=== PATIENT | male | born 1965 | race Caucasian/White ===

== ENCOUNTER 2018-04-11 15:06 | Emergency (ER) | payer OTHER ==
[2018-04-11] MEDS ORDERED: DEXAMETHASONE 10 MG/ML VIAL ONE (15:58)
[2018-04-11] MEDS ORDERED: KETOROLAC 30 MG/ML INJ ONE (15:59)
--- NOTE | 2018-04-11 17:05 | ER ---
Nurse's Notes [facility] Name: Jose Francisco Machado Age: 52 yrs Sex: Male : 1965 Arrival Date: 04/11/2018 Time: 15:09 Bed 27 Private MD: KENDRA GARDNER Diagnosis: Sciatica, left side Presentation: 04/11 15:13 Presenting complaint: Patient states: Left hip pain that radiated to left leg. Hx hb sciatica. Reports pain is similar. Denies injury. Transition of care: patient was not received from another setting of care. Onset of symptoms was April 10, 2018. Risk Assessment: Do you want to hurt yourself or someone else? Patient reports no desire to harm self or others. Initial Sepsis Screen: Does the patient meet any 2 criteria? No. Patient's initial sepsis screen is negative. Does the patient have a suspected source of infection? No. Patient's initial sepsis screen is negative. Care prior to arrival: None. 15:13 Method Of Arrival: Ambulatory hb 15:13 Acuity: SUSI 4 hb Historical: - Allergies: 15:18 Vicodin (Rash); hb 15:18 Cipro; hb - Home Meds: 15:18 losartan-hydrochlorothiazide Oral [Active]; metformin 500 mg Oral tr24 1 tab once daily hb [Active]; gabapentin 300 mg oral cap [Active]; meloxicam oral oral [Active]; - PMHx: 15:18 Diabetes - NIDDM; Hypertension; hb - PSHx: 15:18 Hernia repair; back; neck; right shoulder; hb - Immunization history:: Adult Immunizations up to date. - Social history:: Smoking status: Patient/guardian denies using tobacco. - Ebola Screening: : No symptoms or risks identified at this time. Screenin:41 Abuse screen: Denies threats or abuse. Nutritional screening: No deficits noted. tl3 Tuberculosis screening: No symptoms or risk factors identified. Fall Risk None identified. Assessment: 15:41 General: Appears distressed, uncomfortable, well groomed, well developed, well tl3 nourished, Behavior is cooperative, appropriate for age, crying. Pain: Complains of pain in pain that starts in the left buttock, radiates through hip and down left leg to the foot. Neuro: Level of Consciousness is awake, alert, Oriented to person, place, time, situation, Appropriate for age. Cardiovascular: Heart tones S1 S2 present Patient's skin is warm and dry. Respiratory: Airway is patent Respiratory effort is even, unlabored, Respiratory pattern is regular, symmetrical, Breath sounds are clear bilaterally. GI: No deficits noted. No signs and/or symptoms were reported involving the gastrointestinal system. : No deficits noted. No signs and/or symptoms were reported regarding the genitourinary system. EENT: No deficits noted. No signs and/or symptoms were reported regarding the EENT system. Derm: No deficits noted. No signs and/or symptoms reported regarding the dermatologic system. Musculoskeletal: No deficits noted. No signs and/or symptoms reported regarding the musculoskeletal system. 16:30 Reassessment: Patient appears in no apparent distress at this time. No changes from rk2 previously documented assessment. Patient and/or family updated on plan of care and expected duration. Pain level reassessed. No needs voiced \T\ this time. Vital Signs: 15:16 BP 117 / 101; Pulse 88; Resp 16; Temp 98.1; Pulse Ox 100% on R/A; Weight 127.01 kg; hb Height 6 ft. 2 in. (187.96 cm); Pain 10/10; 15:41 BP 141 / 94; Pulse 89; Resp 18; Pulse Ox 100% on R/A; tl3 16:52 BP 144 / 69; Pulse 110; Resp 18; Pulse Ox 97% on R/A; tl3 15:16 Body Mass Index 35.95 (127.01 kg, 187.96 cm) hb ED Course: 15:09 Patient arrived in ED. mr 15:09 LA, LA is Private Physician. mr 15:16 Triage completed. hb 15:18 Arm band placed on left wrist. hb 15:19 Arina Smallwood, MERCEDES is Primary Nurse. rk2 15:24 David Taylor NP is PHCP. pm1 15:24 Mckinley Rasmussen MD is Attending Physician. pm1 15:41 Patient has correct armband on for positive identification. Bed in low position. Side tl3 rails up X 1. Adult w/ patient. Pulse ox on. NIBP on. 15:41 No provider procedures requiring assistance completed. tl3 17:54 Patient did not have IV access during this emergency room visit. rk2 Administered Medications: 16:02 Drug: Decadron 10 mg Route: IM; Site: left deltoid; rk2 17:53 Follow up: Response: No adverse reaction rk2 16:03 Drug: TORadol 60 mg Route: IM; Site: right deltoid; rk2 17:53 Follow up: Response: No adverse reaction rk2 17:17 Drug: morphine 4 mg Route: IM; Site: right deltoid; rk2 17:52 Follow up: Response: No adverse reaction; given before DC rk2 Intake: Outcome: 17:03 Discharge ordered by MD. pm1 17:53 Discharged to home ambulatory, with family. rk2 17:53 Condition: improved 17:53 Discharge instructions given to patient, Prescriptions given X 2. 17:54 Patient left the ED. rk2 Signatures: Franci Massey ClaudiaDavid, CRACK OFF PERSON CRACK OFF PERSON pm1 Velma Quijano, RN RN Arina Smallwood RN RN rk2 Alma Martinez RN RN tl3 Corrections: (The following items were deleted from the chart) 15:59 15:41 Pain: Complains of pain in pain that starts in the left lower back, radiates tl3 through hip and down left leg to the foot tl3
--- NOTE | 2018-04-11 17:05 | EDPHYS ---
Physician Documentation [facility] Name: Jose Francisco Machado Age: 52 yrs Sex: Male : 1965 Arrival Date: 04/11/2018 Time: 15:09 Bed 27 Private MD: KENDRA, [place] ED Physician Mckinley Rasmussen HPI: 04/11 17:30 This 52 yrs old Male presents to ER via Ambulatory with complaints of Left pm1 hip pain. 17:30 The patient presents with pain. The symptoms are located in the Left hip. Onset: The pm1 symptoms/episode began/occurred yesterday. The pain radiates to the left leg. Associated signs and symptoms: Pertinent negatives: abdominal pain, chest pain, dysuria, fever, incontinence, numbness, vomiting, weakness. The problem was sustained Standing up from seated position. Patient with history of sciatica treated at [facility] with steroid injections and surgery in the past. Modifying factors: The patient symptoms are alleviated by lying flat, the patient symptoms are aggravated by movement. Severity of symptoms: in the emergency department the symptoms are actually worse. The patient has experienced similar episodes in the past, multiple times, chronically. 17:30 No trauma. pm1 Historical: - Allergies: 15:18 Vicodin (Rash); hb 15:18 Cipro; hb - Home Meds: 15:18 losartan-hydrochlorothiazide Oral [Active]; metformin 500 mg Oral tr24 1 tab once daily hb [Active]; gabapentin 300 mg oral cap [Active]; meloxicam oral oral [Active]; - PMHx: 15:18 Diabetes - NIDDM; Hypertension; hb - PSHx: 15:18 Hernia repair; back; neck; right shoulder; hb - Immunization history:: Adult Immunizations up to date. - Social history:: Smoking status: Patient/guardian denies using tobacco. - Ebola Screening: : No symptoms or risks identified at this time. ROS: 17:30 Constitutional: Negative for fever, chills, and weight loss, Eyes: Negative for injury, pm1 pain, redness, and discharge, ENT: Negative for injury, pain, and discharge, Neck: Negative for injury, pain, and swelling, Cardiovascular: Negative for chest pain, palpitations, and edema, Respiratory: Negative for shortness of breath, cough, wheezing, and pleuritic chest pain, Abdomen/GI: Negative for abdominal pain, nausea, vomiting, diarrhea, and constipation, Back: Negative for injury and pain. 17:30 Skin: Negative for injury, rash, and discoloration, Neuro: Negative for headache, weakness, numbness, tingling, and seizure. 17:30 MS/extremity: Positive for left hip pain, Negative for decreased range of motion, deformity, paresthesias, tingling. Exam: 17:30 Constitutional: This is a well developed, well nourished patient who is awake, alert, pm1 and in no acute distress. Head/Face: Normocephalic, atraumatic. Eyes: Pupils equal round and reactive to light, extra-ocular motions intact. Lids and lashes normal. Conjunctiva and sclera are non-icteric and not injected. Cornea within normal limits. Periorbital areas with no swelling, redness, or edema. ENT: Nares patent. No nasal discharge, no septal abnormalities noted. Tympanic membranes are normal and external auditory canals are clear. Oropharynx with no redness, swelling, or masses, exudates, or evidence of obstruction, uvula midline. Mucous membranes moist. Neck: Trachea midline, no thyromegaly or masses palpated, and no cervical lymphadenopathy. Supple, full range of motion without nuchal rigidity, or vertebral point tenderness. No Meningismus. Chest/axilla: Normal chest wall appearance and motion. Nontender with no deformity. No lesions are appreciated. Cardiovascular: Regular rate and rhythm with a normal S1 and S2. No gallops, murmurs, or rubs. No pulse deficits. Respiratory: Lungs have equal breath sounds bilaterally, clear to auscultation and percussion. No rales, rhonchi or wheezes noted. No increased work of breathing, no retractions or nasal flaring. Abdomen/GI: Soft, non-tender, with normal bowel sounds. No distension or tympany. No guarding or rebound. No evidence of tenderness throughout. Back: No spinal tenderness. No costovertebral tenderness. Full range of motion. Skin: Warm, dry with normal turgor. Normal color with no rashes, no lesions, and no evidence of cellulitis. MS/ Extremity: Pulses equal, no cyanosis. Neurovascular intact. Full, normal range of motion. 17:30 Neuro: Orientation: is normal, Motor: is normal, moves all fours, strength is 5/5 in all extremities, Sensation: is normal, no obvious gross deficits, Babinski testing is normal. Vital Signs: 15:16 BP 117 / 101; Pulse 88; Resp 16; Temp 98.1; Pulse Ox 100% on R/A; Weight 127.01 kg; hb Height 6 ft. 2 in. (187.96 cm); Pain 10/10; 15:41 BP 141 / 94; Pulse 89; Resp 18; Pulse Ox 100% on R/A; tl3 16:52 BP 144 / 69; Pulse 110; Resp 18; Pulse Ox 97% on R/A; tl3 15:16 Body Mass Index 35.95 (127.01 kg, 187.96 cm) hb MDM: 15:24 Patient medically screened. pm1 17:03 Data reviewed: vital signs. Data interpreted: Pulse oximetry: on room air is 97 %. pm1 Interpretation: normal. Counseling: I had a detailed discussion with the patient and/or guardian regarding: the historical points, exam findings, and any diagnostic results supporting the discharge/admit diagnosis, the need for outpatient follow up, to return to the emergency department if symptoms worsen or persist or if there are any questions or concerns that arise at home. Administered Medications: 16:02 Drug: Decadron 10 mg Route: IM; Site: left deltoid; rk2 17:53 Follow up: Response: No adverse reaction rk2 16:03 Drug: TORadol 60 mg Route: IM; Site: right deltoid; rk2 17:53 Follow up: Response: No adverse reaction rk2 17:17 Drug: morphine 4 mg Route: IM; Site: right deltoid; rk2 17:52 Follow up: Response: No adverse reaction; given before DC rk2 Disposition: 04/12 14:10 Co-signature as Attending Physician, Mckinley Rasmussen MD I agree with the assessment and shira plan of care. Disposition: 04/11/18 17:03 Discharged to Home. Impression: Sciatica, left side. - Condition is Stable. - Discharge Instructions: Sciatica. - Prescriptions for Tylenol- Codeine #3 300-30 mg Oral Tablet - take 2 tablets by ORAL route every 6 hours As needed; 20 tablet. Medrol (Edmond) 4 mg Oral Tablets, Dose Pack - take 1 tablet by ORAL route as directed - follow package instructions; 1 packet. - Medication Reconciliation Form, Thank You Letter, Prescription Opioid Use, Work release form form. - Follow up: Emergency Department; When: As needed; Reason: Worsening of condition. Follow up: Private Physician; When: 2 - 3 days; Reason: Recheck today's complaints, Continuance of care, Re-evaluation by your physician. - Problem is new. - Symptoms have improved. Signatures: Mckinley Rasmussen MD MD cha Marinas, Patrick, NP COUNTY ASSESSOR pm1 Velma Quijano RN RN Arina Smallwood RN RN rk2 Corrections: (The following items were deleted from the chart) 04/11 17:54 17:03 04/11/2018 17:03 Discharged to Home. Impression: Sciatica, left side. Condition rk2 is Stable. Forms are Medication Reconciliation Form, Thank You Letter, Antibiotic Education, Prescription Opioid Use. Follow up: Emergency Department; When: As needed; Reason: Worsening of condition. Follow up: Private Physician; When: 2 - 3 days; Reason: Recheck today's complaints, Continuance of care, Re-evaluation by your physician. Problem is new. Symptoms have improved. pm1
[2018-04-11] MEDS ORDERED: MORPHINE 4 MG/ML SYR ONE (17:16)
== END 2018-04-11 17:54 | disposition home or self-care (01) ==
LOC: ER 15:06
DX: M54.32 Sciatica, left side (principal); E11.9 Type 2 diabetes mellitus without complications; I10 Essential (primary) hypertension; Z88.6 Allergy status to analgesic agent; Z88.3 Allergy status to other anti-infective agents
CPT/HCPCS: 96372; 99283; J1100

== ENCOUNTER 2019-05-28 11:48 | Emergency (ER) | payer OTHER ==
--- OUTSIDE RECORDS SUMMARY | 2019-05-28 11:49 | XMS REPORT ---
:1965 [facility] Address [address] [place] [address] Dr. Latham [address] [place] [id number] Care Team Providers Name Role Phone Unavailable Unavailable Unavailable Problems This patient has no known problems. Allergies, Adverse Reactions, Alerts This patient has no known allergies or adverse reactions. Medications This patient has no known medications.
[2019-05-28 13:28] LABS: Absolute Lymphocytes (CBC) 1.2 K/uL (0.7-4.9); Basophils % 0.1 % (0-1.3); Hematocrit 43.8 % (39.6-49.0); Lymphocytes % 7.7 % (15.3-44.8); MPV 9.5 fL (7.6-11.3)
[2019-05-28 13:30] LABS: Protime INR 1.22
[2019-05-28 13:38] LABS: ALT/SGPT 29 U/L (12-78); AST/SGOT 9 U/L (15-37); Alkaline Phosphatase 90 U/L (45-117); BUN Blood Urea Nitrogen 16 mg/dL (7-18); Bicarbonate 27 mmol/L (21-32); Bilirubin Direct 0.2 mg/dL (0-0.2); Bilirubin Total 0.9 mg/dL (0.2-1.0); Glucose Level 115 mg/dL (74-106); Lipase 40 U/L (73-393); Magnesium 2.3 mg/dL (1.8-2.4); NT PRO-BNP 29 pg/mL (<125); Potassium 3.8 mmol/L (3.5-5.1); Protein, Total 7.3 g/dL (6.4-8.2); Sodium Level 139 mmol/L (136-145); Troponin (Emerg Dept Use Only) < 0.02 ng/mL (0.0-0.045)
--- NOTE | 2019-05-28 14:34 | RAD REPORT ---
EXAM DESCRIPTION: CT - Abdomen Pelvis W Contrast - 05/28/2019 2:20 pm CLINICAL HISTORY: Abdominal pain with diarrhea COMPARISON: none. TECHNIQUE: Computed axial tomography of the abdomen pelvis was obtained. 100 cc Isovue-300 was admin istered intravenously. Oral contrast was not requested which limits evaluation of bowel. All CT scans are performed using dose optimization technique as appropriate and may include automated exposure control or mA/KV adjustment according to patient size. FINDINGS: The liver, spleen, pancreas, adrenal and kidneys appear unremarkable. There is no evidence of diverticulitis. A normal appendix Small right inguinal hernia contains fat Spondylolysis L5. Sclerosis involving the vertebral endplates of L2 and L3 IMPRESSION: Sclerosis involving the vertebral endplates of L2 and L3 . Most likely this is secondary to degenerative changes. An inflammatory/infectious process can also result this appearance and shou ld be correlated clinically with appropriate lab values.
--- NOTE | 2019-05-28 14:36 | RAD REPORT ---
EXAM DESCRIPTION: Donna Single View05/28/2019 1:48 pm CLINICAL HISTORY: Chest pain COMPARISON: 2017 FINDINGS: The lungs appear clear of acute infiltrate. The heart is normal size IMPRESSION: No acute abnormalities displayed
[2019-05-28 15:38] LABS: Blood Morphology Comment NOT SEEN (NOT SEEN); Platelet Estimate ADEQ; Urine White Blood Cell Casts OK
--- NOTE | 2019-05-28 16:04 | EDPHYS ---
Physician Documentation [facility] Name: Jose Francisco Machado Age: 53 yrs Sex: Male : 1965 Arrival Date: 05/28/2019 Time: 11:50 Bed 15 Private MD: ED Physician Mckinley Rasmussen HPI: 05/28 13:00 This 53 yrs old Male presents to ER via Ambulatory with complaints of cp Abdominal Pain, Weakness, Dizziness. 13:00 The patient presents with abdominal pain mid abdomen. cp 13:00 Onset: The symptoms/episode began/occurred this morning, upon awakening. cp 13:00 The symptoms do not radiate. Associated signs and symptoms: Pertinent positives: cp diarrhea, headache, vomiting, dizziness, general weakness, Pertinent negatives: blood in stools, chest pain, constipation, dysuria, fever, palpitations, shortness of breath, testicular pain. 13:00 The symptoms are described as achy. cp Historical: - Allergies: 12:09 Cipro; aj1 12:09 Vicodin (rash); aj1 12:09 Clindamycin; aj1 12:09 Percocet; aj1 - PMHx: 12:09 Diabetes - NIDDM; Hypertension; aj1 - Immunization history:: Flu vaccine is up to date. - Social history:: Smoking status: Patient uses tobacco products, smokes one pack cigarettes per day. - Ebola Screening: : Patient denies travel to an Ebola-affected area in the 21 days before illness onset. ROS: 13:05 Constitutional: Negative for body aches, chills, fever, poor PO intake. cp 13:05 Eyes: Negative for injury, pain, redness, and discharge. cp 13:05 Neck: Negative for pain with movement, pain at rest, stiffness. cp 13:05 Cardiovascular: Negative for chest pain, edema, palpitations. 13:05 Respiratory: Negative for cough, shortness of breath, wheezing. 13:05 Abdomen/GI: Positive for abdominal pain, diarrhea, Negative for vomiting, constipation, black/tarry stool, rectal bleeding. 13:05 Back: Negative for pain at rest, pain with movement, radiated pain. 13:05 : Negative for urinary symptoms, flank pain, testicular pain cp 13:05 Skin: Negative for cellulitis, rash. 13:05 Neuro: Positive for dizziness, headache, Negative for altered mental status, weakness. 13:05 All other systems are negative. Exam: 13:12 Constitutional: The patient appears in no acute distress, alert, awake, cp non-diaphoretic, well developed, well nourished. 13:12 Head/Face: Normocephalic, atraumatic. cp 13:12 Eyes: Periorbital structures: appear normal, Conjunctiva: normal, no exudate, no injection, Sclera: no appreciated abnormality, Lids and lashes: appear normal, bilaterally. 13:12 ENT: External ear(s): are unremarkable, Nose: is normal, Mouth: Lips: moist, Oral mucosa: pink and intact, moist, Posterior pharynx: is normal, airway is patent, no erythema, no exudate. 13:12 Neck: ROM/movement: is normal, is supple, without pain, no range of motions limitations, no meningismus, no nuchal rigidity. 13:12 Chest/axilla: Inspection: normal, Palpation: is normal, no crepitus, no tenderness. 13:12 Cardiovascular: Rate: normal, Rhythm: regular, Edema: is not appreciated, JVD: is not appreciated. 13:12 Respiratory: the patient does not display signs of respiratory distress, Respirations: normal, no use of accessory muscles, no retractions, no splinting, no tachypnea, labored breathing, is not present, Breath sounds: are clear throughout, no decreased breath sounds, no stridor, no wheezing. 13:12 Abdomen/GI: Inspection: abdomen appears normal, Bowel sounds: active, all quadrants, Palpation: soft, in all quadrants, mild abdominal tenderness, in the , mid upper abdomen, rebound tenderness, is not appreciated, voluntary guarding, is not appreciated, involuntary guarding, is not appreciated. 13:12 Back: pain, is absent, ROM is normal, vertebral tenderness, is not appreciated. 13:12 Skin: no rash present. 13:12 Neuro: Orientation: to person, place \T\ time. Mentation: is normal, Motor: moves all fours, strength is normal. 13:15 ECG was reviewed by the Attending Physician. cp Vital Signs: 12:09 BP 141 / 82; Pulse 81; Resp 18; Temp 98.9; Pulse Ox 97% on R/A; Weight 120.2 kg (R); aj1 Height 6 ft. (182.88 cm) (R); Pain 3/10; 13:36 BP 123 / 70 Supine; Pulse 68; Resp 17; Temp 99.2(O); Pulse Ox 98% ; lt1 13:37 BP 109 / 71 Sitting; Pulse 75; lt1 13:37 BP 122 / 77 Standing; lt1 14:30 BP 124 / 77; Pulse 72; Resp 17; Temp 98.9(O); Pulse Ox 97% on R/A; Pain 3/10; rb1 15:30 BP 122 / 73; Pulse 73; Resp 17; Temp 98.4(O); Pulse Ox 98% on R/A; Pain 2/10; rb1 16:10 BP 123 / 76; Pulse 71; Resp 17; Temp 98.5; Pulse Ox 98% on R/A; rv 12:09 Body Mass Index 35.94 (120.20 kg, 182.88 cm) aj1 MDM: 12:24 Patient medically screened. cp 13:00 Differential diagnosis: cholecystitis, Cholelithiasis, diverticulitis, gastritis, cp non-specific abd pain, pancreatitis, Peptic Ulcer Disease, Perf. Duodenal Ulcer, Perf. Gastric Ulcer, Pyelonephritis, Ureterolithiasis, urinary tract infection. 16:00 Data reviewed: vital signs, nurses notes, lab test result(s), radiologic studies, CT cp scan. 16:00 Special discussion: Based on the patient's Hx, exam, and Dx evaluation, there is no cp indication for emergent surgery or inpatient Tx. It is understood by the patient/guardian that if the Sx's persist or worsen they need to return immediately for re-evaluation. 16:00 Counseling: I had a detailed discussion with the patient and/or guardian regarding: the cp historical points, exam findings, and any diagnostic results supporting the discharge/admit diagnosis, lab results, radiology results, the need for outpatient follow up, a last cleaner, to return to the emergency department if symptoms worsen or persist or if there are any questions or concerns that arise at home. 16:00 Response to treatment: the patient's symptoms have mildly improved after treatment, and cp as a result, I will discharge patient. 05/28 12:35 Order name: Basic Metabolic Panel; Complete Time: 13:48 cp 05/28 13:46 Interpretation: Normal except: GLUC 115; GFR 79. cp 05/28 12:35 Order name: CBC with Diff 05/28 13:47 Interpretation: Normal except: WBC 15.1; DEEPAK% 85.8; LYM% 7.7; NEUT A 13.0. 05/28 12:35 Order name: LFT's; Complete Time: 13:48 cp 05/28 12:35 Order name: Magnesium; Complete Time: 13:48 05/28 12:35 Order name: NT PRO-BNP; Complete Time: 13:48 cp 05/28 12:35 Order name: PT-INR; Complete Time: 13:48 05/28 12:35 Order name: Troponin (emerg Dept Use Only); Complete Time: 13:48 05/28 12:35 Order name: EKG; Complete Time: 12:38 05/28 12:35 Order name: Lipase; Complete Time: 13:48 05/28 14:37 Interpretation: LIP 40; Reviewed. 05/28 12:56 Order name: XRAY Chest (1 view); Complete Time: 14:36 05/28 13:47 Order name: CT Abd/Pelvis - IV Contrast Only; Complete Time: 14:36 05/28 15:38 Order name: CBC Smear Scan EDMS 05/28 16:01 Order name: Urine Dipstick--Ancillary (enter results) 05/28 12:35 Order name: Orthostatics; Complete Time: 13:37 cp 05/28 12:35 Order name: Cardiac monitoring; Complete Time: 13:04 05/28 12:35 Order name: EKG - Nurse/Tech; Complete Time: 13:04 05/28 12:35 Order name: IV Saline Lock; Complete Time: 13:10 05/28 12:35 Order name: Labs collected and sent; Complete Time: 13:10 05/28 12:35 Order name: O2 Per Protocol; Complete Time: 13:04 05/28 12:35 Order name: O2 Sat Monitoring; Complete Time: 13:04 05/28 12:35 Order name: Accucheck Blood Glucose; Complete Time: 13:37 05/28 14:48 Order name: Urine Dipstick-Ancillary (obtain specimen); Complete Time: 16:00 cp EC:15 Rate is 72 beats/min. Rhythm is regular. GA interval is normal. QRS interval is cp prolonged at 108 msec. QT interval is normal. Interpreted by me. Reviewed by me. Administered Medications: No medications were administered Point of Care Testing: Blood Glucose: 13:26 Blood Glucose: 114 mg/dL; lt1 Ranges: Critical Glucose Levels:Adult <50 mg/dl or >400 mg/dl <40 mg/dl or >180 mg/dl Disposition: 05/29 11:23 Co-signature as Attending Physician, Mckinley Rasmussen MD I agree with the assessment and shira plan of care. Disposition: 05/28/19 16:00 Discharged to Home. Impression: Unspecified abdominal pain. - Condition is Stable. - Discharge Instructions: Abdominal Pain, Adult. - Prescriptions for Bentyl 20 mg Oral Tablet - take 2 tablet by ORAL route every 6 hours As needed; 40 tablet. Zofran 4 mg Oral Tablet - take 1 tablet by ORAL route every 12 hours As needed; 20 tablet. - Medication Reconciliation Form, Thank You Letter, Antibiotic Education, Prescription Opioid Use form. - Follow up: Private Physician; When: private GI physician as scheduled for colonoscopy; Reason: Recheck today's complaints. - Problem is new. - Symptoms have improved. Signatures: Dispatcher [employer] EDCinthya Hernandez RN RN aj1 Mckinley Rasmussen MD MD cha Page, Corey, PA PA cp Jeremy Davey, RN RN rv Corrections: (The following items were deleted from the chart) 05/28 16:12 16:00 05/28/2019 16:00 Discharged to Home. Impression: Unspecified abdominal pain. rv Condition is Stable. Forms are Medication Reconciliation Form, Thank You Letter, Antibiotic Education, Prescription Opioid Use. Follow up: Private Physician; When: private GI physician as scheduled for colonoscopy; Reason: Recheck today's complaints. Problem is new. Symptoms have improved. cp
--- NOTE | 2019-05-28 16:04 | ER ---
Nurse's Notes [facility] Name: Jose Francisco Machado Age: 53 yrs Sex: Male : 1965 Arrival Date: 05/28/2019 Time: 11:50 Bed 15 Private MD: Diagnosis: Unspecified abdominal pain Presentation: 05/28 12:07 Presenting complaint: Patient states: "I woke up with a stomach ache, while I was at [facility] I couldn't stand for long because I felt weak and dizzy, I've had a headache on and off" Denies N/V. Reports intermittent diarrhea. Denies fever. Reports epigastric pain. Transition of care: patient was not received from another setting of care. Onset of symptoms was May 28, 2019. Risk Assessment: Do you want to hurt yourself or someone else? Patient reports no desire to harm self or others. Initial Sepsis Screen: Does the patient meet any 2 criteria? No. Patient's initial sepsis screen is negative. Does the patient have a suspected source of infection? No. Patient's initial sepsis screen is negative. Care prior to arrival: None. 12:07 Method Of Arrival: Ambulatory aj1 12:07 Acuity: SUSI 3 aj1 Triage Assessment: 12:09 General: Appears in no apparent distress. uncomfortable, Behavior is calm, cooperative, aj1 appropriate for age. Pain: Complains of pain in epigastric area Pain currently is 3 out of 10 on a pain scale. Quality of pain is described as aching. Neuro: Level of Consciousness is awake, alert, obeys commands. Cardiovascular: Patient's skin is warm and dry. Respiratory: Airway is patent Respiratory effort is even, unlabored, Respiratory pattern is regular, symmetrical. GI: Reports upper abdominal pain. Historical: - Allergies: 12:09 Cipro; aj1 12:09 Vicodin (rash); aj1 12:09 Clindamycin; aj1 12:09 Percocet; aj1 - PMHx: 12:09 Diabetes - NIDDM; Hypertension; aj1 - Immunization history:: Flu vaccine is up to date. - Social history:: Smoking status: Patient uses tobacco products, smokes one pack cigarettes per day. - Ebola Screening: : Patient denies travel to an Ebola-affected area in the 21 days before illness onset. Screenin:11 Abuse screen: Denies threats or abuse. Denies injuries from another. Nutritional rv screening: No deficits noted. Tuberculosis screening: No symptoms or risk factors identified. Fall Risk None identified. Assessment: 12:15 General: Appears in no apparent distress. comfortable, Behavior is calm, cooperative. rb1 Pain: Complains of pain in epigastric area Pain currently is 3 out of 10 on a pain scale. Neuro: Level of Consciousness is awake, alert, obeys commands, Oriented to person, place, time, situation. Cardiovascular: Capillary refill < 3 seconds is brisk in bilateral fingers. Respiratory: Airway is patent Respiratory effort is even, unlabored, Respiratory pattern is regular, symmetrical. GI: Bowel sounds present X 4 quads. Abd is soft Abdomen is tender to palpation in epigastric area. : No signs and/or symptoms were reported regarding the genitourinary system. Derm: Skin is pink, warm \\T\\ dry. Musculoskeletal: Range of motion: intact in all extremities. Vital Signs: 12:09 BP 141 / 82; Pulse 81; Resp 18; Temp 98.9; Pulse Ox 97% on R/A; Weight 120.2 kg (R); aj1 Height 6 ft. (182.88 cm) (R); Pain 3/10; 13:36 BP 123 / 70 Supine; Pulse 68; Resp 17; Temp 99.2(O); Pulse Ox 98% ; lt1 13:37 BP 109 / 71 Sitting; Pulse 75; lt1 13:37 BP 122 / 77 Standing; lt1 14:30 BP 124 / 77; Pulse 72; Resp 17; Temp 98.9(O); Pulse Ox 97% on R/A; Pain 3/10; rb1 15:30 BP 122 / 73; Pulse 73; Resp 17; Temp 98.4(O); Pulse Ox 98% on R/A; Pain 2/10; rb1 16:10 BP 123 / 76; Pulse 71; Resp 17; Temp 98.5; Pulse Ox 98% on R/A; rv 12:09 Body Mass Index 35.94 (120.20 kg, 182.88 cm) aj1 ED Course: 11:50 Patient arrived in ED. as 12:08 Triage completed. aj1 12:09 Arm band placed on Patient placed in an exam room. aj1 12:17 Mckinley Oakley PA is PHCP. cp 12:17 Mckinley Rasmussen MD is Attending Physician. cp 12:39 Rin Veliz, RN is Primary Nurse. rb1 13:08 Initial lab(s) drawn, by me, sent to lab. Inserted saline lock: 20 gauge in right lt1 antecubital area, using aseptic technique. 13:49 XRAY Chest (1 view) In Process Unspecified. EDMS 14:20 CT completed. Patient tolerated procedure well. Patient moved back from CT. mw3 14:21 CT Abd/Pelvis - IV Contrast Only In Process Unspecified. EDMS 16:00 Patient has correct armband on for positive identification. Call light in reach. Side rv rails up X 1. Pulse ox on. NIBP on. 16:11 No provider procedures requiring assistance completed. IV discontinued, intact, rv bleeding controlled, No redness/swelling at site. Pressure dressing applied. Administered Medications: No medications were administered Point of Care Testing: Blood Glucose: 13:26 Blood Glucose: 114 mg/dL; lt1 Ranges: Outcome: 16:00 Discharge ordered by MD. cp 16:12 Discharged to home ambulatory. rv 16:12 Condition: good 16:12 Discharge instructions given to patient, Instructed on discharge instructions, follow up and referral plans. medication usage, Demonstrated understanding of instructions, follow-up care, medications, Prescriptions given X 2. 16:12 Patient left the ED. rv Signatures: Dispatcher [employer] EDCinthya Hernandez, RN RN aj1 Dimple Serrano as Mckinley Oakley PA PA cp Rin Veliz, RN RN rb1 Soniya Villeda mw3 Jeremy Davey RN RN rv Ade Tovar lt1
[2019-05-28 18:12] LABS: Urine Blood NEGATIVE (NEG); Urine Glucose NEGATIVE (NEG); Urine Protein NEGATIVE (NEG); Urine Specific Gravity 1.005 (1.005-1.030); Urine pH 5.5 (5.0-7.0)
--- NOTE | 2019-05-29 06:30 | EKG ---
Test Date: 2019-05-28 Test Time: 12:59:43 Crew Mess Attendant: CHECO MEASUREMENT RESULTS: Intervals: Rate: 72 OK: 172 QRSD: 108 QT: 384 QTc: 420 [place]: P: 66 OK: 172 QRS: 48 T: 52 INTERPRETIVE STATEMENTS: Normal sinus rhythm Normal ECG No previous ECG available for comparison Electronically Signed On 05-29-19 06:28:53 CDT by Waqas Flanagan
== END 2019-05-28 16:12 | disposition home or self-care (01) ==
LOC: ER 11:48
DX: R10.9 Unspecified abdominal pain (principal); I10 Essential (primary) hypertension; F17.210 Nicotine dependence, cigarettes, uncomplicated; Z88.1 Allergy status to other antibiotic agents; Z88.3 Allergy status to other anti-infective agents; Z88.5 Allergy status to narcotic agent
CPT/HCPCS: 36415; 71045; 74177; 80048; 80076; 81003; 82962; 83690; 83735; 83880; 84484; 85025; 85610; 93005; 99284; Q9967

== ENCOUNTER 2019-12-04 15:30 | Emergency (ER) | payer OTHER ==
--- OUTSIDE RECORDS SUMMARY | 2019-12-04 15:32 | XMS REPORT | Summary of Care ---
:1965 Author Organization [facility] Address [address] [place] [address] Care Team Providers Name Role Phone Frankie Rodriguez Primary Care Provider Reason for Visit Reason Comments Follow-up Hormone thearpy Encounter Details Date Type Department Care Team Description 06/10/2019 Office Visit [facility] Toy Renae Hypogonadism in male Endocrinology- [address] [place] [address] (Primary Dx) [facility] [address] [phone] [place] [address] [address] [place] [address] Allergies Active Allergy Reactions Severity Noted Date Comments Clindamycin Hives 12/17/2018 Oxycodone-Acetaminophen Other - See comments 12/17/2018 Generalized skin redness and papules on inner hands documented as of this encounter (statuses as of 07/10/2019) Medications Medication Sig Dispensed Refills Start End Date Status Date hydroCHLOROthiazide 12.5 Take 12.5 mg 0 Active mg capsule by mouth daily. losartan 25 mg tablet Take 25 mg 0 Active by mouth daily. meloxicam 15 mg tablet Take 15 mg 0 Active by mouth daily. aspirin 81 mg chewable Take 81 mg 0 Active tablet by mouth daily. cyclobenzaprine HCl Take by 0 Active (FLEXERIL ORAL) mouth 3 (three) times daily as needed. rivaroxaban (XARELTO Take by 0 Active ORAL) mouth. testosterone (ANDROGEL) Apply 2 Pump 75 g 3 Active 20.25 mg/1.25 gram (1.62 to area(s) 9 %) gel pumpIndications: daily. Hypogonadism in male Blood-Glucose Meter Use as 1 Kit 0 Active (ONETOUCH ULTRA2 METER) directed 9 KitIndications: Hypogonadism in male lancets (ONE TOUCH Use as 90 Each 1 Active DELICA) 33 gauge directed 9 MiscIndications: Hypogonadism in male blood sugar diagnostic Use as 90 Strip 3 Active (ONETOUCH ULTRA BLUE directed 9 TEST STRIP) stripIndications: Hypogonadism in male metFORMIN 500 mg Take 1 180 tablet 3 Active tabletIndications: tablet by 9 Hypogonadism in male mouth 2 (two) times daily with meals. metFORMIN 500 mg tablet Take 500 mg 0 06/10/20 Discontinued by mouth 2 19 (two) times daily with meals. documented as of this encounter (statuses as of 07/10/2019) Active Problems Not on filedocumented as of this encounter (statuses as of 07/10/2019) Social History Tobacco Use Types Packs/Day Years Used Date Current Every Day Smoker Cigarettes 1 30 Started: 12/17/1988 Smokeless Tobacco: Never Used Alcohol Use Drinks/Week oz/Week Comments Yes 6 Cans of beer 3.6 Sex Assigned at Date Recorded Not on file Job Start Date Occupation Industry Not on file Not on file Not on file Travel History Travel Start Travel End No recent travel history available. documented as of this encounter Last Filed Vital Signs Vital Sign Reading Time Taken Comments Blood Pressure 125/80 06/10/2019 10:00 AM CDT Pulse 58 06/10/2019 10:00 AM CDT Temperature - - Respiratory Rate 16 06/10/2019 10:00 AM CDT Oxygen Saturation - - Inhaled Oxygen Concentration - - Weight 123.5 kg (272 lb 3.2 oz) 06/10/2019 10:00 AM CDT Height 188 cm (6' 2") 06/10/2019 10:00 AM CDT Body Mass Index 34.95 06/10/2019 10:00 AM CDT documented in this encounter Patient Instructions Patient InstructionsToy Renae - 06/10/2019 10:00 AM CDTTake Androgel 1.62% 2 pump depressions daily. We will check levels in 3 months, and talk more fully about the diabetes then. documented in this encounter Progress Notes [employer] Toy H - 06/10/2019 10:00 AM CDT Chief Complaint Patient presents with Follow-up Hormone thearpy HPI Patient is a 53 year old man who is here today for f/u on hypogonadism. He reports worsening erectile dysfunction, diminished sexual drive, no AM erections Patient denies hx of past yissel trauma or injury and past testicular injury. Prediabetes: has been fairly controlled with metformin 500mg BID HISTORY Past Medical History: Diagnosis Date Diabetes mellitus Hypertension Hypogonadism in male Low back pain Family History Problem Relation Age of Onset Diabetes Mother Heart Father Past Surgical History: Procedure Laterality Date HERNIA REPAIR SHOULDER ARTHROPLASTY SPINE SURGERY Social History Socioeconomic History Marital status: Spouse name: Not on file Number of children: Not on file Years of education: Not on file Highest education level: Not on file Occupational History Not on file Social Needs Financial resource strain: Not on file Food insecurity: Worry: Not on file Inability: Not on file Transportation needs: Medical: Not on file Non-medical: Not on file Tobacco Use Smoking status: Current Every Day Smoker Packs/day: 1.00 Years: 30.00 Pack years: 30.00 Types: Cigarettes Start date: 12/17/1988 Smokeless tobacco: Never Used Substance and Sexual Activity Alcohol use: Yes Alcohol/week: 3.6 oz Types: 6 Cans of beer per week Drug use: Not on file Sexual activity: Not on file Lifestyle Physical activity: Days per week: Not on file Minutes per session: Not on file Stress: Not on file Relationships Social connections: Talks on phone: Not on file Gets together: Not on file Attends yazdanism service: Not on file Active member of club or organization: Not on file Attends meetings of clubs or organizations: Not on file Relationship status: Not on file Intimate partner violence: Fear of current or ex partner: Not on file Emotionally abused: Not on file Physically abused: Not on file Forced sexual activity: Not on file Other Topics Concern Not on file Social History Narrative Not on file REVIEW OF SYSTEMS Constitutional: +weight change, + fatigue Eyes: denies blurry vision, denies diplopia and denies pain. Neck: denies pain, denies swollen glands Cardiovascular: denies chest pain , denies irregular pulse and denies palpitations. Respiratory: denies dyspnea on exertion and denies shortness of breath. Gastrointestinal: denies abdominal pain, denies constipation and denies diarrhea. Genitourinary: +erectile dysfunction, diminished sexual drive Musculoskeletal: denies back pain, denies muscle pain and denies weakness. Neuro: denies numbness , denies tingling and denies tremor. Endocrine: denies goiter, denies hair loss, denies intolerance to cold, denies intolerance to heat, denies polydipsia, denies polyphagia and denies polyuria. PHYSICAL EXAM BP 125/80 (BP Location: Left arm, Patient Position: Sitting, BP CUFF SIZE: Adult Large) | Pulse 58| Resp 16 | Ht 6' 2" (1.88 m) | Wt 272 lb 3.2 oz ( 123.5 kg) | BMI 34.95 kg/m General: alert, oriented times three, no apparent distress, appearing age appropriate. Eyes: anicteric sclera, pupils are equally round and reactive to light and extraocular movements normal. Neck: neck supple, no adenopathy, no goiter Thyroid: normal size and soft in consistency to palpation, no palpable thyroid nodule, no bruits. Lungs: good diaphragmatic excursion, lungs clear to auscultation bilaterally. Heart: regular rate and rhythm, no murmurs, gallops or rubs. Abdomen: abdomen soft, non-tender, normal active bowel sounds Extremities/Musculoskeletal: no cyanosis, no edema Outside labs 12/2018 [id number] A1C=5.9 Component Latest Ref Rng & Units 02/04/2019 01/14/2019 WBC x10~3 4.20 - 10.70 10*3/L 5.12 RBC x10~6 4.26 - 5.52 10*6/L 4.81 HGB 12.2 - 16.4 g/dL 14.6 HCT 38.4 - 49.3 % 43.0 MCV 81.7 - 95.6 fL 89.4 MCH 26.1 - 32.7 pg 30.4 MCHC 31.2 - 35.0 g/dL 34.0 RDW-SD 38.5 - 51.6 fL 39.6 RDW-CV 12.1 - 15.4 % 12.1 PLT x10~3 150 - 328 10*3/L 207 MPV 9.8 - 13.0 fL 10.4 NRBC /100 WBC 0.0 - 10.0 /100 WBCs 0.0 NRBC x10~3 10*3/L <0.01 GRAN MAT (NEUT) % % 48.9 IMM GRAN % % 0.20 LYMPH% % 34.6 MONO % % 14.5 EOS % % 1.4 BASO % % 0.4 GRAN MAT x10~3(ANC) 1.99 - 6.95 10*3/uL 2.51 IMM GRAN x10~3 0.00 - 0.06 10*3/uL <0.03 LYMPH x10~3 1.09 - 3.23 10*3/uL 1.77 MONO x10~3 0.36 - 1.02 10*3/uL 0.74 EOS x10~3 0.06 - 0.53 10*3/uL 0.07 BASO x10~3 0.01 - 0.09 10*3/uL <0.03 TESTOS 300 - 890 ng/dL 180 (L) Sex Hormone Binding Globulin 11 - 80 nmol/L 23 TESTOS,BIO 130.0 - 680.0 ng/dL 106.5 (L) TESTOS, FREE 47.0 - 244.0 pg/mL 35.9 (L) FSH mIU/mL 10.91 PSA <=4.00 ng/mL 0.65 LH mIU/mL 5.60 TESTOST 72.0 - 623.0 ng/dL 94.6 ASSESSMENT/PLAN ICD-10-CM ICD-9-CM 1. Hypogonadism in male E29.1 257.2 Take Androgel 1.62% 2 pump depressions daily F/u 3 months for lab check/prediabetes evaluation. documented in this encounter Plan of Treatment Date Type Specialty Care Team Description 10/14/2019 Office Visit Endocrinology Diabetes & [facility] Met[facility] [address] [place] [address] [place] [address] [phone] Health Maintenance Due Date Last Done Comments HEPATITIS C (HCV) SCREEN 1965 PNEUMOCOCCAL 0-64 YEARS COMBINED SERIES (1 - 1970 PPSV23) DTaP,Tdap,and Td Vaccines (1 - Tdap) 1983 COLONOSCOPY 2014 Zoster Recombinant Vaccine (SHINGRIX) (1 of 2) 2014 INFLUENZA VACCINE (#1) 2019 documented as of this encounter Results Not on filedocumented in this encounter Visit Diagnoses Diagnosis Hypogonadism in male - Primary documented in this encounter documented as of this encounter
--- OUTSIDE RECORDS SUMMARY | 2019-12-04 15:32 | XMS REPORT | Summary of Care ---
:1965 Author Organization [facility] - Health Address [address] [place] [address] Care Team Providers Name Role Phone Frankie Rodriguez Primary Care Provider Encounter Details Date Type Department Care Team Description 06/10/2019 Orders Only [facility] Doctor Unassigned, No [address] [facility] [place] [address] [address] [place] [address] Allergies Active Allergy Reactions Severity Noted Date Comments Clindamycin Hives 12/17/2018 Oxycodone-Acetaminophen Other - See comments 12/17/2018 Generalized skin redness and papules on inner hands documented as of this encounter (statuses as of 06/10/2019) Medications Medication Sig Dispensed Refills Start Date End Date Status hydroCHLOROthiazide 12.5 mg Take 12.5 mg 0 Active capsule by mouth daily. losartan 25 mg tablet Take 25 mg by 0 Active mouth daily. meloxicam 15 mg tablet Take 15 mg by 0 Active mouth daily. aspirin 81 mg chewable Take 81 mg by 0 Active tablet mouth daily. metFORMIN 500 mg tablet Take 500 mg 0 Active by mouth 2 (two) times daily with meals. cyclobenzaprine HCl Take by 0 Active (FLEXERIL ORAL) mouth 3 (three) times daily as needed. documented as of this encounter (statuses as of 06/10/2019) Active Problems Not on filedocumented as of this encounter (statuses as of 06/10/2019) Social History Tobacco Use Types Packs/Day Years [...] of this encounter Last Filed Vital Signs Not on filedocumented in this encounter Plan of Treatment Date Type Specialty Care Team Description 06/10/2019 Office Visit Endocrinology Diabetes [facility] Met[facility] [address] [place] [address] [phone] Health Maintenance Due Date Last Done Comments HEPATITIS C (HCV) SCREEN 1965 PNEUMOCOCCAL 0-64 YEARS COMBINED 1970 SERIES (1 of 1 - PPSV23) DTaP,Tdap,and Td Vaccines (1 - 1983 Tdap) COLONOSCOPY 2014 Zoster Recombinant Vaccine 2014 (SHINGRIX) (1 of 2) INFLUENZA VACCINE 07/03/2019 07/23/2016, 07/27/2015, 09/01/2014, Additional history exists documented as of this encounter Procedures Procedure Name Priority Date/Time Associated Diagnosis Comments NO SHOW OR MISSED Routine 06/10/2019 9:24 AM APPOINTMENT POLICY CDT ACKNOWLEDGEMENT documented in this encounter Results Not on filedocumented in this encounter Insurance Payer Benefit Plan / Group Subscriber ID Effective Dates Phone Address Type JOSEFINA BROOKS [employer] [id number] 2018-Present PPO documented as of this encounter
--- OUTSIDE RECORDS SUMMARY | 2019-12-04 15:32 | XMS REPORT | Summary of Care ---
:1965 Author Organization [facility] Address [address] [place] [address] Care Team Providers Name Role Phone Frankie Rodriguez Primary Care Provider Reason for Visit Reason Comments Follow-up Hormone thearpy Encounter Details Date Type Department Care Team Description 06/10/2019 Office Visit [facility] Toy Renae Hypogonadism in male Endocrinology- [address] [place] [address] (Primary Dx) [facility] [address] [phone] [place] [address] [address] [place] [address] Allergies Active Allergy Reactions Severity [...] file Gets together: Not on file Attends restoration service: Not on file Active member of [...] no cyanosis, no edema Outside labs 12/2018 [id number]=174 A1C=5.9 Component Latest Ref Rng & Units [...] Visit Endocrinology Diabetes & [facility] Metabolism [address] [place] [address] [place] [address] [phone] Health Maintenance Due Date Last Done Comments [...]
--- OUTSIDE RECORDS SUMMARY | 2019-12-04 15:32 | XMS REPORT | Summary of Care ---
:1965 Author Organization [facility] Address [address] [place] [address] Care Team Providers Name Role Phone Frankie Rodriguez Primary Care Provider Reason for Visit Reason Comments Notification Encounter Details Date Type Department Care Team Description 06/20/2019 Telephone [facility] Endocrinology- Toy Renae Notification [address] [place] [address] [place] [address] Dr. Perez [phone] [address] [place] [address] Allergies Active Allergy Reactions Severity Noted Date Comments Clindamycin Hives 12/17/2018 Oxycodone-Acetaminophen Other - See comments 12/17/2018 Generalized skin redness and papules on inner hands documented as of this encounter (statuses as of 06/21/2019) Medications Medication Sig Dispensed Refills Start Date End Date Status hydroCHLOROthiazide 12.5 Take 12.5 mg 0 Active mg capsule by mouth daily. losartan 25 mg tablet Take 25 mg by 0 Active mouth daily. meloxicam 15 mg tablet Take 15 mg by 0 Active mouth daily. aspirin 81 mg chewable Take 81 mg by 0 Active tablet mouth daily. cyclobenzaprine HCl Take by mouth 0 Active (FLEXERIL ORAL) 3 (three) times daily as needed. rivaroxaban (XARELTO Take by 0 Active ORAL) mouth. testosterone (ANDROGEL) Apply 2 Pump 75 g 3 06/10/2019 Active 20.25 mg/1.25 gram (1.62 to area(s) %) gel pumpIndications: daily. Hypogonadism in male Blood-Glucose Meter Use as 1 Kit 0 06/10/2019 Active (ONETOUCH ULTRA2 METER) directed KitIndications: Hypogonadism in male lancets (ONE TOUCH Use as 90 Each 1 06/10/2019 Active DELICA) 33 gauge directed MiscIndications: Hypogonadism in male blood sugar diagnostic Use as 90 Strip 3 06/10/2019 Active (ONETOUCH ULTRA BLUE TEST directed STRIP) stripIndications: Hypogonadism in male metFORMIN 500 mg Take 1 tablet 180 tablet 3 06/10/2019 Active tabletIndications: by mouth 2 Hypogonadism in male (two) times daily with meals. documented as of this encounter (statuses as of 06/21/2019) Active Problems Not on filedocumented as of this encounter (statuses as of 06/21/2019) Social History Tobacco Use Types Packs/Day Years Used Date Current Every Day Smoker Cigarettes 12 01 Started: 12/17/1988 Smokeless Tobacco: Never Used Alcohol [...] Visit Endocrinology Diabetes [facility] Met[facility] [address] [place] [address] Dr Gabriel [address] [place] [address] [phone] Health Maintenance Due Date Last Done Comments HEPATITIS C (HCV) SCREEN 1965 PNEUMOCOCCAL 0-64 YEARS COMBINED SERIES (1 of 1 - 1970 PPSV23) DTaP,Tdap,and Td Vaccines (1 - Tdap) 1983 COLONOSCOPY 2014 Zoster Recombinant Vaccine (SHINGRIX) (1 of 2) 2014 INFLUENZA VACCINE (#1) 2019 documented as of this encounter Results Not on filedocumented in this encounter Insurance Payer Benefit Plan / Group Subscriber ID Effective Dates Phone Address Type [employer] [id number] 2018-Present PPO documented as of this encounter
--- OUTSIDE RECORDS SUMMARY | 2019-12-04 15:32 | XMS REPORT ---
:1965 Author Organization [facility] Address [address] [place] [address] Dr. Latham [address] [place] [address] Care Team Providers Name Role Phone Unavailable Unavailable Unavailable Problems This patient has no known problems. Allergies, Adverse Reactions, Alerts This patient has no known allergies or adverse reactions. Medications This patient has no known medications.
--- OUTSIDE RECORDS SUMMARY | 2019-12-04 15:32 | XMS REPORT | Summary of Care ---
:1965 Author Organization [facility] Address [address] [place] [address] Care Team Providers Name Role Phone Frankie Rodriguez Primary Care Provider Reason for Visit Reason Comments Rx Concern/Question Encounter Details Date Type Department Care Team Description 07/14/2019 Telephone [facility] [employer] Toy Renae Rx Concern/Question Endocrinology- [address] [place] [address] [place] [address] [address] [place] [address] Allergies Active Allergy Reactions Severity Noted Date Comments Clindamycin Hives 12/17/2018 Oxycodone-Acetaminophen Other - See comments 12/17/2018 Generalized skin redness and papules on inner hands documented as of this encounter (statuses as of 07/18/2019) Medications Medication Sig Dispensed Refills Start Date [...] as of this encounter (statuses as of 07/18/2019) Active Problems Not on filedocumented as of this encounter (statuses as of 07/18/2019) Social History Tobacco Use Types Packs/Day Years [...] Visit Endocrinology Diabetes & [facility] Metabolism [address] [place] [address] Dr Gabriel [address] [place] [address] [phone] Health Maintenance Due Date Last Done Comments [...] Dates Phone Address Type [employer] [id number] 2018-Present PPO documented as of this encounter
--- OUTSIDE RECORDS SUMMARY | 2019-12-04 15:32 | XMS REPORT | Summary of Care ---
:1965 Author Organization [facility] Address [address] [place] [address] Care Team Providers Name Role Phone Frankie Rodriguez Primary Care Provider Reason for Visit Reason Comments Rx Concern/Question Encounter Details Date Type Department Care Team Description 07/08/2019 Telephone [facility] [employer] Toy Renae Rx Concern/Question Endocrinology- [address] Professional [address] [place] [address] [place] [address] [address] [place] [address] Allergies Active Allergy Reactions Severity Noted Date Comments Clindamycin Hives 12/17/2018 Oxycodone-Acetaminophen Other - See comments 12/17/2018 Generalized skin redness and papules on inner hands documented as of this encounter (statuses as of 07/08/2019) Medications Medication Sig Dispensed Refills Start Date [...] as of this encounter (statuses as of 07/08/2019) Active Problems Not on filedocumented as of this encounter (statuses as of 07/08/2019) Social History Tobacco Use Types Packs/Day Years [...] Visit Endocrinology Diabetes & Toy Renae Metabolism [address] [place] [address] Dr Gabriel [address] [place] [address] [phone] Health Maintenance Due Date Last Done Comments [...] Dates Phone Address Type [employer] [phone] 2018-Present PPO documented as of this encounter
--- OUTSIDE RECORDS SUMMARY | 2019-12-04 15:33 | XMS REPORT | Summary of Care ---
:1965 Author Organization [facility] Address [address] [place] [address] Care Team Providers Name Role Phone Frankie Rodriguez Primary Care Provider Reason for Visit Reason Comments Rx Concern/Question Encounter Details Date Type Department Care Team Description 07/22/2019 Telephone [facility] [employer] Toy Renae Rx Concern/Question Endocrinology- [address] Professional [address] [place] [address] [place] [address] [address] [place] [address] Allergies Active Allergy Reactions Severity Noted Date Comments Clindamycin Hives 12/17/2018 Oxycodone-Acetaminophen Other - See comments 12/17/2018 Generalized skin redness and papules on inner hands documented as of this encounter (statuses as of 07/22/2019) Medications Medication Sig Dispensed Refills Start Date [...] as of this encounter (statuses as of 07/22/2019) Active Problems Not on filedocumented as of this encounter (statuses as of 07/22/2019) Social History Tobacco Use Types Packs/Day Years [...] Visit Endocrinology Diabetes & [facility] Renae Metabolism [address] [place] [address] Dr Gabriel [address] [place] [address] [phone] Health Maintenance Due Date Last Done Comments [...] Dates Phone Address Type [employer] [phone] 2018-Present PPO documented as of this encounter
--- NOTE | 2019-12-04 16:19 | ER ---
Nurse's Notes [facility] Name: Jose Francisco Machado Age: 54 yrs Sex: Male : 1965 Arrival Date: 12/04/2019 Time: 15:33 Bed 26 Private MD: Diagnosis: Finger Laceration Presentation: 12/04 15:34 Presenting complaint: Patient states: He was cutting onions and he accidentally cut his aj1 left middle finger. Transition of care: patient was not received from another setting of care. Onset of symptoms was December 04, 2019. Risk Assessment: Do you want to hurt yourself or someone else? Patient reports no desire to harm self or others. Initial Sepsis Screen: Does the patient meet any 2 criteria? No. Patient's initial sepsis screen is negative. Does the patient have a suspected source of infection? No. Patient's initial sepsis screen is negative. Care prior to arrival: None. 15:34 Method Of Arrival: Ambulatory aj1 15:34 Acuity: SUSI 4 aj1 Triage Assessment: 15:38 General: Appears in no apparent distress. comfortable, Behavior is calm, cooperative, aj1 appropriate for age. Pain: Complains of pain in palmar aspect of distal phalanx of left middle finger. Neuro: Level of Consciousness is awake, alert, obeys commands. Cardiovascular: Patient's skin is warm and dry. Respiratory: Airway is patent Respiratory effort is even, unlabored, Respiratory pattern is regular, symmetrical. Historical: - Allergies: 15:38 Cipro; aj1 15:38 Clindamycin; aj1 15:38 Percocet; aj1 15:38 Vicodin (rash); aj1 - Home Meds: 15:38 Xarelto 20 mg oral tab 1 tab once daily [Active]; propafenone 225 mg Oral tab 1 tab aj1 every 8 hours [Active]; Hydrochlorothiazide Oral [Active]; valsartan oral oral [Active]; metformin 500 mg Oral tr24 1 tab once daily [Active]; - PMHx: 15:38 Diabetes - NIDDM; Hypertension; Atrial Fib; aj1 - Immunization history:: Flu vaccine is up to date. - Coronavirus screen:: The patient has NOT traveled to [place], [place], or [place] in the past 14 days. - Social history:: Smoking status: Patient/guardian denies using tobacco. - Ebola Screening: : Patient denies travel to an Ebola-affected area in the 21 days before illness onset. Screenin:55 Abuse screen: Denies threats or abuse. Denies injuries from another. Nutritional mg2 screening: No deficits noted. Tuberculosis screening: No symptoms or risk factors identified. Fall Risk None identified. Assessment: 15:56 General: Appears in no apparent distress. comfortable, Behavior is calm, cooperative. mg2 Pain: Complains of pain in left middle finger. Neuro: Level of Consciousness is awake, alert, obeys commands, Oriented to person, place, time, situation. Cardiovascular: Capillary refill < 3 seconds Patient's skin is warm and dry. Respiratory: Airway is patent Respiratory effort is even, unlabored, Respiratory pattern is regular, symmetrical. GI: No signs and/or symptoms were reported involving the gastrointestinal system. : No signs and/or symptoms were reported regarding the genitourinary system. EENT: No signs and/or symptoms were reported regarding the EENT system. Derm: Wound noted left middle finger. Musculoskeletal: Circulation, motion, and sensation intact. Capillary refill < 3 seconds. Injury Description: Laceration sustained to left middle finger. Vital Signs: 15:38 BP 142 / 91; Pulse 79; Resp 18; Temp 98.6; Pulse Ox 100% on R/A; Weight 127.01 kg (R); aj1 Height 6 ft. 2 in. (187.96 cm) (R); Pain 3/10; 16:32 BP 135 / 78; Pulse 80; Resp 18; Temp 98; Pulse Ox 100% on R/A; mg2 15:38 Body Mass Index 35.95 (127.01 kg, 187.96 cm) aj1 ED Course: 15:33 Patient arrived in ED. mr 15:36 Triage completed. aj1 15:38 Arm band placed on Patient placed in an exam room. aj1 15:41 Mike Cuellar PA is PHCP. [facility] 15:41 Mckinley Rasmussen MD is Attending Physician. [facility] 15:47 Venancio Bennett, MERCEDES is Primary Nurse. mg2 15:55 Patient did not have IV access during this emergency room visit. mg2 15:56 Patient has correct armband on for positive identification. mg2 16:31 Assist provider with laceration repair on left middle finger that was 2.5 cm. or less mg2 using sutures. Set up tray. Performed by Mike Cuellar PA Dressed with 4X4s, Patient tolerated well. Administered Medications: No medications were administered Outcome: 16:18 Discharge ordered by . trevor 16:32 Discharged to home ambulatory, with family. mg2 16:32 Condition: stable 16:32 Discharge instructions given to patient, family, Instructed on discharge instructions, follow up and referral plans. wound care, Demonstrated understanding of instructions, follow-up care, wound care. 16:33 Patient left the ED. mg2 Signatures: Cinthya Bolivar, RN RN aj1 Mike Cuellar PA PA jmm Rivera, Mary mr Venancio Bennett RN RN mg2
--- NOTE | 2019-12-04 16:19 | EDPHYS ---
Physician Documentation [facility] Name: Jose Francisco Machado Age: 54 yrs Sex: Male : 1965 Arrival Date: 12/04/2019 Time: 15:33 Bed 26 Private MD: ED Physician Mckinley Rasmussen HPI: 12/04 15:59 This 54 yrs old Male presents to ER via Ambulatory with complaints of Finger jmm laceration. 15:59 The patient or guardian reports injury, a laceration. Onset: The symptoms/episode jmm began/occurred acutely, just prior to arrival. Modifying factors: The symptoms are alleviated by nothing, the symptoms are aggravated by nothing. Associated signs and symptoms: Pertinent negatives: fever. This is a 54 year old male with a history of DM, HTN, a fib that presents to the ED with a laceration which occurred just prior to arrival while cutting an onion. Patient is UTD on tetanus immunizations. . Historical: - Allergies: 15:38 Cipro; aj1 15:38 Clindamycin; aj1 15:38 Percocet; aj1 15:38 Vicodin (rash); aj1 - Home Meds: 15:38 Xarelto 20 mg oral tab 1 tab once daily [Active]; propafenone 225 mg Oral tab 1 tab aj1 every 8 hours [Active]; Hydrochlorothiazide Oral [Active]; valsartan oral oral [Active]; metformin 500 mg Oral tr24 1 tab once daily [Active]; - PMHx: 15:38 Diabetes - NIDDM; Hypertension; Atrial Fib; aj1 - Immunization history:: Flu vaccine is up to date. - Coronavirus screen:: The patient has NOT traveled to [place], [place], or [place] in the past 14 days. - Social history:: Smoking status: Patient/guardian denies using tobacco. - Ebola Screening: : Patient denies travel to an Ebola-affected area in the 21 days before illness onset. ROS: 15:59 Constitutional: Negative for fever, chills, and weight loss, Cardiovascular: Negative jmm for chest pain, palpitations, and edema, Respiratory: Negative for shortness of breath, cough, wheezing, and pleuritic chest pain. 15:59 Skin: Positive for laceration(s). 15:59 All other systems are negative. Exam: 15:59 Head/Face: atraumatic. Eyes: EOMI, no conjunctival erythema appreciated ENT: Moist jmm Mucus Membranes Neck: Trachea midline, Supple Chest/axilla: Normal chest wall appearance and motion. Cardiovascular: Regular rate and rhythm. No edema appreciated Respiratory: Normal respirations, no respiratory distress appreciated Abdomen/GI: Non distended, soft Back: Normal ROM 15:59 Constitutional: The patient appears in no acute distress, alert, awake. 15:59 Musculoskeletal/extremity: FROM appreciated to the left 3rd finger. 15:59 Skin: small laceration noted to the left distal finger. < 2 sec dist cap refill. . 15:59 Neuro: Orientation: is normal, Mentation: is normal, Memory: is normal. 15:59 Psych: Behavior/mood is pleasant, cooperative. Vital Signs: 15:38 BP 142 / 91; Pulse 79; Resp 18; Temp 98.6; Pulse Ox 100% on R/A; Weight 127.01 kg (R); aj1 Height 6 ft. 2 in. (187.96 cm) (R); Pain 3/10; 16:32 BP 135 / 78; Pulse 80; Resp 18; Temp 98; Pulse Ox 100% on R/A; mg2 15:38 Body Mass Index 35.95 (127.01 kg, 187.96 cm) aj1 Laceration: 16:17 Wound Repair of .5cm ( 0.2in ) subcutaneous laceration to palmar aspect of distal jmm phalanx of left middle finger. Distal neuro/vascular/tendon intact. Anesthesia: Digital block administered with 3 mls of 0.5% marcaine. Wound prep: Simple cleansing with betadine by hi. Skin closed with 2 5-0 Prolene using simple sutures and sterile technique. Patient tolerated well. MDM: 15:42 Patient medically screened. shira 16:17 Data reviewed: vital signs, nurses notes. Counseling: I had a detailed discussion with lukasz the patient and/or guardian regarding: the historical points, exam findings, and any diagnostic results supporting the discharge/admit diagnosis, the need for outpatient follow up, to return to the emergency department if symptoms worsen or persist or if there are any questions or concerns that arise at home. ED course: Patient advised to follow up with pcp for reevaluation. Patient is otherwise given wound infection return precautions. Patient understood and agrees with the plan of care. . Administered Medications: No medications were administered Disposition: 12/05 07:44 Co-signature as Attending Physician, Mckinley Rasmussen MD I agree with the assessment and shira plan of care. Disposition: 12/04/19 16:18 Discharged to Home. Impression: Finger Laceration. - Condition is Stable. - Discharge Instructions: Laceration Care, Adult. - Medication Reconciliation Form, Thank You Letter, Antibiotic Education, Prescription Opioid Use, Work release form form. - Follow up: Private Physician; When: 1 week; Reason: Recheck today's complaints, Staple/Suture removal, Re-evaluation by your physician. Signatures: Cinthya Bolivar RN RN ajMckinley Conner MD MD cha Mickail, Joel, PA PA Venancio Whitley RN RN mg2 Corrections: (The following items were deleted from the chart) 12/04 16:33 16:18 12/04/2019 16:18 Discharged to Home. Impression: Finger Laceration. Condition is mg2 Stable. Forms are Medication Reconciliation Form, Thank You Letter, Antibiotic Education, Prescription Opioid Use. Follow up: Private Physician; When: 1 week; Reason: Recheck today's complaints, Staple/Suture removal, Re-evaluation by your physician. trevor
[2019-12-04 17:01] VITALS: O2SAT 100
[2019-12-04 17:02] VITALS: BP 135/78; TEMP 98
== END 2019-12-04 16:33 | disposition home or self-care (01) ==
LOC: ER 15:30
PROC: 0JQK0ZZ Repair Left Hand Subcutaneous Tissue and Fascia, Open Approach (ICD-10-PCS; principal; 2019-12-04)
DX: S61.213A Laceration without foreign body of left middle finger without damage to nail, initial encounter (principal); W26.0XXA Contact with knife, initial encounter; Y93.G1 Activity, food preparation and clean up; Y92.9 Unspecified place or not applicable; I10 Essential (primary) hypertension; I48.91 Unspecified atrial fibrillation; E11.9 Type 2 diabetes mellitus without complications; Z79.01 Long term (current) use of anticoagulants; Z88.1 Allergy status to other antibiotic agents; Z88.3 Allergy status to other anti-infective agents; Z88.5 Allergy status to narcotic agent
CPT/HCPCS: 99283

== ENCOUNTER 2020-03-10 19:09 | Observation (INO) | payer OTHER ==
--- OUTSIDE RECORDS SUMMARY | 2020-03-10 19:10 | XMS REPORT ---
:1965 Author Organization [facility] Address [address] [place] [address] Dr. Latham [address] [place] [address] Care Team Providers Name Role Phone Unavailable Unavailable Unavailable Problems This patient has no known problems. Allergies, Adverse Reactions, Alerts This patient has no known allergies or adverse reactions. Medications This patient has no known medications.
--- OUTSIDE RECORDS SUMMARY | 2020-03-10 19:12 | XMS REPORT | Summary of Care ---
:1965 Author Organization [facility] Address [address] [place] [address] Care Team Providers Name Role Phone Frankie Rodriguez Primary Care Provider Reason for Visit Reason Comments Follow-up Encounter Details Date Type Department Care Team Description 02/03/2020 Telemedicine Visit [facility] [employer] Hypogo nadism in male (Primary Dx); Endocrinology- [facility] Prediabetes [address] [place] [address] [place], [place] [address] [address] [place], [place] [phone] [address] Allergies Active Allergy Reactions Severity Noted Date Comments Ciprofloxacin Rash High 07/30/2018 Clindamycin Hives 12/17/2018 Oxycodone-Acetaminophen Other - See comments 9 Generalized skin redness and pap ules on inner hands documented as of this encounter (statuses as of 03/04/2020) Medications Medication Sig Dispensed Refills Start End Status Date Date hydroCHLOROthiazide Take 12.5 mg 0 Active 12.5 mg capsule by mouth daily. meloxicam 15 mg tablet Take 15 mg 0 Active by mouth daily. aspirin 81 mg chewable Take 81 mg 0 Active tablet by mouth daily. cyclobenzaprine HCl Take by 0 Active (FLEXERIL ORAL) mouth 3 (three) times daily as needed. rivaroxaban (XARELTO Take by 0 Active ORAL) mouth. testosterone (ANDROGEL) Apply 2 Pump 75 g 3 Active 20.25 mg/1.25 gram to area(s) 9 (1.62 %) gel daily. pumpIndications: Hypogonadism in male ACCU-CHEK GUIDE strip Use to check 100 Strip 1 Active blood sugar 9 daily. ACCU-CHEK FASTCLIX Use to check 100 Each 1 Active LANCET DRUM Misc blood sugar 9 daily. valsartan 160 mg tablet Take 160 mg 0 Active by mouth 0 daily. propafenone 325 mg 12 TAKE 1 0 Active hr capsule CAPSULE BY 0 MOUTH EVERY 12 HOURS doxycycline hyclate 100 TAKE 1 TAB 0 Active mg tablet BY MOUTH 0 DAILY WITH FOOD. TAKE 2HOURS BEFORE OR AFTER VITAMIN SUPPLEMENTS. metFORMIN 500 mg Take 1 180 tablet 3 Ac tive tabletIndications: tablet by 0 Hypogonadism in male mouth 2 (two) times daily with meals. losartan 25 mg tablet Take 25 mg 0 Discontinued by mouth 020 (Alternate daily. therapy) Blood-Glucose Meter Use as 1 Kit 0 Discontinued ([employer]TOUCH ULTRA2 METER) directed 9 020 (Error) KitIndications: Hypogonadism in male lancets (ONE TOUCH Use as 90 Each 1 D iscontinued DELICA) 33 gauge directed 9 020 (Er ror) MiscIndications: Hypogonadism in male blood sugar diagnostic Use as 90 Strip 3 Discontinued (ONETOUCH ULTRA BLUE directed 9 020 (Error) TEST STRIP) stripIndications: Hypogonadism in male metFORMIN 500 mg Take 1 180 tablet 3 Di scontinued tabletIndications: tablet by 9 020 ( Reorder) Hypogonadism in male mouth 2 (two) times daily with meals. documented as of this encounter (statuses as of 03/04/2020) Active Problems Not on filedocumented as of this encounter (statuses as of 03/04/2020) Immunizations Name Administration Dates Next Due Zoster Vaccine Recombinant 01/28/2019 documented as of this encounter Social History Tobacco Use Types Packs/Day Years Used Date Current Every Day Smoker Cigarettes 1 30 Sta rted: 12/17/1988 Smokeless Tobacco: Never Used Alcohol Use Drinks/Week oz/Week Comments Yes 6 Cans of beer 6.0 Sex Assigned at Date Recorded Not on file Job Start Date Occupation Industry Not on file Not on file Not on file Travel History Travel Start Travel End No recent travel history available. documented as of this encounter Last Filed Vital Signs Not on filedocumented in this encounter Patient Instructions Patient InstructionsToy Renae MD - 02/03/2020 9:30 AM CDT Continue metformin for your diabetes. No change in dosage Continue to watch what you eat and try to get some walking in on days off. Let me know if you decide to restart the testosterone after your heart procedure. documented in this encounter Progress Notes Toy Renae MD - 02/03/2020 9:30 AM CDT Chief Complaint Patient presents with Follow-up HPI Patient is a 54 year old man who is here today for f/u on hypogonadism and diabetes. He is off of Androgel due to Afib that's uncontrolled. He is referred to a cardiophysicist for ablation. BG averages 90 day is 155, 30 day is 157. Checks once daily in the AM, no hypoglycaemia. Prediabetes: has been fairly controlled with metformin [...] and Sexual Activity Alcohol use: Yes Alcohol/week: 6.0 standard drinks Types: 6 Cans of beer per week Drug use: Not on file Sexual activity: Not on file Lifestyle Physical activity: Days per week: Not on file Minutes per session: Not on file Stress: Not on file Relationships Social connections: Talks on phone: Not on file Gets together: Not on file Attends confucianist service: Not on file Active member of [...] abdominal pain, denies constipation and denies diarrhea. Musculoskeletal: denies back pain, denies muscle pain and denies weakness. Neuro: denies numbness , denies tingling and denies tremor. Endocrine: denies goiter, denies hair loss, denies intolerance to cold, denies intolerance to heat, denies polydipsia, denies polyphagia and denies polyuria. PHYSICAL EXAM There were no vitals taken for this visit. No exam--telemedicine Outside labs 12/2018 Testosterone =249 A1C =5.9 Component Latest Ref Rng & Units 02/04/2019 [...] ICD-9-CM 1. Hypogonadism in male E29.1 257.2 2. Prediabetes R73.03 790.29 Continue metformin for diabetes Emphasized lifestyle modifications. Consider restarting Androgel after ablation. documented in this encounter Plan of Treatment Date Type Specialty Care Team Description 08/10/2020 Office Visit Endocrinology Diabetes & Toy Fenton MD Metabolism [address] [place] [address] [phone] Health Maintenance Due Date Last Done Comments HEPATITIS C (HCV) SCREEN 1965 DTaP,Tdap,and Td Vaccines (1 - 1975 Tdap) COLONOSCOPY 2014 Zoster Recombinant Vaccine 03/25/2019 01/28/2019 (SHINGRIX) (2 of 2) LUNG CANCER SCREEN: Recommended 2019 for age 55-80 with 30 + pack year history INFLUENZA VACCINE (Season Ended) 2020 PNEUMOCOCCAL 0-64 YEARS COMBINED Aged Out No longer eligible based on SERIES patient's age to complete this topic documented as of this encounter Results Not on filedocumented in this encounter Visit Diagnoses Diagnosis Hypogonadism in male - Primary Prediabetes Other abnormal glucose documented in this encounter documented as of this encounter
[2020-03-10] MEDS ORDERED: NA CHLORIDE 0.9% 1,000 ML ONE ×2 (19:55→21:23)
[2020-03-10] MEDS ORDERED: ACETAMINOPHEN 500 MG TAB ONE (19:55)
[2020-03-10 20:37] LABS: Absolute Lymphocytes (CBC) 1.6 K/uL (0.7-4.9); Basophils % 0.4 % (0-1.3); Hematocrit 43.2 % (39.6-49.0); Lymphocytes % 8.8 % (15.3-44.8); MPV 9.7 fL (7.6-11.3); RBC Red Blood Cell Count 4.83 M/uL (4.33-5.43)
[2020-03-10 20:43] LABS: Protime INR 0.98
--- NOTE | 2020-03-10 21:05 | RAD REPORT ---
EXAM DESCRIPTION: RAD - Chest Single View - 03/10/2020 8:23 pm CLINICAL HISTORY: FEVER COMPARISON: May 2019 TECHNIQUE: AP portable chest image was obtained 03/10/2020 8:23 pm . FINDINGS: Lungs are clear. Heart and vasculature are normal. No measurable pleural effusion and no p neumothorax. No acute bony abnormality seen. No acute aortic findings suspected. IMPRESSION: No acute cardiopulmonary process. No suspicious interval change.
[2020-03-10 21:06] LABS: ALT/SGPT 36 U/L (12-78); Albumin 3.7 g/dL (3.4-5.0); Alkaline Phosphatase 82 U/L (45-117); Amylase 48 U/L (25-115); BUN Blood Urea Nitrogen 21 mg/dL (7-18); Bicarbonate 26 mmol/L (21-32); Bilirubin Direct 0.1 mg/dL (0-0.2); Bilirubin Total 0.4 mg/dL (0.2-1.0); CKMB Creatine Kinase MB < 1.0 ng/mL (0.3-3.6); Creatine Phosphokinase 115 U/L (39-308); Glucose Level 186 mg/dL (74-106); Lipase 63 U/L (73-393); Sodium Level 134 mmol/L (136-145); Troponin (Emerg Dept Use Only) < 0.02 ng/mL (0.0-0.045)
[2020-03-10 21:07] LABS: AST/SGOT 11 U/L (15-37); Potassium 3.7 mmol/L (3.5-5.1)
[2020-03-10 21:15] LABS: Urine Appearance CLOUDY; Urine Bilirubin NEGATIVE (NEG); Urine Blood NEGATIVE (NEG); Urine Color YELLOW; Urine Glucose NEGATIVE (NEG); Urine Protein 1+ (NEG); Urine Specific Gravity >=1.030 (1.005-1.030); Urine Urobilinogen 0.2 mg/dL (0.2-1.0)
[2020-03-10] MEDS ORDERED: PIPER/TAZO/NS 3.375gm 3.375 GM/100 ML BAG ONE (21:23)
[2020-03-10 21:40] LABS: Urine Microscopic Reflex ORDER UMIC
[2020-03-10 21:44] LABS: Urine Bacteria LOADED /HPF (NONE SEEN); Urine Culture Reflex Order NOT NEEDED; Urine RBC NONE SEEN /HPF (NONE SEEN)
--- NOTE | 2020-03-11 00:45 | ER ---
Nurse's Notes [facility] Name: Jose Francisco Machado Age: 54 yrs Sex: Male : 1965 Arrival Date: 03/10/2020 Time: 19:12 Bed 18 Private MD: Diagnosis: Fever, unspecified;Urinary tract infection, site not specified Presentation: 03/10 19:17 Chief complaint: Patient states: Fever 102 today at home. On oral steroids and had ll1 steroid shot for back pain since Thursday. No N/V/D. No cough. Coronavirus screen: Proceed with normal triage. Patient denies a cough. Patient denies shortness of breath or difficulty breathing. Patient reports a measured and/or subjective temperature greater than 100.4F. Patient denies travel on a cruise ship or to a country the [facility] currently lists as an affected area. Patient denies contact with known and/or suspected case of COVID-19. Ebola Screen: Patient denies travel to an Ebola-affected area in the 21 days before illness onset. Initial Sepsis Screen: Does the patient meet any 2 criteria? Temp <36.0*C (96.8*F)) or > 38.3*C (100.9*F). HR > 90 bpm. Yes Does the patient have a suspected source of infection? No. Patient's initial sepsis screen is negative. Risk Assessment: Do you want to hurt yourself or someone else? Patient reports no desire to harm self or others. Onset of symptoms was March 10, 2020. 19:17 Method Of Arrival: Ambulatory ll1 19:17 Acuity: SUSI 3 ll1 Historical: - Allergies: 19:17 Cipro; ll1 19:17 Percocet; ll1 19:17 Vicodin (rash); ll1 19:17 Clindamycin; ll1 - PMHx: 19:17 Atrial Fib; Diabetes - NIDDM; Hypertension; ll1 - Social history:: Patient/guardian denies using alcohol, street drugs, tobacco products. Screenin:13 Abuse screen: Denies threats or abuse. Nutritional screening: No deficits noted. Tuberculosis screening: No symptoms or risk factors identified. Fall Risk None identified. Assessment: 20:30 General: Appears in no apparent distress. Behavior is calm, cooperative, Reports fever ah for 0-12 hours. Pain: Denies pain. Neuro: Level of Consciousness is awake, alert, Oriented to person, place, time, situation. Cardiovascular: Rhythm is sinus tachycardia. Respiratory: Airway is patent Respiratory effort is even, unlabored, Respiratory pattern is regular, symmetrical, Denies cough, shortness of breath. GI: Abdomen is round Reports abdominal pain for aprox 5 hours earlier today, but subsided prior to coming to ER Patient currently denies vomiting. : No signs and/or symptoms were reported regarding the genitourinary system. EENT: No signs and/or symptoms were reported regarding the EENT system. Derm: No signs and/or symptoms reported regarding the dermatologic system. Musculoskeletal: No signs and/or symptoms reported regarding the musculoskeletal system. 21:30 Reassessment: IV ABX running. Pt lying in bed awaiting results. No needs voiced at this ah time. 22:00 Reassessment: Patient appears in no apparent distress at this time. Patient and/or vc family updated on plan of care and expected duration. Pain level reassessed. Patient is alert, oriented x 3, equal unlabored respirations, skin warm/dry/pink. 23:00 Reassessment: Patient appears in no apparent distress at this time. Patient and/or vc family updated on plan of care and expected duration. Pain level reassessed. Patient states symptoms have improved. 03/11 00:00 Reassessment: Patient appears in no apparent distress at this time. Patient and/or vc family updated on plan of care and expected duration. Pain level reassessed. Patient is alert, oriented x 3, equal unlabored respirations, skin warm/dry/pink. Patient denies pain at this time. Patient states feeling better. Patient states symptoms have improved. 01:18 Reassessment: Patient appears in no apparent distress at this time. Patient and/or vc family updated on plan of care and expected duration. Pain level reassessed. Patient is alert, oriented x 3, equal unlabored respirations, skin warm/dry/pink. Provider at bedside. No needs or requests at this time. Patient states feeling better. Patient states symptoms have improved. 02:00 Reassessment: Patient appears in no apparent distress at this time. Patient and/or vc family updated on plan of care and expected duration. Pain level reassessed. Patient is alert, oriented x 3, equal unlabored respirations, skin warm/dry/pink. Patient states feeling better. Patient states symptoms have improved. Vital Signs: 03/10 19:17 BP 147 / 89; Pulse 102; Resp 19; Temp 102.5; Pulse Ox 95% ; Pain 5/10; ll1 21:05 BP 135 / 84; Pulse 120; Resp 15; Temp 100.0; Pulse Ox 96% ; ah 21:45 BP 114 / 74; Pulse 119; Resp 19; Pulse Ox 97% on R/A; vc 22:30 BP 123 / 72; Pulse 110; Resp 20; Pulse Ox 96% on R/A; vc 23:15 BP 144 / 82; Pulse 111; Resp 16; Pulse Ox 95% on R/A; vc 03/11 00:00 BP 112 / 67; Pulse 105; Resp 19; Pulse Ox 95% on R/A; vc 00:45 BP 104 / 61; Pulse 96; Resp 18; Pulse Ox 96% on R/A; vc ED Course: 03/10 19:12 Patient arrived in ED. cl3 19:19 Triage completed. ll1 19:19 Arm band placed on Patient placed in an exam room, on a stretcher. ll1 19:27 [facility]C [facility] snw 19:27 Hong Castelan MD is Attending Physician. snw 19:46 Kadie Flanagan, RN is Primary Nurse. ah 20:24 CXR XRAY In Process Unspecified. EDMS 21:13 Patient has correct armband on for positive identification. Placed in gown. Bed in low ah position. Call light in reach. Side rails up X 1. youth nutritional monitor on. Pulse ox on. NIBP on. 21:35 Urine Culture Sent. ah 22:00 Report received from Kadie Flanagan RN. vc 22:49 Primary Nurse role handed off by Kadie Flanagan, RN vc 22:49 Jennie Ochoa, MERCEDES is Primary Nurse. vc 23:04 CT Abd/Pelvis - IV Contrast Only In Process Unspecified. EDMS 03/11 00:42 Keaton Dowd MD is Hospitalizing Provider. snw 01:15 No provider procedures requiring assistance completed. Patient admitted, IV remains in vc place. Administered Medications: 03/10 20:00 Drug: NS 0.9% 1000 ml Route: IV; Rate: 1 bolus; Site: right antecubital; ah 22:00 Follow up: IV Status: Completed infusion; IV Intake: 1000ml vc 21:34 Drug: NS 0.9% 1000 ml Route: IV; Rate: 1 bolus; Site: right wrist; 22:34 Follow up: IV Status: Completed infusion; IV Intake: 1000ml vc 21:34 Drug: Zosyn 3.375 grams Route: IVPB; Infused Over: 60 mins; Site: right wrist; 22:34 Follow up: IV Status: Completed infusion; IV Intake: 50ml vc Intake: 22:00 IV: 1000ml; Total: 1000ml. vc 22:34 IV: 50ml; Total: 1050ml. vc 22:34 IV: 1000ml; Total: 2050ml. vc Outcome: 03/11 00:44 Decision to Hospitalize by Provider. snw 01:15 Condition: good vc 02:00 Admitted to Med/surg accompanied by tech, via wheelchair, room 224, Report called to vc Nina RN 02:00 Instructed on the need for admit. vc 02:10 Patient left the ED. Signatures: Dispatcher [employer] EDBeverly Epperson, REGISTRAR MUSEUM-C REGISTRAR MUSEUM-Jake Dumont cl3 Jennie Ochoa RN RN Kadie Nicholson RN Neftali Arzola RN RN ll1
--- NOTE | 2020-03-11 00:45 | EDPHYS ---
Physician Documentation [facility] Name: Jose Francisco Machado Age: 54 yrs Sex: Male : 1965 Arrival Date: 03/10/2020 Time: 19:12 Bed 18 Private MD: ED Physician Hong Castelan HPI: 03/10 20:28 This 54 yrs old Male presents to ER via Ambulatory with complaints of Fever. snw 20:28 The patient reports fever, that was measured at 103 degrees Fahrenheit. Onset: The snw symptoms/episode began/occurred suddenly, and became persistent. Associated signs and symptoms: Pertinent positives: abdominal pain, backache, chills. Severity of symptoms: At their worst the symptoms were moderate severe. The patient has not experienced similar symptoms in the past. recent steroid injection for back pain. Historical: - Allergies: 19:17 Cipro; ll1 19:17 Percocet; ll1 19:17 Vicodin (rash); ll1 19:17 Clindamycin; ll1 - PMHx: 19:17 Atrial Fib; Diabetes - NIDDM; Hypertension; ll1 - Social history:: Patient/guardian denies using alcohol, street drugs, tobacco products. ROS: 20:26 Eyes: Negative for injury, pain, redness, and discharge, ENT: Negative for injury, snw pain, and discharge, Neck: Negative for injury, pain, and swelling, Cardiovascular: Negative for chest pain, palpitations, and edema, Respiratory: Negative for shortness of breath, cough, wheezing, and pleuritic chest pain. 20:26 Back: Negative for injury and pain, : Negative for injury, bleeding, discharge, and swelling, MS/Extremity: Negative for injury and deformity, Skin: Negative for injury, rash, and discoloration, Neuro: Negative for headache, weakness, numbness, tingling, and seizure. 20:26 Constitutional: Positive for body aches, fever, malaise. 20:26 Abdomen/GI: Positive for abdominal cramps, abdominal distension. Exam: 20:26 Head/Face: Normocephalic, atraumatic. Eyes: Pupils equal round and reactive to light, snw extra-ocular motions intact. Lids and lashes normal. Conjunctiva and sclera are non-icteric and not injected. Cornea within normal limits. Periorbital areas with no swelling, redness, or edema. ENT: Nares patent. No nasal discharge, no septal abnormalities noted. Tympanic membranes are normal and external auditory canals are clear. Oropharynx with no redness, swelling, or masses, exudates, or evidence of obstruction, uvula midline. Mucous membranes moist. Neck: Trachea midline, no thyromegaly or masses palpated, and no cervical lymphadenopathy. Supple, full range of motion without nuchal rigidity, or vertebral point tenderness. No Meningismus. Chest/axilla: Normal chest wall appearance and motion. Nontender with no deformity. No lesions are appreciated. 20:26 Respiratory: Lungs have equal breath sounds bilaterally, clear to auscultation and percussion. No rales, rhonchi or wheezes noted. No increased work of breathing, no retractions or nasal flaring. Abdomen/GI: Soft, non-tender, with normal bowel sounds. No distension or tympany. No guarding or rebound. No evidence of tenderness throughout. Back: No spinal tenderness. No costovertebral tenderness. Full range of motion. Skin: Warm, dry with normal turgor. Normal color with no rashes, no lesions, and no evidence of cellulitis. MS/ Extremity: Pulses equal, no cyanosis. Neurovascular intact. Full, normal range of motion. Neuro: Awake and alert, GCS 15, oriented to person, place, time, and situation. Cranial nerves II-XII grossly intact. Motor strength 5/5 in all extremities. Sensory grossly intact. Cerebellar exam normal. Normal gait. Psych: Awake, alert, with orientation to person, place and time. Behavior, mood, and affect are within normal limits. 20:26 Constitutional: The patient appears alert, awake, febrile, obese. 20:26 Cardiovascular: Rate: tachycardic, Rhythm: irregularly irregular. Vital Signs: 19:17 BP 147 / 89; Pulse 102; Resp 19; Temp 102.5; Pulse Ox 95% ; Pain 5/10; ll1 21:05 BP 135 / 84; Pulse 120; Resp 15; Temp 100.0; Pulse Ox 96% ; ah 21:45 BP 114 / 74; Pulse 119; Resp 19; Pulse Ox 97% on R/A; vc 22:30 BP 123 / 72; Pulse 110; Resp 20; Pulse Ox 96% on R/A; vc 23:15 BP 144 / 82; Pulse 111; Resp 16; Pulse Ox 95% on R/A; vc 03/11 00:00 BP 112 / 67; Pulse 105; Resp 19; Pulse Ox 95% on R/A; vc 00:45 BP 104 / 61; Pulse 96; Resp 18; Pulse Ox 96% on R/A; vc MDM: 03/10 19:37 Patient medically screened. snw 22:17 Data reviewed: vital signs, nurses notes. Data interpreted: Pulse oximetry: on room air snw is 96 %. Interpretation: acceptable. Counseling: I had a detailed discussion with the patient and/or guardian regarding: the historical points, exam findings, and any diagnostic results supporting the discharge/admit diagnosis, the presence of at least one elevated blood pressure reading (>120/80) during this emergency department visit, lab results, radiology results, the need for further work-up and treatment in the hospital. 03/11 00:44 Physician consultation: Keaton Dowd MD was called at 00:45, was contacted at 00:45, snw regarding admission, to the telemetry unit. 00:57 ED course: Covid19 negative. snw 03/10 19:32 Order name: COVID-19 snw 03/10 19:32 Order name: Flu; Complete Time: 20:55 snw 03/10 19:32 Order name: Strep; Complete Time: 20:48 snw 03/10 19:32 Order name: D-Dimer; Complete Time: 20:48 snw 03/10 19:32 Order name: T\T\S; Complete Time: 21:03 snw 03/10 19:32 Order name: Amylase, Serum; Complete Time: 21:09 snw 03/10 19:32 Order name: Basic Metabolic Panel; Complete Time: 21:09 snw 03/10 19:32 Order name: Blood Culture Adult (2) snw 03/10 19:32 Order name: CBC with Diff; Complete Time: 20:48 snw 03/10 19:32 Order name: Ckmb; Complete Time: 21:09 snw 03/10 19:32 Order name: CPK; Complete Time: 21:09 snw 03/10 19:32 Order name: Lactate; Complete Time: 21:07 snw 03/10 19:32 Order name: LFT's; Complete Time: 21:09 snw 03/10 19:32 Order name: Lipase; Complete Time: 21:09 snw 03/10 19:32 Order name: Procalcitonin; Complete Time: 21:47 snw 03/10 19:32 Order name: Protime (+inr); Complete Time: 20:48 snw 03/10 19:32 Order name: Ptt, Activated; Complete Time: 20:48 snw 03/10 19:32 Order name: Troponin (emerg Dept Use Only); Complete Time: 21:09 snw 03/10 19:32 Order name: Ferritin; Complete Time: 21:09 snw 03/10 19:32 Order name: CORONAVIRUS; Complete Time: 01:30 EDMS 03/10 20:30 Order name: Urine Culture [facility] 03/10 20:30 Order name: Urine Culture [facility] 03/10 20:44 Order name: Throat Culture [facility] 03/10 20:46 Order name: Urinalysis; Complete Time: 21:47 lp1 03/10 21:04 Order name: ABO/RH no charge; Complete Time: 21:05 EDME 03/10 21:43 Order name: Urine Microscopic Only; Complete Time: 21:47 EDME 03/11 01:16 Order name: Lactate [facility] 03/11 01:16 Order name: Procalcitonin [facility] 03/11 01:16 Order name: Basic Metabolic Panel [facility] 03/10 19:32 Order name: CXR XRAY; Complete Time: 21:06 snw 03/10 19:32 Order name: Droplet/Contact Precautions; Complete Time: 20:54 snw 03/10 19:32 Order name: Labs collected and sent; Complete Time: 20:54 snw 03/10 19:32 Order name: O2 Per Protocol; Complete Time: 20:54 snw 03/10 19:32 Order name: Accucheck; Complete Time: 01:26 snw 03/10 19:32 Order name: Cardiac monitoring; Complete Time: 21:15 snw 03/10 19:32 Order name: EKG - Nurse/Tech; Complete Time: 21:15 snw 03/10 19:32 Order name: IV Saline Lock - Large Bore; Complete Time: 21:15 snw 03/10 19:32 Order name: O2 Sat Monitoring; Complete Time: 21:15 snw 03/10 19:32 Order name: Urine Dipstick-Ancillary (obtain specimen); Complete Time: 22:03 snw 03/10 21:07 Order name: CT Abd/Pelvis - IV Contrast Only snw 03/11 01:15 Order name: CONS Pharmacy Consult EDMS 03/11 01:15 Order name: Regular EDMS 03/11 01:17 Order name: Basic Metabolic Panel EDMS 03/11 01:17 Order name: CBC with Automated Diff EDMS 03/11 01:17 Order name: CBC with Automated Diff EDMS 03/11 01:17 Order name: Lipase EDMS 03/11 01:17 Order name: Lipase EDMS 03/11 01:17 Order name: Magnesium EDMS 03/11 01:17 Order name: Magnesium EDMS 03/11 01:17 Order name: NT PRO-BNP EDMS Administered Medications: 03/10 20:00 Drug: NS 0.9% 1000 ml Route: IV; Rate: 1 bolus; Site: right antecubital; 22:00 Follow up: IV Status: Completed infusion; IV Intake: 1000ml vc 21:34 Drug: NS 0.9% 1000 ml Route: IV; Rate: 1 bolus; Site: right wrist; 22:34 Follow up: IV Status: Completed infusion; IV Intake: 1000ml vc 21:34 Drug: Zosyn 3.375 grams Route: IVPB; Infused Over: 60 mins; Site: right wrist; 22:34 Follow up: IV Status: Completed infusion; IV Intake: 50ml vc Disposition: 03/11/20 00:44 Hospitalization ordered by Keaton Dowd for Inpatient Admission. Preliminary diagnosis are Fever, unspecified, Urinary tract infection, site not specified. - Bed requested for Telemetry/MedSurg (Inpatient). - Status is Inpatient Admission. vc - Condition is Stable. - Problem is new. - Symptoms are unchanged. Addendum: 03/12/2020 07:12 Co-signature as Attending Physician, Hong Castelan MD I agree with the assessment and m plan of care. Signatures: Dispatcher [facility] Vijaya Traylor RN RN mw Therrien, Shelly, MARGOT-Fatmata MUSIC SOUND LIGHT TECHNICIAN-[place] Jennie Ochoa RN RN vc Harris, Amy, RN RN ah Lewis, Lynsay, RN RN 1 Hong Castelan MD MD [id number] Corrections: (The following items were deleted from the chart) 03/10 20:54 19:32 Document PUI# ordered. snw lp1 20:54 19:32 Notify Health Dept [phone]/ ordered. [facility] lp1 21:46 19:33 UA MICROSCOPIC+U.LAB.BRZ ordered. EDMS EDMS 03/11 01:32 00:44 Hospitalization Ordered by Keaton Dowd MD for Inpatient Admission. Preliminary mw diagnosis is Fever, unspecified; Urinary tract infection, site not specified. Bed requested for Telemetry/MedSurg (Inpatient). Status is Inpatient Admission. Condition is Stable. Problem is new. Symptoms are unchanged. snw : 01:32 03/11/2020 00:44 Hospitalization Ordered by Keaton Dowd MD for Inpatient vc Admission. Preliminary diagnosis is Fever, unspecified; Urinary tract infection, site not specified. Bed requested for Telemetry/MedSurg (Inpatient). Status is Inpatient Admission. Condition is Stable. Problem is new. Symptoms are unchanged. mw
[2020-03-11] MEDS ORDERED: ACETAMINOPHEN 500 MG TAB PO PRN (01:13)
[2020-03-11] MEDS ORDERED: ONDANSETRON 4 MG/2 ML VIAL IV PRN (01:13)
[2020-03-11 02:32] VITALS: BMI 36.6
[2020-03-11] MEDS: NA CHLORIDE 0.9% 1,000 ML IV SCH ×3 (03:02→22:17)
[2020-03-11] MEDS: MORPHINE 2 MG/ML SYR IV PRN ×4 (03:03→22:16)
[2020-03-11] MEDS: CEFTRIAXONE/SWI 1gm 1 GM/10 ML SYR IV SCH ×2 (05:49→18:05)
[2020-03-11] MEDS ORDERED: CEFTRIAXONE 1 GM/NS 50 ML 1 GM/50 ML BAG IV SCH (06:00)
[2020-03-11 06:05] LABS: Absolute Lymphocytes (CBC) 2.1 K/uL (0.7-4.9); Basophils % 0.3 % (0-1.3); Hematocrit 41.9 % (39.6-49.0); Lymphocytes % 16.5 % (15.3-44.8); RBC Red Blood Cell Count 4.65 M/uL (4.33-5.43)
[2020-03-11 06:11] LABS: Magnesium 2.2 mg/dL (1.8-2.4)
--- NOTE | 2020-03-11 08:01 | P.HP ---
Certification for Inpatient Patient admitted to: Observation With expected LOS: <2 Midnights Patient will require the following post-hospital care: None Practitioner: I am a practitioner with admitting privileges, knowledge of patient current condition, hospital course, and medical plan of care. Services: Services provided to patient in accordance with Admission requirements found in Title 42 Section 412.3 of the Code of Federal Regulations Patient History Date of Service: 03/11/20 Reason for admission: Bilateral pyelonephritis History of Present Illness: Patient is a 54-year-old gentleman came into the hospital with back tenderness. Patient's pain was mainly in the right flank. Patient has been having some back difficulty and is scheduled to get an epidural in a week. However, patient has been having fever for the last couple of days. Patient decided to come into the ER for further evaluation. He has been having some dysuria as well. In the emergency room his workup revealed that he had bilateral pyelonephritis. Patient has some nausea but no vomiting. Patient will be admitted to the hospital for further evaluation. Allergies acetaminophen [From Percocet] Allergy (Verified 03/11/20 02:25) Itching/Hives/Rash ciprofloxacin [From Cipro] Allergy (Verified 03/11/20 02:25) Unknown oxycodone [From Percocet] Allergy (Verified 03/11/20 02:25) Itching/Hives/Rash Home Medications: Metformin HCl 500 mg PO BID 03/11/20 Propafenone HCl [Propafenone HCl ER] 325 mg PO BID 03/11/20 Rivaroxaban [Xarelto] 20 mg PO DAILY 03/11/20 Tapentadol HCl [Nucynta] 75 mg PO BEDTIME 03/11/20 Valacyclovir HCl [Valacyclovir] 500 mg PO DAILY 03/11/20 Valsartan 160 mg PO DAILY 03/11/20 hydroCHLOROthiazide [Hydrochlorothiazide*] 12.5 mg PO DAILY 03/11/20 - Past Medical/Surgical History Has patient received pneumonia vaccine in the past: No Diabetic: Yes -: Atrial Fibrillation (2018) -: Diabetes- NIDDm -: Hypertension -: Lower Back Surgery (2006) -: Cervical Fusion (2012) -: Right Shoulder Surgery (2012) - Family History Father Medical History: Heart disease Mother Medical History: Diabetes Notes: Dementia - Social History Smoking Status: Former smoker Alcohol use: Yes Caffeine use: Yes Place of Residence: Home Review of Systems 10-point ROS is otherwise unremarkable Physical Examination - Vital Signs Temperature: 98 F Blood Pressure: 138/77 Pulse: 100 Respirations: 18 Pulse Ox (%): 98 - Physical Exam General: Alert, In no apparent distress, Oriented x3 Respiratory: Clear to auscultation bilaterally, Normal air movement Cardiovascular: Regular rate/rhythm, Normal S1 S2, No murmurs Gastrointestinal: Normal bowel sounds, Soft and benign, Non-distended, Tenderness Musculoskeletal: No clubbing, No swelling, No tenderness Integumentary: No rashes Neurological: Normal gait, Normal speech, Normal strength at 5/5 x4 extr, Normal tone, Sensation intact, Cranial nerves 3-12 intact, Normal affect Lymphatics: No axilla or inguinal lymphadenopathy - Studies Laboratory Data (last 24 hrs) 03/10/20 20:00: WBC 18.5 H, Hgb 14.5, Hct 43.2, Plt Count 199 03/10/20 20:00: Sodium 134 L, Potassium 3.7, BUN 21 H, Creatinine 0.98, Glucose 186 H, Total Bilirubin 0.4, AST 11 L, ALT 36, Alkaline Phosphatase 82, Amylase 48, Lipase 63 L 03/10/20 20:00: PT 11.6, INR 0.98, APTT 18.8 L Microbiology Data (last 24 hrs): 03/10/20 20:00 Nasopharnyx Coronavirus COVID-19 PCR - Final 03/10/20 20:00 Nasopharnyx Influenza Type A Antigen Screen - Final 03/10/20 20:00 Nasopharnyx Influenza Type B Antigen Screen - Final 03/10/20 20:00 Throat Group A Streptococcus Rapid Screen - Final Assessment & Plan - Problems (Diagnosis) (1) Pyelonephritis Current Visit: Yes Status: Acute (2) Fever Current Visit: Yes Status: Acute (3) Nausea Current Visit: Yes Status: Acute - Plan Plan: 1. IV hydration 2. Continue anti coagulation and anti rhythmic 3. Pain control 4. Monitor labs closely 5. EKG for atrial fibrillation 6. May need cardiology consultation pending arrhythmia evaluation 7. GI and DVT prophylaxis Discharge Plan: Home Plan to discharge in: 48 Hours - Advance Directives Does patient have a Living Will: No Does patient have a Durable POA for Healthcare: No - Code Status/Comfort Care Code Status Assessed: Yes Code Status: Full Code Critical Care: No Time Spent Managing PTS Care (In Minutes): 45
[2020-03-11] MEDS ORDERED: GLUCAGON 1 MG/VIAL IM PRN (08:24)
[2020-03-11] MEDS ORDERED: D50W 25 GM/50 ML SYRINGE/VIAL IV PRN (08:24)
[2020-03-11] MEDS ORDERED: TRAMADOL HCL 50 MG TAB PO PRN (08:31)
[2020-03-11] MEDS ORDERED: PROPAFENONE HCL 325 MG PO SCH (09:00)
[2020-03-11] MEDS: RIVAROXABAN 20 MG TABLET PO SCH (09:52)
[2020-03-11] MEDS: VALACYCLOVIR 500 MG TAB PO SCH (09:52)
[2020-03-11] MEDS: hydroCHLOROthiazide 12.5 MG CAP PO SCH (09:52)
[2020-03-11] MEDS: VALSARTAN 160 MG TAB PO SCH (10:16)
[2020-03-11] MEDS: INSULIN -REGULAR HUMAN 50 UNIT/0.5 ML ML SQ SCH ×3 (11:30→20:55)
--- NOTE | 2020-03-11 11:51 | P.PN ---
Subjective Date of Service: 03/11/20 Chief Complaint: Bilateral pyelonephritis Subjective: Improving, Doing well Physical Examination - Vital Signs Temperature: 98 F Blood Pressure: 137/73 Pulse: 89 Respirations: 18 Pulse Ox (%): 94 - Physical Exam General: Alert HEENT: Atraumatic Neck: Supple Respiratory: Clear to auscultation bilaterally, Normal air movement Cardiovascular: Normal pulses, Regular rate/rhythm Gastrointestinal: Other (Mild pain to the flank) Neurological: Normal speech, Normal strength at 5/5 x4 extr, Normal tone, Normal affect - Studies Laboratory Data (last 24 hrs) 03/10/20 20:00: WBC 18.5 H, Hgb 14.5, Hct 43.2, Plt Count 199 03/10/20 20:00: Sodium 134 L, Potassium 3.7, BUN 21 H, Creatinine 0.98, Glucose 186 H, Total Bilirubin 0.4, AST 11 L, ALT 36, Alkaline Phosphatase 82, Amylase 48, Lipase 63 L 03/10/20 20:00: PT 11.6, INR 0.98, APTT 18.8 L Microbiology Data (last 24 hrs): 03/10/20 20:00 Nasopharnyx Coronavirus COVID-19 PCR - Final 03/10/20 20:00 Nasopharnyx Influenza Type A Antigen Screen - Final 03/10/20 20:00 Nasopharnyx Influenza Type B Antigen Screen - Final 03/10/20 20:00 Throat Group A Streptococcus Rapid Screen - Final Medications List Reviewed: Yes Assessment & Plan Discharge Plan: Home Plan to discharge in: 24 Hours Physician Review Additional Text: Impression: Bilateral pyelonephritis Chronic atrial fibrillation on chronic anti coagulation therapy Hypertension Plan: Bilateral pyelonephritis: Continue IV antibiotic therapy. Await blood and urine culture results. COVID negative. Anticipate discharge as early as tomorrow if results are finalize. Chronic atrial fibrillation on chronic anti coagulation therapy: Consult cardiology to further evaluate. He has not followed up with Cardiology recently. He reports that Dr. Flanagan had wanted him to see electrophysiology in the near future. Case discussed with cardiology. Will console to establish care. Continue with his current medications of Xarelto and Rythmol. Hypertension: Continue medication Time Spent Managing Pts Care (In Minutes): 55
--- NOTE | 2020-03-11 18:11 | CON ---
Date of Consultation: 03/11/[address] Garrison on 03/11/2020. I saw the patient on 03/11/2020. Reason For Consultation: Atrial fibrillation. History Of Present Illness: Mr. Machado is a 54-year-old white male, has had a history of atrial fibr illation, chronic diabetes, and hypertension as well. He has been taking Rythmol and Xarelto for his atrial fibrillation. He was admitted for pyelonephritis. He has not seen Dr. Flanagan for quite some time and the office of Dr. Garrison consulted me because of his history and because of the need for fol lowup. He denied any palpitations or syncope. Denied any chest pain, shortness of breath, nausea, v omiting, or diaphoresis. Denied PND, orthopnea, pedal edema, palpitations, or syncope. He came in w ith pyelonephritis. He is presently on IV antibiotics. Past Medical History: As stated above. Allergies: HE IS ALLERGIC TO CODEINE, TYLENOL, CIPROFLOXACIN, AND CLINDAMYCIN. Medications: At home include Rythmol 325 b.i.d., Xarelto, acyclovir, valsartan, and hydrochlorothiaz jacinto. Review of Systems: Negative. Social History: Negative. Family History: Negative. Physical Examination: General: He was in no acute distress. Vital Signs: Stable. He was in atrial fibrillation, rate of 90. HEENT: Negative. Neck: Supple. No bruits. Chest: Clear. Cardiac: Revealed atrial fibrillation. Abdomen: Benign. Extremities: Revealed no clubbing, cyanosis, or edema. Diagnostic Data: His chest x-ray was negative. Urinalysis showed UTI. BNP was 380. White count wa s 12,800. Impression And Plan: Chronic atrial fibrillation, remains in atrial fibrillation despite Rythmol. H dasha is on Xarelto. I agree with the present regimen. He is asymptomatic at this point. We can certai nly continue his regimen for rate control and as long as he is taking Xarelto, he should be safe. If symptoms start or his heart rate continues to increase, we certainly can suggest an ablation as an o utpatient. I will be happy to see him in the office in the near future. He will make an appointment when he leaves. His other problems including hypertension and diabetes are fairly well controlled. His pyelonephritis is being treated adequately by Dr. Garrison. No change in medical therapy at this point. MYRANDA/MODLesli Voice ID: [id number] Report ID: [id number]
[2020-03-11] MEDS: PROPAFENONE HCL 325 MG PO SCH (20:54)
[2020-03-11] MEDS ORDERED: TAPENTADOL HCL 75 MG PO SCH (21:00)
--- NOTE | 2020-03-11 21:23 | RAD REPORT ---
EXAM DESCRIPTION: CT Abdomen and Pelvis With Intravenous Contrast CLINICAL HISTORY: The patient is 54 years old and is Male; Abd pain;Fever TECHNIQUE: Axial computed tomography images of the abdomen and pelvis with intravenous contrast. S agittal and coronal reformatted images were created and reviewed. This CT exam was performed using one or more of the following dose reduction techniques: automated exposure control, adjustment of t he mA and/or kV according to patient size, and/or use of iterative reconstruction technique. COMPARISON: No relevant prior studies available. FINDINGS: LUNG BASES: Unremarkable. No mass. No consolidation. ABDOMEN: LIVER: The liver is enlarged and diffusely fatty. GALLBLADDER AND BILE DUCTS: The gallbladder is. No calcified gallstones or ductal dilatation is seen. PANCREAS: Fatty infiltration of the pancreas is noted. SPLEEN: Unremarkable. ADRENALS: Unremarkable. No mass. KIDNEYS AND URETERS: Nonspecific bilateral perinephric stranding is present. The kidneys enhance symmetrically. There is no hydronephrosis or hydroureter of either kidney. No obstructing renal or ur eteral calculus is seen. STOMACH AND BOWEL: The stomach is distended with food contents and air. The small bowel is micha l in caliber. Stool is present throughout the colon. There is no mucosal thickening or evidence of kim wel obstruction. PELVIS: APPENDIX: The appendix is normal in caliber without surrounding inflammation. BLADDER: The bladder is well distended. REPRODUCTIVE: Unremarkable as visualized. ABDOMEN and PELVIS: INTRAPERITONEAL SPACE: Unremarkable. No free air. No significant fluid collection. BONES/JOINTS: Multilevel degenerative change of the spine is present. Bilateral pars defects are noted at L5 without evidence of anterolisthesis. SOFT TISSUES: The soft tissues are normal. VASCULATURE: Minimal atherosclerosis of the vasculature is present. No abdominal aortic aneury sm. LYMPH NODES: Unremarkable. No enlarged lymph nodes. IMPRESSION: 1. Bilateral nonspecific perinephric stranding. Findings could be secondary to mild infectious proce ss. There is no obstructing renal or ureteral calculus. 2. Moderate stool burden without obstruction. Normal appendix. Electronically signed by: Jovana Vázquez MD 03/10/2020 11:25 PM CDT Due to temporary technical issues with the PACS/Fluency reporting system, reports are being signed by the in house radiologist as a courtesy to ensure prompt reporting. The interpreting radiologist is f ully responsible for the content of the report.
[2020-03-12 00:58] VITALS: O2SAT 96
[2020-03-12 04:36] LABS: Absolute Lymphocytes (CBC) 3.1 K/uL (0.7-4.9); Basophils % 0.4 % (0-1.3); Hematocrit 40.9 % (39.6-49.0); MPV 9.2 fL (7.6-11.3); RBC Red Blood Cell Count 4.53 M/uL (4.33-5.43)
[2020-03-12 04:37] VITALS: TEMP 97.8
[2020-03-12] MEDS: CEFTRIAXONE/SWI 1gm 1 GM/10 ML SYR IV SCH (05:06)
[2020-03-12] MEDS: INSULIN -REGULAR HUMAN 50 UNIT/0.5 ML ML SQ SCH (07:30)
[2020-03-12] MEDS: VALACYCLOVIR 500 MG TAB PO SCH (08:07)
[2020-03-12] MEDS: RIVAROXABAN 20 MG TABLET PO SCH (08:07)
[2020-03-12] MEDS: PROPAFENONE HCL 325 MG PO SCH (08:08)
--- NOTE | 2020-03-12 09:34 | P.DS ---
Admission Date: 03/11/20 Discharge Date: 03/12/20 Primary Care Provider: Ramona, Cardiology-Dr. Flanagan/Hardy Disposition: ROUTINE DISCHARGE Discharge Condition: GOOD Reason for Admission: Bilateral pyelonephritis Consultations: Cardiology-Dr. Dash Procedures: CXR: FINDINGS: Lungs are clear. Heart and vasculature are normal. No measurable pleural effusion and no pneumothorax. No acute bony abnormality seen. No acute aortic findings suspected. IMPRESSION: No acute cardiopulmonary process. No suspicious interval change. CT scan: FINDINGS: LUNG BASES: Unremarkable. No mass. No consolidation. ABDOMEN: LIVER: The liver is enlarged and diffusely fatty. GALLBLADDER AND BILE DUCTS: The gallbladder is. No calcified gallstones or ductal dilatation is seen. PANCREAS: Fatty infiltration of the pancreas is noted. SPLEEN: Unremarkable. ADRENALS: Unremarkable. No mass. KIDNEYS AND URETERS: Nonspecific bilateral perinephric stranding is present. The kidneys enhance symmetrically. There is no hydronephrosis or hydroureter of either kidney. No obstructing renal or ureteral calculus is seen. STOMACH AND BOWEL: The stomach is distended with food contents and air. The small bowel is normal in caliber. Stool is present throughout the colon. There is no mucosal thickening or evidence of bowel obstruction. PELVIS: APPENDIX: The appendix is normal in caliber without surrounding inflammation. BLADDER: The bladder is well distended. REPRODUCTIVE: Unremarkable as visualized. ABDOMEN and PELVIS: INTRAPERITONEAL SPACE: Unremarkable. No free air. No significant fluid collection. BONES/JOINTS: Multilevel degenerative change of the spine is present. Bilateral pars defects are noted at L5 without evidence of anterolisthesis. SOFT TISSUES: The soft tissues are normal. VASCULATURE: Minimal atherosclerosis of the vasculature is present. No abdominal aortic aneurysm. LYMPH NODES: Unremarkable. No enlarged lymph nodes. IMPRESSION: 1. Bilateral nonspecific perinephric stranding. Findings could be secondary to mild infectious process. There is no obstructing renal or ureteral calculus. 2. Moderate stool burden without obstruction. Normal appendix. Medical Problem List: Bilateral pyelonephritis Chronic atrial fibrillation on chronic anti coagulation therapy Hypertension DM-Type 2 Chronic pain Brief History of Present Illness: 54-year-old male with history of atrial fibrillation on chronic anti coagulation therapy, DM-Type 2, hypertension and chronic pain. Patient found to have pyelonephritis. Patient was admitted for treatment. Hospital Course: Patient presented with flank pain. CT scan revealed perinephric stranding suspicious for pyelonephritis. Patient also had some dysuria. Patient was admitted for evaluation and antibiotic treatment. White count elevated upon admission. Patient was also evaluated for COVID. This was negative. At discharge, patient has significantly improved. White count within normal range. Pro calcitonin negative. Patient with no fever for the last 24 hr. Flank pain has improved. So far blood cultures, and urine cultures negative. At discharge patient will continue with Bactrim DS 1 pill twice daily for 10 days. Patient will follow up with his PCP within 1 week to follow up this hospitalization. Patient may benefit with urology evaluation as an outpatient to further address. UTI prevention will be provided. Education on pyelonephritis will also be provided. PCP to follow up on final results of urine and blood culture. Will recommend for the patient to have lab-BMP rechecked within 1 week since the patient will be on Bactrim and as patient takes medication for hypertension and diabetes. The combination can stress his kidneys. Renal function within normal range at discharge. Recommended no nonsteroidal anti-inflammatories at this time. Patient may continue with his medication for pain. Patient may return to work on Thursday. Patient with underlying chronic atrial fibrillation on chronic anti coagulation therapy. Patient seen by Cardiology during the course of his stay. Patient will follow up with cardiology as an outpatient to further address. Patient may require electrophysiology referral as an outpatient. At this time patient will continue with Xarelto 20 mg daily and Rythmol 325 mg 1 pill twice daily. Recommend no use of nonsteroidal anti-inflammatories. Patient with hypertension. This has remained stable. Patient will continue with his current medication-valsartan 160 mg daily and hydrochlorothiazide 12.5 mg daily. Recommend to maintain blood pressure less 150/80. Further adjustment can be done by his PCP. As mentioned above will recommend recheck lab-BMP within 1 week. Patient with chronic back pain. Patient is to have an epidural this Thursday. Patient will continue with pain management. Patient will continue with his pain medication Nucynta 75 mg at bedtime. Patient with diabetes mellitus type 2. This has remained stable. At discharge he may continue with metformin 500 mg 1 pill twice daily. Recommend to maintain blood sugars less 140 fasting less than 200 after meals. Further adjustment can be done by his PCP. As mentioned above will recommend to recheck lab-BMP within 1 week. Vital Signs/Physical Exam: Temp Pulse Resp BP Pulse Ox 97.8 F 60 18 139/62 98 03/12/20 04:00 03/12/20 04:00 03/12/20 04:00 03/12/20 04:00 03/12/20 04:00 General: Alert, Cooperative HEENT: Atraumatic Neck: Supple Respiratory: Clear to auscultation bilaterally, Normal air movement Cardiovascular: Normal pulses, Regular rate/rhythm Gastrointestinal: Normal bowel sounds, Soft and benign, No tenderness, No masses, No rebound, No guarding Musculoskeletal: No tenderness, No warmth Integumentary: No tenderness/swelling, No erythema, No warmth, No cyanosis Neurological: Normal speech, Normal strength at 5/5 x4 extr, Normal tone, Normal affect Laboratory Data at Discharge: WBC 7.6 K/uL (4.3-10.9) D 03/12/20 03:54 Hgb 14.0 g/dL (13.6-17.9) 03/12/20 03:54 Hct 40.9 % (39.6-49.0) 03/12/20 03:54 Plt Count 199 K/uL (152-406) 03/12/20 03:54 PT 11.6 SECONDS (9.5-12.5) 03/10/20 20:00 INR 0.98 03/10/20 20:00 APTT 18.8 SECONDS (24.3-36.9) L 03/10/20 20:00 Sodium 139 mmol/L (136-145) 03/11/20 05:43 Potassium 4.0 mmol/L (3.5-5.1) 03/11/20 05:43 BUN 13 mg/dL (7-18) 03/11/20 05:43 Creatinine 0.92 mg/dL (0.55-1.3) 03/11/20 05:43 Glucose 151 mg/dL (74-106) H 03/11/20 05:43 Magnesium 2.2 mg/dL (1.8-2.4) 03/11/20 05:43 Total Bilirubin 0.4 mg/dL (0.2-1.0) 03/10/20 20:00 AST 11 U/L (15-37) L 03/10/20 20:00 ALT 36 U/L (12-78) 05/09/20 20:00 Alkaline Phosphatase 82 U/L (45-117) 03/10/20 20:00 Amylase 48 U/L (25-115) 03/10/20 20:00 Lipase 58 U/L (73-393) L 03/11/20 05:43 Home Medications: Metformin HCl 500 mg PO BID 03/11/20 Propafenone HCl [Propafenone HCl ER] 325 mg PO BID 03/11/20 Rivaroxaban [Xarelto] 20 mg PO DAILY 03/11/20 Tapentadol HCl [Nucynta] 75 mg PO BEDTIME 03/11/20 Valacyclovir HCl [Valacyclovir] 500 mg PO DAILY 03/11/20 Valsartan 160 mg PO DAILY 03/11/20 hydroCHLOROthiazide [Hydrochlorothiazide*] 12.5 mg PO DAILY 03/11/20 Sulfamethoxazole/Trimethoprim [Bactrim Ds Tablet] 1 each PO BID #20 tablet 03/12/20 New Medications: Sulfamethoxazole/Trimethoprim [Bactrim Ds Tablet] 1 each PO BID #20 tablet Patient Discharge Instructions: 1. Recommend follow up with PCP in 1 week to follow up this hospitalization. 2. Patient presented with flank pain. CT scan revealed perinephric stranding suspicious for pyelonephritis. Patient also had some dysuria. Patient was admitted for evaluation and antibiotic treatment. White count elevated upon admission. Patient was also evaluated for COVID. This was negative. At discharge, patient has significantly improved. White count within normal range. Pro calcitonin negative. Patient with no fever for the last 24 hr. Flank pain has improved. So far blood cultures, and urine cultures negative. At discharge patient will continue with Bactrim DS 1 pill twice daily for 10 days. Patient will follow up with his PCP within 1 week to follow up this hospitalization. Patient may benefit with urology evaluation as an outpatient to further address. UTI prevention will be provided. Education on pyelonephritis will also be provided. PCP to follow up on final results of urine and blood culture. Will recommend for the patient to have lab-BMP rechecked within 1 week since the patient will be on Bactrim and as patient takes medication for hypertension and diabetes. The combination can stress his kidneys. Renal function within normal range at discharge. Recommended no nonsteroidal anti-inflammatories at this time. Patient may continue with his medication for pain. Patient may return to work on Thursday. Patient with underlying chronic atrial fibrillation on chronic anti coagulation therapy. Patient seen by Cardiology during the course of his stay. Patient will follow up with cardiology as an outpatient to further address. Patient may require electrophysiology referral as an outpatient. At this time patient will continue with Xarelto 20 mg daily and Rythmol 325 mg 1 pill twice daily. Patient with hypertension. This has remained stable. Patient will continue with his current medication-valsartan 160 mg daily and hydrochlorothiazide 12.5 mg daily. Recommend to maintain blood pressure less 150/80. Further adjustment can be done by his PCP. As mentioned above will recommend recheck lab-BMP within 1 week. Patient with chronic back pain. Patient is to have an epidural this Thursday. Patient will continue with pain management. Patient will continue with his pain medication Nucynta 75 mg at bedtime. Patient with diabetes mellitus type 2. This has remained stable. At discharge he may continue with metformin 500 mg 1 pill twice daily. Recommend to maintain blood sugars less 140 fasting less than 200 after meals. Further adjustment can be done by his PCP. As mentioned above will recommend to recheck lab-BMP within 1 week. Diet: ADA Activity: Ad marcio Time spent managing pt's care (in minutes): 55
[2020-03-12] MEDS: VALSARTAN 160 MG TAB PO SCH (09:58)
[2020-03-12] MEDS: hydroCHLOROthiazide 12.5 MG CAP PO SCH (09:58)
[2020-03-12 09:59] VITALS: BP 120/69
--- NOTE | 2020-03-12 18:48 | EKG ---
Test Date: 2020-03-11 Test Time: 06:43:41 Instrument Inspector: RT-O MEASUREMENT RESULTS: Intervals: Rate: 109 MA: QRSD: 110 QT: 332 QTc: 447 [place]: P: MA: QRS: 56 T: 31 INTERPRETIVE STATEMENTS: Undetermined rhythm Otherwise normal ECG Compared to ECG 05/28/2019 12:59:43 Sinus rhythm no longer present Electronically Signed On 03-12-20 18:44:41 CDT by Ryan Dash
--- NOTE | 2020-03-14 07:26 | EKG ---
Test Date: 2020-03-11 Test Time: 06:44:53 Electrical Manufacturing Engineer: RT-O MEASUREMENT RESULTS: Intervals: Rate: 109 [place]: QRSD: 110 QT: 330 QTc: 444 [place]: P: AK: QRS: 55 T: 25 INTERPRETIVE STATEMENTS: Undetermined rhythm Otherwise normal ECG Compared to ECG 03/11/2020 06:43:41 No significant changes Electronically Signed On 03-14-20 07:23:16 CDT by Ryan Dash
== END 2020-03-12 11:15 | disposition home or self-care (01) ==
LOC: ER 19:09 → ERHOLD 03-11 01:21 → 2ND 03-11 01:55
PROVIDERS: ADMIT Hospitalist; ATTEND Family Medicine
DX: N10 Acute pyelonephritis (principal); E11.9 Type 2 diabetes mellitus without complications; I10 Essential (primary) hypertension; I48.20 Chronic atrial fibrillation, unspecified; G89.29 Other chronic pain; Z79.01 Long term (current) use of anticoagulants; Z20.828 Contact with and (suspected) exposure to other viral communicable diseases
CPT/HCPCS: 96365; 96361; 93005 ×2; 87040 ×2; 87070; 87088; 85025 ×3; 87086; 80048 ×2; 36415 ×2; 82150; 86900; 83735; 86850; 82550; 85610; 86901; 82947 ×4; 85379; 80076; 87081; 83605 ×3; 85730; 84484; 82553; 82728; 83690 ×2; 84145 ×2; 83880; 87804 ×2; 74177; 71045; 94660 ×2; 99285; U0002; Q9967; J2543; J2270 ×4; J0696 ×3; J7030 ×5; G0378 ×3; 81003; 81015

== ENCOUNTER 2020-10-09 05:45 | Emergency (ER) | payer OTHER ==
--- OUTSIDE RECORDS SUMMARY | 2020-10-09 05:47 | XMS REPORT | Clinical Summary ---
:1965 Author Organization [facility] Address [address] [place] [address] Care Team Providers Name Role Phone Asked, Pcp Primary Care Provider Unavailable Allergies Active Allergy Reactions Severity Noted Date Comments Ciprofloxacin Rash Low 09/13/2020 Medications Medication Sig Dispensed Refills Start Date End Date Status propafenone SR (RYTHMOL Take 325 mg by 0 Active SR) 325 MG 12 hr capsule mouth 2 (two) times a day. rivaroxaban (XARELTO) 20 Take 20 mg by 0 Active mg tablet mouth daily. valsartan (DIOVAN) 160 MG Take 160 mg by 0 Active tablet mouth daily. hydroCHLOROthiazide Take 12.5 mg 0 Active (HYDRODIURIL) 12.5 MG by mouth tablet daily. buPROPion SR (WELLBUTRIN Take 150 mg by 0 Active SR) 150 MG 12 hr tablet mouth daily. metoprolol succinate XL Take 25 mg by 0 Active (TOPROL-XL) 25 mg 24 hr mouth every tablet morning. tapentadoL (NUCYNTA) 75 Take 75 mg by 0 Active mg tabletIndications: mouth as acute pain needed .acute pain. 1 to 2 tabs prn daily albuterol (PROAIR HFA) 90 Inhale 1 puff 0 Active mcg/actuation inhaler daily. cholecalciferol, vitamin Take 2,000 0 Active D3, 50 mcg (2,000 unit) Units by mouth capsule capsule daily. metFORMIN (GLUCOPHAGE) Take 500 mg by 0 Active 500 mg tablet mouth 2 (two) times a day with meals. alum-mag hydroxide-simeth Take 30 mL by 0 09/15/2020 10/15/2020 Active (MAALOX PLUS) 200-200-20 mouth 4 (four) mg/5 mL suspension times a day before meals and nightly for 30 days. benzocaine-menthoL Apply 1 0 09/15/2020 10/15/2020 Active (CEPACOL MAX) 15-3.6 mg lozenge to lozenge cheek every 2 (two) hours as needed (sore throat) for up to 30 days. colchicine 0.6 mg tablet Take 0.5 14 tablet 0 09/15/202010/02 Active tablets (0.3 mg total) by mouth 2 (two) times a day as needed (post ablation chest pain) for up to 30 days. pantoprazole (PROTONIX) Take 1 tablet 60 tablet 0 09/15/2020 1 12/16/2019 Active 40 MG EC tablet (40 mg total) by mouth 2 (two) times a day for 30 days. Active Problems Problem Noted Date Atrial fibrillation 09/14/2020 Encounters Date Type Specialty Care Team Description 09/14/2020 Surgery Procedural Umang Licona MD EP COMPLETE E P STUDY Cardiology W ABLATION PULM ONARY VEIN [65174 (CP T)] 09/14/2020 Anesthesia Event Procedural Jamin Wen Cardiology MD Jai Benedict Angela [place] 09/14/2020 - Hospital Encounter General Internal Umang Licona MD Atr ial fibrillation, 09/15/2020 Medicine unspecified typ e (HCC) 09/14/2020 Travel 09/12/2020 Travel 09/12/2020 Community Orders ADMIN Umang Licona MD Pre-opera tive cardiovascular examination (Pr imary Dx) after 10/09/2019 Surgical History Surgery Date Site/Laterality Comments CARDIAC ELECTROPHYSIOLOGY 09/14/2020 N/A Proced ure: EP COMPLETE EP PROCEDURE STUDY W ABLATION PULMONARY VEIN; Surgeon: Umang Licona MD; Location: [facility] Corporate Security Officer Invasive Locatio n; Service: Cardiol ogy; Laterality: N/A; Medical History Medical History Date Comments Arrhythmia Hypertension A-fib (HCC) Sleep apnea Obesity Diabetes mellitus (HCC) Social History Tobacco Use Types Packs/Day Years Used Date Current Every Day Smoker 1 Tobacco Cessation: Ready to Quit: Yes Comments: "on and off since 17 year old" Sex Assigned at Date Recorded Not on file COVID-19 Exposure Response Date Recorded In the last month, have you been in contact with No / Unsure 09/14/2020 5:33 AM TECHNICAL DIRECTOR someone who was confirmed or suspected to have Coronavirus / COVID-19? Last Filed Vital Signs Vital Sign Reading Time Taken Comments Blood Pressure 130/79 09/15/2020 8:18 AM TECHNICAL DIRECTOR Pulse 66 09/15/2020 8:18 AM TECHNICAL DIRECTOR Temperature 37.1 C (98.8 F) 09/15/2020 7:47 AM TECHNICAL DIRECTOR Respiratory Rate 20 09/15/2020 4:36 AM TECHNICAL DIRECTOR Oxygen Saturation 95% 09/15/2020 7:47 AM TECHNICAL DIRECTOR Inhaled Oxygen Concentration - - Weight 130 kg (287 lb 1.6 oz) 09/15/2020 4:36 AM TECHNICAL DIRECTOR Height 188 cm (6' 2") 09/14/2020 5:50 AM TECHNICAL DIRECTOR Body Mass Index 36.86 09/14/2020 5:50 AM TECHNICAL DIRECTOR Plan of Treatment Health Maintenance Due Date Last Done Comments COLONOSCOPY SCREENING 2014 SHINGLES VACCINES (#1) 2014 INFLUENZA VACCINE Completed 06/07/2020 Procedures Procedure Name Priority Date/Time Associated Diagnosis Comme nts HC COMPLETE BLD COUNT Routine 09/15/2020 4:45 Re sults for this W/AUTO DIFF AM TECHNICAL DIRECTOR procedure are i n the results section. ESTIMATED GFR Routine 09/15/2020 4:00 Results fo r this AM TECHNICAL DIRECTOR procedure are i n the results section. BASIC METABOLIC PANEL Routine 09/15/2020 4:00 Re sults for this AM TECHNICAL DIRECTOR procedure are i n the results section. POC GLUCOSE Routine 09/14/2020 11:08 Results for this AM TECHNICAL DIRECTOR procedure are i n the results section. ACTIVATED CLOTTING Routine 09/14/2020 10:50 Resul ts for this TIME AM TECHNICAL DIRECTOR procedure are i n the results section. ACTIVATED CLOTTING Routine 09/14/2020 10:45 Resul ts for this TIME AM TECHNICAL DIRECTOR procedure are i n the results section. EP COMPLETE EP STUDY Routine 09/14/2020 10:42 Atrial fibrillat ion, Results for this W ABLATION PULMONARY AM TECHNICAL DIRECTOR unspecified type pro cedure are in VEIN (HCC) the results section. ACTIVATED CLOTTING Routine 09/14/2020 10:26 Resul ts for this TIME AM TECHNICAL DIRECTOR procedure are i n the results section. ACTIVATED CLOTTING Routine 09/14/2020 9:49 Resul ts for this TIME AM TECHNICAL DIRECTOR procedure are i n the results section. ACTIVATED CLOTTING Routine 09/14/2020 9:34 Resul ts for this TIME AM TECHNICAL DIRECTOR procedure are i n the results section. ACTIVATED CLOTTING Routine 09/14/2020 9:26 Resul ts for this TIME AM TECHNICAL DIRECTOR procedure are i n the results section. ACTIVATED CLOTTING Routine 09/14/2020 8:37 Resul ts for this TIME AM TECHNICAL DIRECTOR procedure are i n the results section. ARTERIAL LINE Routine 09/14/2020 8:34 Results fo r this AM TECHNICAL DIRECTOR procedure are i n the results section. [place] AN ELECTIVE Routine 09/14/2020 8:31 Results f or this ENDOTRACHEAL AIRWAY AM TECHNICAL DIRECTOR procedur e are in the results section. POC GLUCOSE Routine 09/14/2020 6:45 Results for this AM TECHNICAL DIRECTOR procedure are i n the results section. TYPE AND SCREEN Routine 09/14/2020 6:20 Results for this AM TECHNICAL DIRECTOR procedure are i n the results section. after 10/09/2019 Results CBC with platelet and differential (09/15/2020 4:45 AM TECHNICAL DIRECTOR) WBC 13.58 (H) 4.50 - 11.00 [facility]/uL [facility] RBC 4.48 4.40 - 6.00 [facility] HGB 13.3 (L) 14.0 - 18.0 [facility] gdL [facility] HCT 38.9 (L) 41.0 - 51.0 % [facility] MCV 86.8 82.0 - 100.0 [facility] MCH 29.7 27.0 - 34.0 pg [facility] MCHC 34.2 31.0 - 37.0 [facility] RDW - SD 40.1 37.0 - 55.0 fL [facility] MPV 10.5 8.8 - 13.2 fL [facility] Platelet count 225 150 - 400 k/uL [facility] Nucleated RBC 0.00 /100 WBC [facility] Neutrophils 72.3 (H) 39.0 - 69.0 % [facility] Lymphocytes 17.3 (L) 25.0 - 45.0 % [facility] Monocytes 9.3 0.0 - 10.0 % [facility] Eosinophils 0.3 0.0 - 5.0 % [facility] Basophils 0.2 0.0 - 1.0 % [facility] Immature granulocytes 0.6Comment: 0.0 - 1.0 % [facility] "Immature HOSPITAL granulocytes" (promyelocytes , myelocytes, metamyelocytes ) Specimen Plasma Performing Organization Address City/State/ZIP Code Phon e Number [facility] DEPARTMENT OF PATHOLOGY AND [address] [place] [address] [address] [address] Estimated GFR (09/15/2020 4:00 AM TECHNICAL DIRECTOR) Estimated GFR >=90 mL/min/1.73 [facility] Comment: HOSPITAL Catergory Units Interpretation G1 >=90 Normal or high G2 60-89 Mildly decreased G3a 45-59 Mildly to moderately decreas ed G3b 30-44 Moderately to severely decre ased G4 15-29 Severely decreased G5 <15 Kidney failure The eGFR was calculated using the Chronic Kidney Disea se Epidemiology Collaboration (CKD-EPI) equation. Interpretation is based on recommendations of the National Kidney Foundation-Kidney Disease Outcomes Loco lity Initiative (NKF-KDOQI) published in 2014. Specimen Plasma Performing Organization Address City/State/[facility] Code Phon e Number [facility] DEPARTMENT OF PATHOLOGY AND [address] [place], [place] [id number] [address] [address] Basic metabolic panel (09/15/2020 4:00 AM TECHNICAL DIRECTOR) Pathologist Sig nature Sodium 135 135 - 148 mEq/L [facility] L Potassium 4.2 3.5 - 5.0 mEq/L [facility] L Chloride 98 98 - 112 mEq/L [facility] CO2 24 24 - 31 mEq/L [facility] Anion gap 13@ANIO 7 - 15 mEq/L [facility] BUN 15 6 - 20 mg/dL [facility] Creatinine 0.85 0.70 - 1.20 mg/dL [facility] Glucose 166 (H) 65 - 99 mg/dL [facility] Calcium 9.1 8.3 - 10.2 mg/dL [facility] Specimen Plasma Performing Organization Address City/State/ZIP [facility] Phon e Number [facility] DEPARTMENT OF PATHOLOGY AND [address] [place], [place] [phone] [address] [address] POC glucose (09/14/2020 11:08 AM TECHNICAL DIRECTOR)Only the most recent of2 resultswithin the time period is included. Pathologist Sig nature POC glucose 177 (H) 65 - 99 mg/dL [facility] Comment: HOSPITAL Door Machine Operator Name: Marco Griffin Device ID: [id number] Chartable: [facility] Notified RN Specimen Blood Performing Organization Address City/[facility]/ZIP Code Phon e Number [facility] DEPARTMENT OF PATHOLOGY AND [address] [place] [phone] Activated clotting time (09/14/2020 10:50 AM TECHNICAL DIRECTOR)Only the most recent of7 resultswithin the time period is included. Activated clotting 153 (H) 96 - 152 sec [facility] Comment: HOSPITAL Door Machine Operator Name: Jai Mendes Device ID: [id number] Specimen Performing Organization Address City/[facility] Code Phon e Number [facility] DEPARTMENT OF PATHOLOGY AND [address] [place] [address] Electrophysiology procedure (09/14/2020 10:42 AM TECHNICAL DIRECTOR) Specimen Impressions Performed At -Successful pulmonary veins isolation x4 with entrance and exit block [facility] -Successful PWI isolation -No arrhythmia induced with high-dose Is uprel despite aggressive stimulation. RECOMMENDATIONS: 1. Bedrest for 4 hours after sheaths rem oval 2. Restart Xarelto in 4 hours 3. Lasix 20 mg IV when patie nt in recovery 4. Admit for overnight observation Narrative Performed At This result has an attachment that is no t available. DATE OF OPERATION: September 14, 2020 [employer] POSTDOCTORAL RESEARCH FELLOW: Umang Licona MD PREOPERATIVE DIAGNOSES: -Paroxysmal atrial fibrillation -Obesity -Obstructive sleep apnea on CPAP -Hypertension -Kdp-smqtqrk-gagvwklim diabetes POSTOPERATIVE DIAGNOSES: -Paroxysmal atrial fibrillation -Obesity -Obstructive sleep apnea on CPAP -Hypertension -Wql-lznffps-wqsrrqong diabetes PROCEDURES PERFORMED: -Ultrasound guided vascular access -Afib ablation with PVI and extrapulmonary ablation fo r PWI -3D mapping -Stimulation after drug infusion -Intra cardiac echocardiography (ICE) COMPLICATIONS: None ESTIMATED BLOOD LOSS: <30cc HISTORY OF PRESENT ILLNESS: In brief, this is a 55-yea r-old gentleman with history of symptomatic paroxysmal atrial fibrillation refractory to propafenone who presents for atrial fibrillation ablat ion to avoid long-term use of medications. PROCEDURE IN DETAIL: Consent was obtained from the pat ient after a full explanation of the risks and benefits of the procedure . The patient was brought to the electrophysiology lab in the [facility]. The patient was prepared and draped in a sterile fashion. General anes thesia with intratracheal ventilation administered by the anesthes ia service was used for the procedure. Esophageal temperature monitoring w as performed throughout the case using CIRCA catheter. Patient pres ented to the EP lab in normal sinus rhythm. Sheaths were placed using mo dified Seldinger technique. Three venous sheaths (9Fr, long 7Fr and moira g 9Fr sheath) were placed in the right femoral vein using ultrasound guid ance without complication. A intracardiac echocardiography catheter (ICE) was inserted via the 9Fr sheath and advanced into the right atrium and the right ventricle. At baseline, there was no pericardial eff usion and normal EF. Using SOUND, the CTI, CS os, fossa, LPVs, RPVs were ma rked. The left atrium was noted to be moderate enlarged and measured at 4.9cm. The ICE catheter was later used to guide transseptal puncture and monitor for procedure complications. Next, the RFV 9Fr sheath was upgraded to a medium curl Agilis sheath, through which a [employer] SF catheter, DF curve was a dvanced to the RA, and a Fast Anatomic Map (FAM) was done for the IVC, RA septum, fossa and SVC. A live wire duodecapolar diagnostic catheter was then advanced into the coronary sinus and lateral lateral cindy. Next, w e turned out attention to left sided access. After titrating heparin drip to achieve an ACT > 350 s ec, transseptal puncture was performed with [place] long needle (requir ing RF) using ICE guidance. Left (22 mmHg) atrial pressure was measured to assess intracardiac filling pressures. There were no compli cations. Following transseptal puncture, Agilis sheath was advanced into the LA, and the ablator was then exchanged to a DF Pentarray catheter. A detailed 3D electroanatomical and voltage map was cr eated while in normal sinus rhythm in the left atrium using CARTO map ping system. Mostly normal voltage was seen throughout. There was small area of low voltage seen on the posterior wall. After exchanging the Pen tarray to the ablation catheter, we proceeded to pulmonary veins iso lation. The left pulmonary veins were circumferentially isolated as a c ommon os using RF ablation. Left veins were isolated from the first pa ss. The right pulmonary veins were circumferentially isolated as a c ommon os using RF ablation. The right pulmonary veins were isolated fr om the first pass. Prior to ablation of right sided veins, pacing was per formed and right phrenic nerve course was avoided (PN was not captured at high output pacing prior to ablation). 40 W lesions were used in the anterior sites, targeting Ablation Index ~450-500units. Posterior site s we used high power, short duration lesions (50W for 5-7secs) were u sed. Posterior wall was then isolated with roof and floor line between the 2 PVs. Additional lesions were needed at the roof and the middle of the PW to achieve isolation. There was entrance and exit block to the po sterior wall with no exit at high output pacing. Esophagus was noted to be close to the left inferior pulmonary vein. The left and right pulmonary veins were confirmed to remain isolated with no exit at high output pacing. With Isuprel infusion up to 20mcg/min, no vein reconnection and non -PV trigger was seen. CS burst pacing from 250ms to 180msec during isu prel washout, no afib or organized AT/flutter was induced. Heparin w as stopped and catheters were withdrawn into the RA. At this time case was successfully concluded. AH timothy sured 91 ms and HV measured 48 ms. Post-procedure ICE showed no change. At this time, GA was stopped and patient was extubated; No immediate compli cations. Protamine was given at the end of the procedure. Sheaths were pulled in the lab and figure of eight suture was placed. Patient was transfe rred to the PACU in a stable condition. Performing Organization Address City/State/[facility] Code [facility] e Number HM [facility] [address], [place] [address] Arterial line (09/14/2020 8:34 AM TECHNICAL DIRECTOR) Narrative Performed At Cinthya Vergara 09/14 8:35 AM Arterial line Performed by: Cinthya Vergara so Authorized by: Jamin Wen MD Patient Location: OR Start Time: 09/14/2020 8:05 AM End Time: 09/14/2020 8:15 AM Staff: Anesthesiologist: Jamin Wen MD Resident/ARTISTS' MODEL/AA: Cinthya [facility] Performed by: Resident/ARTISTS' MODEL/AA Pre-procedure: patient identified, IV ch ecked, site and side verified, risks and benefits discussed, procedure verified, surgical consent complete, patient position confirmed, mo nitors and equipment checked, pre-op evaluation complete and timeout p erformed prior to procedure MSBT: antiseptic used, all elements of maximal sterile barrier technique followed, hand hygiene performed, cap/go wn used by other personnel and solutions labeled Indications: Indications: hemodynamic monitoring Anesthesia: Anesthesia: General Procedure Details: Arterial Line placement: Placed pos t induction Line placement site: Radial Line placement side: Right Arterial line gauge: 20 G Number of attempts: 2 Ultrasound guidance used: Yes Post-procedure: Post-procedure: Sterile dressing ap plied Post procedure circulation, sensation, movement: Normal and unchanged Notes: Small hematoma after first attempt, pressure held. No hematoma after placement. Airway (09/14/2020 8:31 AM TECHNICAL DIRECTOR) Narrative Performed At Cinthya Vergara [facility] 09/14 8:34 AM Airway Date/Time: 09/14/2020 8:09 AM Performed by: Jamin Wen M D Authorized by: Jamin Wen MD Location: OR Urgency: Elective Difficult Airway: No Anesthesiologist: Jamin Wen MD Resident/ARTISTS' MODEL/AA: Cinthya Vergara Performed by: anesthesiologist Preoxygenated with 100% O2: Yes C-spine Precautions Maintained Throughou t: Yes Mask Ventilation: Easy mask Final Airway Type: Endotracheal airway Final Endotracheal Airway: ETT Cuffed: Yes Technique Used: Video laryngoscopy Devices/Methods Used in Placement: Int ubating stylet Insertion Site: Oral Blade type: Glidescope. Laryngoscope Blade/Videolaryngoscope Perfecto zhu Size: 4 ETT Size (mm): 8.0 Cuff at minimum occlusion pressure: Yes Measured from: Lips ETT to Lips (cm): 23 Placement Verified by: CO2 detection and direct visualization Laryngoscopic view: Grade I - full vie w of glottis Rapid Sequence Induction (RSI): No Modified RSI: No Number of Attempts at Approach: 1 Preoxygenation times five minutes on 100% FiO2. Ap h IV induction. Eyes taped after loss of eyelash reflex. Easy mask ventilat ion without OPA. DL times 1 with Glidescope 4 (elective use of glidescope due to neck pain, numbness, and tingling), Grade 1 view. ETT passed atra umatically through vocal cords. Cuffed to seal. Positive chest rise, posi tive mist, positive EtCO2. ETT taped to secure. No damage to lips, teeth, gums or oropharynx. VSS. Type and screen (09/14/2020 6:20 AM TECHNICAL DIRECTOR) Pathologist Sig nature ABO grouping A [facility] Rh type POS [facility] Antibody screen (gel) NEG [facility] Specimen Plasma Performing Organization Address City/State/ZIP Code Phon e Number [facility] DEPARTMENT OF PATHOLOGY AND [address], [place] [address] GENOMIC MEDICINE [facility] [address] [place] [address] after 10/09/2019 Advance Directives For more information, please contact: [phone] Type Date Recorded Patient Switchman Explanati on Advance Directives, Living Will and Medical Power of Profiling Machine Set Up Operator
--- OUTSIDE RECORDS SUMMARY | 2020-10-09 05:48 | XMS REPORT | Summary of Care ---
:1965 Author Organization [facility] - Health Address [address] [place] [address] Care Team Providers Name Role Phone Frankie Rodriguez Primary Care Provider Encounter Details Date Type Department Care Team Description 09/21/2020 Orders Only [facility] Doctor Unassigned, No [address] [facility] [place] [address] [address] [id number] Allergies Active Allergy Reactions Severity Noted Date Comments Ciprofloxacin Rash High 07/30/2018 Clindamycin Hives 12/17/2018 Oxycodone-Acetaminophen Other - See comments 9 Generalized skin redness and pap ules on inner hands documented as of this encounter (statuses as of 09/21/2020) Medications Medication Sig Dispensed Refills Start Date End Date Status hydroCHLOROthiazide 12.5 Take 12.5 mg 0 Active mg capsule by mouth daily. meloxicam 15 mg tablet Take 15 mg by 0 Active mouth daily. aspirin 81 mg chewable Take 81 mg by 0 Active tablet mouth daily. cyclobenzaprine HCl Take by 0 Active (FLEXERIL ORAL) mouth 3 (three) times daily as needed. rivaroxaban (XARELTO ORAL) Take by 0 Active mouth. testosterone (ANDROGEL) Apply 2 Pump 75 g 3 06/10/2019 Active 20.25 mg/1.25 gram (1.62 to area(s) %) gel pumpIndications: daily. Hypogonadism in male valsartan 160 mg tablet Take 160 mg 0 12/16/2019 Active by mouth daily. propafenone 325 mg 12 hr TAKE 1 0 12/29/2019 Active capsule CAPSULE BY MOUTH EVERY 12 HOURS doxycycline hyclate 100 mg TAKE 1 TAB BY 0 0 Active tablet MOUTH DAILY WITH FOOD. TAKE 2HOURS BEFORE OR AFTER VITAMIN SUPPLEMENTS. metFORMIN 500 mg Take 1 tablet 180 tablet 3 02/03/2020 Active tabletIndications: by mouth 2 Hypogonadism in male (two) times daily with meals. ACCU-CHEK GUIDE strip USE TO CHECK 100 Strip 1 04/23/2020 Active BLOOD SUGAR DAILY. ACCU-CHEK FASTCLIX LANCET USE TO CHECK 102 Each 1 05/28/2020 Active DRUM Misc BLOOD SUGAR DAILY. documented as of this encounter (statuses as of 09/21/2020) Active Problems Not on filedocumented as of this encounter (statuses as of 09/21/2020) Immunizations Name Administration Dates Next Due Zoster [...] been in contact with No / Unsure 09/21/2020 3:36 PM ERGONOMICS CONSULTANT someone who was confirmed or suspected to have Coronavirus / COVID-19? documented as of this encounter Last Filed Vital Signs Not on filedocumented in this encounter Plan of Treatment Date Type Specialty Care Team Description 09/21/2020 Office Visit Endocrinology Diabetes & Toy Fenton MD Metabolism [address] [address] [phone] Health Maintenance Due Date Last Done Comments HEPATITIS C (HCV) SCREEN 1965 Depression Screening 1976 DTaP,Tdap,and Td Vaccines (1 - 1983 Tdap) COLON CANCER SCREENING ANNUAL 2014 FIT/FOBT COLON CANCER SCREENING FIT DNA 2014 EVERY 3 YEARS COLON CANCER SCREENING 2014 SIGMOIDOSCOPY EVERY 5 YEARS COLONOSCOPY 2014 Colorectal Cancer Screening 2014 Zoster Recombinant Vaccine 03/25/2019 01/28/2019 (SHINGRIX) (2 of 2) LUNG CANCER SCREEN: Recommended 2019 for age 55-80 with 30 + pack year history INFLUENZA VACCINE (#1) 2020 PNEUMOCOCCAL 0-64 YEARS COMBINED Aged Out No longer eligible based on SERIES patient's age to complete this topic documented as of this encounter Procedures Procedure Name Priority Date/Time Associated Diagnosis Comme nts CONSENT/REFUSAL FOR Routine 09/21/2020 3:40 PM DIAGNOSIS AND TREATMENT ERGONOMICS CONSULTANT ASSIGNMENT OF BENEFITS Routine 09/21/2020 3:40 PM ERGONOMICS CONSULTANT documented in this encounter Results Not on filedocumented in this encounter Insurance Payer Benefit Plan / Group Subscriber ID Effective Dates Phone Address Type AETNA AETNA CHOICE POS II [id number] 2018-Present POS documented as of this encounter
--- OUTSIDE RECORDS SUMMARY | 2020-10-09 05:48 | XMS REPORT | Continuity of Care Document ---
:1965 Author Organization [facility] t Address [address] [place] [address] Care Team Providers Name Role Phone Asked, Pcp Primary Care Physician Unavailable Doctor Unassigned, Name Attending Clinician Unavailable Carol Renae MD Attending Clinician Efrem HAMILTON Attending Clinician Jak Wen MD Attending Clinician Heaven Vergara Attending Clinician EFREM Admitting Clinician Unavailable Payers Payer Name Policy Type Policy Effective Date Expiration Date Sour ce Number AETNAAETNA [id number] 2018 Rives HMO,POS,EPO, 00:00:00 Dorian NAIK/[id number]/ MO Problems Condition Condition Condition Status Onset Resolution Last Treating Co mments Source Name Details Category Date Date Treatment Clinician Date Atrial Atrial Disease Active 2019-11 Rives fibrillati fibrillati 11-14 Me thodi on on 00:00: st 00 Allergies, Adverse Reactions, Alerts Allergy Allergy Status Severity Reaction(s) Onset Inactive Treating Comm ents Source Name Type Date Date Clinician Ciproflo Propensi Active Rash 2019-11 [place] xacin ty to 11-13 Methodi adverse 00:00: st reaction 00 s to drug Social History Social Habit Start Date Stop Date Quantity Comments Source Sex Assigned At Rives M ethodist Exposure to Not sure Rives Metho dist SARS-CoV-2 (event) Cigarettes smoked 2020-09-17 2020-09-17 William Alarcon current (pack per 00:00:00 00:00:00 day) - Reported Tobacco Comment 2020-09-14 2020-09-14 "on and off Thomas Religion 00:00:00 00:00:00 since 17 year old" Smoking Status Start Date Stop Date Source Current every day smoker 2020-09-17 00:00:00 [place] Religion Medications Ordered Filled Start Stop Current Ordering Indication Dosage Frequency Signature Comments Components Source Medication Medication Date Date Medication? Clinician (SIG) Name Name propafenone 2019-11 Yes 325mg Q.5D Take 325 [place] SR (RYTHMOL 1-14 mg by Methodi SR) 325 MG 10:57: mouth 2 st 12 hr 32 (two) capsule times a day. rivaroxaban 2019-11 Yes 20mg QD Take 20 mg Thomas (XARELTO) 1-14 by mouth Method i 20 mg 10:57: daily. st tablet 32 valsartan 2019-11 Yes 160mg QD Take 160 [place] (DIOVAN) 1-14 mg by Methodi 160 MG 10:57: mouth st tablet 32 daily. hydroCHLORO 2019-11 Yes 12.5mg QD Take 12.5 Thomas thiazide 1-14 mg by Methodi (HYDRODIURI 10:57: mouth st L) 12.5 MG 32 daily. tablet buPROPion 2019-11 Yes 150mg QD Take 150 [place] SR 1-14 mg by Methodi (WELLBUTRIN 10:57: mouth st SR) 150 MG 32 daily. 12 hr tablet metoprolol 2019-11 Yes 25mg QD Take 25 mg [place] succinate 1-14 by mouth Method i XL 10:57: every st (TOPROL-XL) 32 morning. 25 mg 24 hr tablet tapentadoL 2019-11 Yes acute pain 75mg Take 75 mg Thomas (NUCYNTA) 1-14 by mouth Method i 75 mg 10:57: as needed st tablet 32 .acute pain. 1 to 2 tabs prn daily albuterol 2019-11 Yes 1{puff} QD Inhale 1 [place] (PROAIR 1-14 puff Methodi HFA) 90 10:57: daily. st mcg/actuati 32 on inhaler cholecalcif 2019-11 Yes 2000U QD Take 2,000 Thomas jeet, 1-14 Units by Methodi vitamin D3, 10:57: mouth st 50 mcg 32 daily. (2,000 unit) capsule capsule metFORMIN 2019-11 Yes 500mg Q.5D Take 500 [place] (GLUCOPHAGE 1-14 mg by Methodi ) 500 mg 10:57: mouth 2 st tablet 32 (two) times a day with meals. alum-mag 2019-11 2020- Yes 30mL Q.25D Take 30 mL [place] hydroxide-s 11-15 by mouth 4 M ethodi imeth 00:00: 23:59 (four) st (MAALOX 00 :00 times a PLUS) day before 200-200-20 meals and mg/5 mL nightly suspension for 30 days. benzocaine- 2019-11- Yes 1{lozen Q2H Apply 1 Thomas menthoL 11-15 ge} lozenge to Metho di (CEPACOL 00:00: 23:[address] MAX) 15-3.6 00 :00 every 2 mg lozenge (two) hours as needed (sore throat) for up to 30 days. colchicine 2019-11- Yes .3mg Q.5D Take 0.5 [place] 0.6 mg 11-15 tablets Methodi tablet 00:00: 23:59 (0.[address] 00 :00 total) by mouth 2 (two) times a day as needed (post ablation chest pain) for up to 30 days. pantoprazol 2019-11- Yes 40mg Q.5D Take 1 [place] e 11-15 tablet (40 Methodi (PROTONIX) 00:00: 23:59 mg total) s t 40 MG EC 00 :00 by mouth 2 tablet (two) times a day for 30 days. Vital Signs Vital Name Observation Time Observation Value Comments Source Systolic blood 2020-09-15 08:18:00 130 mm[Hg] Yesica n Religion pressure Diastolic blood 2020-09-15 08:18:00 79 mm[Hg] Harry on Religion pressure Heart rate 2020-09-15 08:18:00 66 /min William Alarcon Body temperature 2020-09-15 07:47:52 37.11 Mariaelena Julia Alarcon Oxygen saturation in 2020-09-15 07:47:52 95 /min William Alarcon Arterial blood by Pulse oximetry Respiratory rate 2020-09-15 04:36:02 20 /min Julia Alarcon Body weight 2020-09-15 04:36:02 130.228 kg William Alarcon BMI 2020-09-15 04:36:02 36.86 kg/m2 William Alarcon Body height 2020-09-14 05:50:00 188 cm William Alarcon Procedures Procedure Date / Time Performed Performing Clinician [facility] e COMPLETE BLD COUNT 2020-09-15 04:45:00 Manda Licona Religion W/AUTO DIFF BASIC METABOLIC PANEL 2020-09-15 04:00:00 Manda Licona ESTIMATED GFR 2020-09-15 04:00:00 Manda Licona odist POC GLUCOSE 2020-09-14 11:08:00 Manda Licona odist ACTIVATED CLOTTING TIME 2020-09-14 10:50:00 Manda Licona Religion ACTIVATED CLOTTING TIME 2020-09-14 10:45:00 Manda Licona Religion EP COMPLETE EP STUDY W 2020-09-14 10:42:32 Manda Licona on Religion ABLATION PULMONARY VEIN ACTIVATED CLOTTING TIME 2020-09-14 10:26:00 Manda Licona Religion ACTIVATED CLOTTING TIME 2020-09-14 09:49:00 Manda Licona Religion ACTIVATED CLOTTING TIME 2020-09-14 09:34:00 Manda Licona Religion ACTIVATED CLOTTING TIME 2020-09-14 09:26:00 Manda Licona Religion ACTIVATED CLOTTING TIME 2020-09-14 08:37:00 Manda Licona Religion ARTERIAL LINE 2020-09-14 08:34:35 Cinthya Vergara Me thodist [place] AN ELECTIVE 2020-09-14 08:31:28 Cinthya Vergara Me thodist ENDOTRACHEAL AIRWAY [place] POC GLUCOSE 2020-09-14 06:45:00 Manda Licona odist TYPE AND SCREEN 2020-09-14 06:20:00 Manda Licona odist Plan of Care Planned Activity Planned Date Details Comments Source Future Scheduled 2014 COLONOSCOPY SCREENING [place] Religion Test 00:00:00 [code = COLONOSCOPY SCREENING] Future Scheduled 2014 SHINGLES MAYNOR Robert n Religion Test 00:00:00 (#1) [code = SHINGLES VACCINES (#1)] Encounters Start End Encounter Admission Attending Care Care Encounter Source Date/Time Date/Time Type Type Clinicians Facility Department ID 2020-10-08 2020-10-08 Orders Doctor HENRRY [id number] 00:00:00 00:00:00 Only Unassigned, TASIA [id number] [place] [facility] [id number] 2020-09-21 2020-09-21 Office Renae [facility] [id number] 15:42:07 16:54:13 Visit Toy Carol Jason [id number] Jese [id number] Walt [id number] [facility] 2020-09-14 2020-09-15 Outpatient [facility] [id number] Rives 00:00:00 00:00:[address] Results Test Description Test Time Test Comments Results Result Comments Source Activated clotting time 2020-09-17 07:07:18 Test Item Value Reference Range Interpretation Comme nts Activated clotting time (test 153 96- 152 sec H Pot Filler Name: Jai code = 5298) Angela ID : [id number] Lab Interpretation (test code = Abnormal 23776-8) Rives [facility] metabolic [id number] 05:56:49 Test Item Value Reference Range Interpretation Comments Sodium (test code = 2951-2) 135 135- 148 mEq/L Potassium (test code = 2823-3) 4.2 3.5- 5.0 mEq/L Chloride (test code = 2075-0) 98 98- 112 mEq/L CO2 (test code = 2027-9) 24 24- 31 mEq/L Anion gap (test code = 52427-2) 13@ANIO 7- 15 mEq/L BUN (test code = 3094-0) 15 mg/dL 6-20 Creatinine (test code = 2160-0) 0.85 mg/dL 0.7-1.2 Glucose (test code = 2345-7) 166 mg/dL 65-99 H Calcium (test code = 32802-8) 9.1 mg/dL 8.3-10.2 Lab Interpretation (test code = Abnormal 96877-5) William MethodistEstimated [id number] 05:56:49 Test Item Value Reference Range Interpretation Comments Estimated GFR (test >=90 mL/min/1.73 m2 Glynn baez Units code = 5488) InterpretationG 1 >=90 Normal or highG2 60-89 Mildly idnzljjtjW8g 45-59 Mildly to mode rately gnxbhvmxoA6l 30-44 Moderately to severely decreasedG4 15-29 Severely decre asedG5 <15 Kidn ey failureThe eGFR was calculated [place] the Chronic Kidney Disease Epidemiology Co llaboration (CKD-EPI) equat ion. Interpretation is based on recommendations of the National Kidney Foundation-Kidn ey Disease Outcomes Qualit y Initiative (NKF-KDOQI) pub lished in 2014. William MethodistCBC with platelet and [id number] 05:29:53 Test Item Value Reference Range Interpretation Comments WBC (test code = 31402-5) 13.58 4.50- 11.00 k/uL H RBC (test code = 01116-3) 4.48 m/uL 4.4-6 HGB (test code = 718-7) 13.3 g/dL 14-18 L HCT (test code = 4544-3) 38.9 % 41-51 L MCV (test code = 787-2) 86.8 fL 82-100 MCH (test code = 785-6) 29.7 pg 27-34 MCHC (test code = 786-4) 34.2 g/dL 31-37 RDW - SD (test code = 40.1 fL 37-55 19261-0) MPV (test code = 73169-1) 10.5 fL 8.8-13.2 Platelet count (test code 225 150- 400 k/uL = 36885-4) Nucleated RBC (test code 0.00 /100 WBC = 74264-2) Neutrophils (test code = 72.3 % 39-69 H 25373-8) Lymphocytes (test code = 17.3 % 25-45 L 10915-6) Monocytes (test code = 9.3 % 0-10 08863-3) Eosinophils (test code = 0.3 % 0-5 22449-7) Basophils (test code = 0.2 % 0-1 64703-9) Immature granulocytes 0.6 % 0-1 "Immat ure (test code = 33270-7) granul ocytes" (promyelocytes, myelocytes, metamyelocytes) Lab Interpretation (test Abnormal code = 80124-1) Rives MethodistElectrophysiology [id number] 11:12:56-Successful pulmonary veins isolation x4 with entrance and exit block-Successful PWI isolation-No arrhythmia induced with high-dose Isuprel despite aggressive stimulation. RECOMMENDATIONS:1. Bedrest for 4 hours after sheaths removal2. Restart Xarelto in 4 hours 3. Lasix 20 mg IV when patient in recovery 4. Admit for overnight observationDATE OF OPERATION: September 14, 2020 PROGRESSIVE CARE NURSE: Manda Licona MD PREOPERATIVE DIAGNOSES:-Paroxysmal atrial tzxywaftremn-Pgxcntk-Lanatudsrci sleepapnea on EZMH-Jonxofzsnvxp-Jzz-insulin-dependent diabetes POSTOPERATIVE DIAGNOSES:- Paroxysmal jwntbmgcakvkndkvee-Mydshdq-Npijeervsrn sleep apnea on FQQS-Ckepjuxhwtzu-Tej-insulin-dependent diabetes PROCEDURES PERFORMED:- Ultrasound guided vascular access-Afib ablation with PVI and extrapulmonary ablation for PWI-3D mapping-Stimulation after drug infusion-Intra cardiac echocardiography (ICE) COMPLICATIONS: None ESTIMATED BLOOD LOSS: <30cc HISTORY OF PRESENT ILLNESS: In brief, this is a 55-year-old gentleman with history of symptomatic paroxysmal atrial fibrillation refractory to propafenone who presents for atrial fibrillation ablation to avoid long-term use of medications. PROCEDURE IN DETAIL: Consent was obtained from the patient after a full explanation of the risks and benefits of the procedure. The patient was brought to the electrophysiology lab in the fasting state. The patient was pr epared and draped in a sterile fashion. General anesthesia with intratracheal ventilation administered by the anesthesia service was used for the procedure. Esophageal temperature monitoring was performed throughout the case using CIRCA catheter. Patient presented to the EP lab in normal sinus rhythm. Sheaths were placed using modified Seldinger technique. Three venous sheaths (9Fr, long 7Fr and long 9Fr sheath) were placed in the right femoral vein using ultrasound guidance without complication. Aintracardiac echocardiography catheter (ICE) was inserted via the 9Fr sheath and advanced into the right atrium and the right ventricle. At baseline, there was no pericardial effusion and normal EF. Using SOUND, the CTI, CS os, fossa, LPVs, RPVs were marked. The left atrium was noted to be moderate enlarged and measured at 4.9cm. The ICE catheter was later used to guide transseptal puncture and monitor for procedure complications. Next, the RFV 9Fr sheath was upgraded to a medium curl Agilis sheath, through which a SmartTouch SF catheter, DF curve was advanced to the RA, and a Fast Anatomic Map (FAM) was done for the IVC, RA septum, fossa and SVC. A live wire duodecapolar diagnostic catheter was then advanced into the coronary sinus and lateral lateral cindy. Next, we turned out attention toleft sided access.After titrating heparin drip to achieve an ACT > 350 sec, transseptal puncture was performed with Winston long needle (requiring RF) using ICE guidance. Left (22 mmHg) atrial pressure was measured to assess intracardiac filling pressures. There were no complications. Following transseptal puncture, Agilis sheath was advanced into the LA, and the ablator was then exchanged to a DF Pentarray catheter. A detailed 3D electroanatomical and voltage map was created while in normal sinus rhythm in the left atrium using CARTO mapping system. Mostly normal voltage was seen throughout. There was small area of low voltage seen on the posterior wall. After exchanging the Pentarray to the ablation catheter, we proceeded to pulmonary veins isolation. The left pulmonary veins were circum ferentially isolated as a common os using RF ablation. Left veins were isolated from the first pass. The right pulmonary veins were circumferentially isolated as a common os using RF ablation. Theright pulmonary veins were isolated from the first pass. Prior to ablation of right sided veins, pacing was performed and right phrenic nerve course was avoided (PN was not captured at high output pacing prior to ablation). 40 W lesions were used in the anterior sites, targeting Ablation Index ~450-500units. Posterior sites we used high power, short duration lesions (50W for 5-7secs) were used. Posterior wall was then isolated with roof and floor line between the 2 PVs. Additional lesions were needed at the roof and the middle of the PW to achieve isolation. There was entrance and exit block to the posterior wall with no exit at high output pacing. Esophagus was noted to be close to the left inferior pulmonary vein. The left and right pulmonary veins were confirmed to remain isolated with no exit at high output pacing. With Isuprel infusion up to 20mcg/min, no vein reconnection and non-PV trigger was seen. CS burst pacing from 250ms to 180msec during isuprel washout, no afib or organized AT/flutter was induced. Heparin was stopped and catheters were withdrawn into the RA. At this time casewas successfully concluded. AH measured 91 ms and HV measured 48 ms. Post-procedure ICE showed no change. At this time, GA was stopped and patient was extubated; No immediate complications. Protaminewas given at the end of the procedure. Sheaths were pulled in the lab and figure of eight suture was placed. Patient was transferred to the PACU in a stable condition.[facility] glucose 2020-09-14 11:10:09 Test Item Value Reference Range Interpretation Comments POC glucose (test code 177 mg/dL 65-99 H Opera tor Name: = 57599-4) Marco Sykes ID: [id number] able: [facility] Notified health information tech Interpretation Abnormal (test code = 93660-1) Rives MethodistArterial [id number] 08:34:35LaCinthya donahueobasso 09/14/2020 8:35 AMArterial linePerformed by: Cinthya Vergara obassoAuthorized by: Jamin Wen MD Patient Location: ORStart Time: 09/14/2020 8:05 AMEnd Time: 09/14/2020 8:15 AMStaff: Anesthesiologist: Jamin Wen MD Resident/AGRICULTURE CONSULTANT/AA: Cinthya Vergara Performed by: Resident/AGRICULTURE CONSULTANT/AAPre-procedure: patient identified, IV checked, site and side verified, risks and benefits discussed, procedure verified, surgical consent complete, patient position confirmed, monitors and equipment checked, pre-op evaluation complete and timeout performed prior to procedure MSBT: antiseptic used, all elements of maximal sterile barrier technique followed, hand hygiene performed, cap/gown used by other personnel and solutions labeled Indications: Indications: hemodynamic monitoring Anesthesia: Anesthesia: GeneralProcedure Details: Arterial Line placement: Placed post induction Line placement site: RadialLine placement side: Right Arterial line gauge: 20 GNumber of attempts: 2 Ultrasound guidance used: Yes Post-procedure: Post- procedure: Sterile dressing applied Post procedure circulation, sensation, movement: Normal and unchangedNotes: Small hematoma after first attempt, pressure held. No hematoma after placement.Thomas [id number] 08:31:28Cinthya Vergara Lawrencekenneth 09/14/2020 8:34 AMAirway Date/Time: 09/14/2020 8:09 AMPerformed by: Jamin Wen MDAuthorized by: Jamin Wen MD Location: ORUrgency: ElectiveDifficult Airway: No Anesthesiologist: Jamin Wen, MDResident/AGRICULTURE CONSULTANT/AA: Xochilt VergaraelaPerformed by: anesthesiologistPreoxygenated with 100% O2: Yes C-spine Precautions Maintained Throughout: Yes Mask Ventilation: Easy maskFinal Airway Type: Endotracheal airwayFinal Endotracheal Airway: ETTCuffed: Yes Technique Used: Video laryngoscopyDevices/Methods Used in Placement: Intubating styletInsertion Site: OralBlade type: Glidescope.Laryngoscope Blade/Videolaryngoscope Blade Size: 4ETT Size (mm): 8.0Cuff at minimum occlusion pressure: Yes Measured from: LipsETT to Lips(cm): 23Placement Verified by: CO2 detection and direct visualization Laryngoscopic view: Grade I- full view of glottisRapid Sequence Induction (RSI): No Modified RSI: No Number of Attempts at Approach: 1 Preoxygenation times five minutes on 100% FiO2. Smooth IV induction. Eyes taped after lossof eyelash reflex. Easy mask ventilation without OPA. DL times 1 with Glidescope 4 (elective use of g lidescope due to neck pain, numbness, and tingling), Grade 1 view. ETT passed atraumatically throughvocal cords. Cuffed to seal. Positive chest rise, positive mist, positive EtCO2. ETT taped to secure. No damage to lips, teeth, gums or oropharynx. VSS.William MethodistType and [id number] 07:42:00 Test Item Value Reference Range Interpretation Comments ABO grouping (test code = 883-9) A Rh type (test code = 56389-1) POS Antibody screen (gel) (test code = NEG 890-4) William Alarcon
--- OUTSIDE RECORDS SUMMARY | 2020-10-09 05:49 | XMS REPORT | Summary of Care ---
:1965 Author Organization [facility] - Health Address [address] [place] [address] Care Team Providers Name Role Phone Frankie Rodriguez Primary Care Provider Encounter Details Date Type Department Care Team Description 10/08/2020 Orders Only [facility] Doctor Unassigned, No [address] [facility] [place] [address] [address] [place] [address] Allergies Active Allergy Reactions Severity Noted Date Comments Ciprofloxacin Rash High 07/30/2018 Clindamycin Hives 12/17/2018 Oxycodone-Acetaminophen Other - See comments 9 Generalized skin redness and pap ules on inner hands documented as of this encounter (statuses as of 10/08/2020) Medications Medication Sig Dispensed Refills Start Date [...] (XARELTO ORAL) Take by 0 Active mouth. valsartan 160 mg tablet Take 160 mg 0 12/16/2019 Active by mouth daily. propafenone 325 mg 12 hr TAKE 1 0 12/29/2019 Active capsule CAPSULE BY MOUTH EVERY 12 HOURS doxycycline hyclate 100 mg TAKE 1 TAB BY 0 0 Active tablet MOUTH DAILY WITH FOOD. TAKE 2HOURS BEFORE OR AFTER VITAMIN SUPPLEMENTS. ACCU-CHEK GUIDE strip USE TO CHECK 100 Strip 1 04/23/2020 Active BLOOD SUGAR DAILY. ACCU-CHEK FASTCLIX LANCET USE TO CHECK 102 Each 1 05/28/2020 Active DRUM Misc BLOOD SUGAR DAILY. Pantoprazole 40 mg Take 40 mg by 0 Active delayed-release suspension mouth daily. ALBUTEROL INHALE Inhale. 0 Act josé buPROPion SR 150 mg SR Take 150 mg 0 Active tablet by mouth 2 (two) times daily. metoprolol succinate XL 25 Take 25 mg by 0 Active mg 24 hr tablet mouth daily. tapentadoL 75 mg tablet Take by 0 Active mouth. cholecalciferol, vitamin Take by 0 Active D3, 50 mcg (2,000 unit) mouth. Chew benzocaine-menthoL 15-2.6 Apply as 0 Active mg Lozg directed. alum-mag hydroxide-simeth Take 30 mL by 0 Active (MAALOX ADVANCED) mouth every 6 200-200-20 mg/5 mL (six) hours suspension as needed for Indigestion. SITagliptin (JANUVIA) 100 Take 1 tablet 90 tablet 1 09/21/2020 Active mg tabletIndications: by mouth Prediabetes daily. metFORMIN 500 mg Take 1 tablet 180 tablet 3 09/21/2020 Active tabletIndications: by mouth 2 Hypogonadism in male (two) times daily with meals. testosterone (ANDROGEL) Apply 2 Pump 75 g 3 09/21/2020 Active 20.25 mg/1.25 gram (1.62 to area(s) %) gel pumpIndications: daily. Hypogonadism in male documented as of this encounter (statuses as of 10/08/2020) Active Problems Not on filedocumented as of this encounter (statuses as of 10/08/2020) Immunizations Name Administration Dates Next Due Zoster [...] with No / Unsure 09/21/2020 3:36 PM BRICKMASON someone who was confirmed or suspected to have Coronavirus / COVID-19? documented as of this encounter Last Filed Vital Signs Not on filedocumented in this encounter Plan of Treatment Date Type Specialty Care Team Description 01/25/2021 Office Visit Endocrinology Diabetes & Toy Fenton MD Metabolism [address] [facility] [address] [place] [address] 15 [phone] Health Maintenance Due Date Last Done Comments HEPATITIS C (HCV) SCREEN 1965 PNEUMOCOCCAL 0-64 YEARS COMBINED 1970 SERIES (1 of 1 - PPSV23) Depression Screening 1976 DTaP,Tdap,and Td Vaccines (1 [...] pack year history INFLUENZA VACCINE (#1) 2020 07/23/2016, 07/27/2015, 07/27/2015, Additional history exists documented as of this encounter Procedures Procedure Name Priority Date/Time Associated Diagnosis Comme nts EXTERNAL PROVIDER Routine 10/08/2020 12:01 AM BRICKMASON RECORDS documented in this encounter Results Not on filedocumented in this encounter Insurance Payer Benefit Plan / Group Subscriber ID Effective Dates Phone Address Type AETNA AETNA CHOICE POS II [id number] 2018-Present POS documented as of this encounter
--- OUTSIDE RECORDS SUMMARY | 2020-10-09 05:49 | XMS REPORT | Summary of Care ---
:1965 Author Organization [facility] Address [address] [place] [address] Care Team Providers Name Role Phone Frankie Rodriguez Primary Care Provider Reason for Visit Reason Comments Follow-up Diabetes Mellitus II Encounter Details Date Type Department Care Team Description 09/21/2020 Office Visit [facility] Toy Renae, Prediabet es (Primary Dx); Endocrinology- Hypogonadism in male; [address] Hyperlipidemia, unspecified hyperlipidem ia type [address] [address] [address], [address] [place] [address] [place], [place] [phone] [address] [phone] Allergies Active Allergy Reactions Severity Noted Date Comments Ciprofloxacin Rash High 07/30/2018 Clindamycin Hives 12/17/2018 Oxycodone-Acetaminophen Other - See comments 9 Generalized skin redness and pap ules on inner hands documented as of this encounter (statuses as of 09/21/2020) Medications Medication Sig Dispensed Refills Start End Date Status Date hydroCHLOROthiazide Take 12.5 0 Active 12.5 mg capsule mg by mouth daily. meloxicam 15 mg tablet Take 15 mg 0 Active by mouth daily. aspirin 81 mg chewable Take 81 mg 0 Active tablet by mouth daily. cyclobenzaprine HCl Take by 0 Active (FLEXERIL ORAL) mouth 3 (three) times daily as needed. rivaroxaban (XARELTO Take by 0 Active ORAL) mouth. valsartan 160 mg tablet Take 160 mg 0 Active by mouth 0 daily. propafenone 325 mg 12 TAKE 1 0 Active hr capsule CAPSULE BY 0 MOUTH EVERY 12 HOURS doxycycline hyclate 100 TAKE 1 TAB 0 Active mg tablet BY MOUTH 0 DAILY WITH FOOD. TAKE 2HOURS BEFORE OR AFTER VITAMIN SUPPLEMENTS . ACCU-CHEK GUIDE strip USE TO 100 Strip 1 Active CHECK BLOOD 0 SUGAR DAILY. ACCU-CHEK FASTCLIX USE TO 102 Each 1 A ctive LANCET DRUM Misc CHECK BLOOD 0 SUGAR DAILY. Pantoprazole 40 mg Take 40 mg 0 Active delayed-release by mouth suspension daily. ALBUTEROL INHALE Inhale. 0 Act josé buPROPion SR 150 mg SR Take 150 mg 0 Active tablet by mouth 2 (two) times daily. metoprolol succinate XL Take 25 mg 0 Active 25 mg 24 hr tablet by mouth daily. tapentadoL 75 mg tablet Take by 0 Active mouth. cholecalciferol, Take by 0 Act josé vitamin D3, 50 mcg mouth. (2,000 unit) Chew benzocaine-menthoL Apply as 0 A ctive 15-2.6 mg Lozg directed. alum-mag Take 30 mL 0 Active hydroxide-simeth by mouth (MAALOX ADVANCED) every 6 200-200-20 mg/5 mL (six) hours suspension as needed for Indigestion . SITagliptin (JANUVIA) Take 1 90 tablet 1 Active 100 mg tablet by 0 tabletIndications: mouth Prediabetes daily. metFORMIN 500 mg Take 1 180 tablet 3 Ac tive tabletIndications: tablet by 0 Hypogonadism in male mouth 2 (two) times daily with meals. testosterone (ANDROGEL) Apply 2 75 g 3 Active 20.25 mg/1.25 gram Pump to 0 (1.62 %) gel area(s) pumpIndications: daily. Hypogonadism in male testosterone (ANDROGEL) Apply 2 75 g 3 Discontinued 20.25 mg/1.25 gram Pump to 9 20 ( Reorder) (1.62 %) gel area(s) pumpIndications: daily. Hypogonadism in male metFORMIN 500 mg Take 1 180 tablet 3 09/21/20 Di scontinued tabletIndications: tablet by 0 20 ( Reorder) Hypogonadism in male mouth 2 [...] with No / Unsure 09/21/2020 3:36 PM SCALE TESTER someone who was confirmed or suspected to have Coronavirus / COVID-19? documented as of this encounter Last Filed Vital Signs Vital Sign Reading Time Taken Comments Blood Pressure 114/60 09/21/2020 3:47 PM SCALE TESTER Pulse 71 09/21/2020 3:47 PM SCALE TESTER Temperature - - Respiratory Rate 16 09/21/2020 3:47 PM SCALE TESTER Oxygen Saturation - - Inhaled Oxygen Concentration - - Weight 131.4 kg (289 lb 9.6 oz) 09/21/2020 3:47 PM SCALE TESTER Height 188 cm (6' 2") 09/21/2020 3:47 PM SCALE TESTER Body Mass Index 37.18 09/21/2020 3:47 PM SCALE TESTER documented in this encounter Patient Instructions Patient InstructionsToy Renae MD - 09/21/2020 4:00 PM SCALE TESTER Your hemoglobin A1c has crossed over to 9.0%. Begin Januvia 100 mg daily. Continue metformin 500 mg twice daily. Work on improving your eating habits, and start walking more once you recover from your ablation. Restart Androgel 2 pump depressions daily. E TESTER documented in this encounter Progress Notes Toy Renae MD - 09/21/2020 4:00 PM CST Chief Complaint Patient presents with Follow-up Diabetes Mellitus II HPI Patient is a 55 year old man who is here today for f/u on hypogonadism and prediabetes. He is off of Androgel due to Afib that's uncontrolled. He recently had EP studies and had and ablation. He denies difficulty urinating or emotional lability. He does note lack of well-being. Prediabetes: has been fairly controlled with metformin 500mg BID. BGs are in the mid 100s. Hypoglycaemia isn't a feature. No polys or blurred visiion Last Lab Results Health Maintenance Due No results found for: HGBA1C, [id number] There are no Diabetes related preventive care reminders to display. Previous Pneumococcal / Influenza Immunizations No immunizations on file. Recent Pararescue Manager Visits None Recent Ophthalmology Visits None No results found for: CREAT No results found for: ALBU No results found for: CHOL No results found for: TRIG No results found for: LDL HISTORY Past Medical History: Diagnosis Date Atrial fibrillation Diabetes mellitus Hypertension Hypogonadism in male Low back pain Sleep apnea Family History Problem Relation Age of Onset Diabetes Mother Heart Father Past Surgical History: Procedure Laterality Date HERNIA REPAIR RADIOFREQUENCY ABLATION PROC 2020 SHOULDER ARTHROPLASTY SPINE SURGERY Social History Socioeconomic History Marital status: Spouse name: Not on file Number of children: Not on file Years of education: Not on file Highest education level: Not on file Occupational History Not on file Social Needs Financial resource strain: Not on file Food insecurity Worry: Not on file Inability: Not on file Transportation needs Medical: Not on file Non-medical: Not on file Tobacco Use Smoking status: Current Every Day Smoker Packs/day: 1.00 Years: 30.00 Pack years: 30.00 Types: Cigarettes Start date: 12/17/1988 Smokeless tobacco: Never Used Substance and Sexual Activity Alcohol use: Yes Alcohol/week: 6.0 standard drinks Types: 6 Cans of beer per week Drug use: Never Sexual activity: Yes Partners: Female Lifestyle Physical activity Days per week: Not on file Minutes per session: Not on file Stress: Not on file Relationships Social connections Talks on phone: Not on file Gets together: Not on file Attends restorationism service: Not on file Active member of club or organization: Not on file Attends meetings of clubs or organizations: Not on file Relationship status: Not on file Intimate partner violence Fear of current or ex partner: Not on file Emotionally abused: Not on file Physically abused: Not on file Forced sexual activity: Not on file Other Topics Concern Not on file Social History Narrative Lives at home with REVIEW OF SYSTEMS Constitutional: +weight change, + [...] polyphagia and denies polyuria. PHYSICAL EXAM BP 114/60 (BP Location: Left arm, Patient Position: Sitting, BP CUFF SIZE: Adult Large) | Pulse 71| Resp 16 | Ht 6' 2" (1.88 m) | Wt 289 lb 9.6 oz (131.4 kg) | BMI 37.18 kg/m Gen: Alert, NAD Pulm: CTA Cor: RRR Ext: No cyanosis or oedema. Labs: Free Testosterone 22.9 Total T 115; 25OHD 21; A/C ratio WNL; lipid: Chol 208 HDL 45 TG 98 LDL 142 NHDL 163; CMP WNL; TSH 0.78 CBC WBC 11.2 Hb 14.5 plt 200 ASSESSMENT/PLAN ICD-10-CM ICD-9-CM 1. Prediabetes R73.03 790.29 2. Hypogonadism in male E29.1 257.2 3. Hyperlipidemia, unspecified hyperlipidemia type E78.5 272.4 Has most likely crossed over into type 2 diabetes. Will confirm next visit. Add Januvia 100 mg daily. Continue metformin at the present dosage. Emphasized lifestyle modifications. Restart Androgel 1.62% 2 pump depressions daily. documented in this encounter Plan of Treatment Date Type Specialty Care Team Description 01/25/2021 Office Visit Endocrinology Diabetes & Toy Fenton MD Metabolism [address] [address] [phone] Name Type Priority Associated Diagnoses Order S chedule GLYCOSYLATED HEMOGLOBIN LAB Routine Prediabetes Expe cted: 09/21/2020, (A1C) Expires: 2020 Health Maintenance Due Date Last Done Comments HEPATITIS C (HCV) SCREEN 1965 PNEUMOCOCCAL 0-64 YEARS COMBINED SERIES (1 of 1 - 1970 PPSV23) Depression Screening 1976 DTaP,Tdap,and Td Vaccines (1 - Tdap) 1983 COLON CANCER SCREENING ANNUAL FIT/FOBT 2014 COLON CANCER SCREENING FIT DNA EVERY 3 YEARS 2014 COLON CANCER SCREENING SIGMOIDOSCOPY EVERY 5 YEARS 2014 COLONOSCOPY 2014 Colorectal Cancer Screening 2014 Zoster Recombinant Vaccine (SHINGRIX) (2 of 2) 03/25/2019 0 01/28/2019 LUNG CANCER SCREEN: Recommended for age 55-80 with 30 2019 + pack year history INFLUENZA VACCINE (#1) 2020 documented as of this encounter Procedures Procedure Name Priority Date/Time Associated Diagnosis Comme nts POCT HEMOGLOBIN A1C Routine 09/21/2020 4:24 Prediabetes Resu lts for this TEST PM SCALE TESTER procedure are i n the results section. documented in this encounter Results POCT HEMOGLOBIN A1C TEST (09/21/2020 4:24 PM SCALE TESTER) Pathologist Sig nature POCT HBA1C 6.9 (A) 4 - 6 % Specimen Blood - CAPILLARY documented in this encounter Visit Diagnoses Diagnosis Prediabetes - Primary Other abnormal glucose Hypogonadism in male Hyperlipidemia, unspecified hyperlipidem ia type documented in this encounter documented as of this encounter
--- OUTSIDE RECORDS SUMMARY | 2020-10-09 05:49 | XMS REPORT | Summary of Care ---
:1965 Author Organization [facility] Address [address] [place] [address] Care Team Providers Name Role Phone Frankie Rodriguez Primary Care Provider Reason for Visit Reason Comments Follow-up Diabetes Mellitus II Encounter Details Date Type Department Care Team Description 09/21/2020 Office Visit [facility] Toy Renae, Prediabet es (Primary Dx); Endocrinology- Hypogonadism in male; [address] Hyperlipidemia, unspecified hyperlipidem ia type [address] [address] [address], [address] [place] [address] [place], [place] [phone] [address] [phone] Allergies Active Allergy Reactions Severity Noted Date [...] with No / Unsure 09/21/2020 3:36 PM SNUFF MAKER someone who was confirmed or suspected to have Coronavirus / COVID-19? documented as of this encounter Last Filed Vital Signs Vital Sign Reading Time Taken Comments Blood Pressure 114/60 09/21/2020 3:47 PM SNUFF MAKER Pulse 71 09/21/2020 3:47 PM SNUFF MAKER Temperature - - Respiratory Rate 16 09/21/2020 3:47 PM SNUFF MAKER Oxygen Saturation - - Inhaled Oxygen Concentration - - Weight 131.4 kg (289 lb 9.6 oz) 09/21/2020 3:47 PM SNUFF MAKER Height 188 cm (6' 2") 09/21/2020 3:47 PM SNUFF MAKER Body Mass Index 37.18 09/21/2020 3:47 PM SNUFF MAKER documented in this encounter Patient Instructions Patient InstructionsToy Renae MD - 09/21/2020 4:00 PM SNUFF MAKER Your hemoglobin A1c has crossed over to 9.0%. Begin Januvia 100 mg daily. Continue metformin 500 mg twice daily. Work on improving your eating habits, and start walking more once you recover from your ablation. Restart Androgel 2 pump depressions daily. F MAKER documented in this encounter Progress Notes Toy [...] Maintenance Due No results found for: HGBA1C, [id number] There are no Diabetes related preventive care reminders to display. Previous Pneumococcal / Influenza Immunizations No immunizations on file. Recent Vice President Of News Visits None Recent Ophthalmology Visits None No [...] file Gets together: Not on file Attends buddhist service: Not on file Active member of [...] & Toy Fenton MD Metabolism [address] [address] [phone] Name Type Priority Associated Diagnoses Order S [...] Prediabetes Resu lts for this TEST PM SNUFF MAKER procedure are i n the results section. documented in this encounter Results POCT HEMOGLOBIN A1C TEST (09/21/2020 4:24 PM SNUFF MAKER) Pathologist Sig nature POCT HBA1C 6.9 (A) 4 - 6 % Specimen Blood - CAPILLARY documented in this encounter Visit Diagnoses Diagnosis Prediabetes - Primary Other abnormal glucose Hypogonadism in male Hyperlipidemia, unspecified hyperlipidem ia type documented in this encounter documented as of this encounter
[2020-10-09 06:32] LABS: Absolute Lymphocytes (CBC) 2.6 K/uL (0.7-4.9); Basophils % 0.7 % (0-1.3); Hematocrit 41.2 % (39.6-49.0); Lymphocytes % 29.2 % (15.3-44.8); MPV 9.4 fL (7.6-11.3); RBC Red Blood Cell Count 4.73 M/uL (4.33-5.43)
[2020-10-09 06:36] LABS: Protime INR 1.6
[2020-10-09] MEDS ORDERED: NA CHLORIDE 0.9% 1,000 ML ONE (06:42)
[2020-10-09] MEDS ORDERED: FAMOTIDINE 20 MG/2 ML VIAL IV ONE (06:43)
[2020-10-09 06:49] LABS: ALT/SGPT 29 U/L (12-78); AST/SGOT 12 U/L (15-37); Albumin 3.9 g/dL (3.4-5.0); Alkaline Phosphatase 103 U/L (45-117); BUN Blood Urea Nitrogen 15 mg/dL (7-18); Bicarbonate 27 mmol/L (21-32); Bilirubin Direct 0.1 mg/dL (0-0.2); Bilirubin Total 0.6 mg/dL (0.2-1.0); Glucose Level 135 mg/dL (74-106); Magnesium 2.3 mg/dL (1.8-2.4); NT PRO-BNP 76 pg/mL (<125); Potassium 3.6 mmol/L (3.5-5.1); Protein, Total 7.7 g/dL (6.4-8.2); Sodium Level 139 mmol/L (136-145); Troponin (Emerg Dept Use Only) < 0.02 ng/mL (0.0-0.045)
--- NOTE | 2020-10-09 09:42 | RAD REPORT ---
EXAM DESCRIPTION: RAD - Shoulder Right 2 View - 10/09/2020 9:33 am CLINICAL HISTORY: Right shoulder pain FINDINGS: No fracture or dislocation is seen. Mild to moderate narrowing AC joint.
--- NOTE | 2020-10-09 10:14 | RAD REPORT ---
EXAM DESCRIPTION: CT - Angio Aorta For Dissection - 10/09/2020 9:52 am CLINICAL HISTORY: . Chest and abdominal pain COMPARISON: CT abdomen March 2020 TECHNIQUE: Computed tomography angiography of the chest, abdomen pelvis were obtained. 145 cc Isovue 370 was administered intravenously. Initially 70 cc was administered intravenously. The patient comp lained of pain so the technologist stock injection. She examined the IV site. No extravasation is not ed. She started a new IV site and administered 75 cc of contrast. The opacification of the abdominal aorta and iliac arteries is mildly suboptimal. Coronal and sagittal reconstruction were performed. MIP 3D reconstruction was performed All CT scans are performed using dose optimization technique as appropriate and may include automated exposure control or mA/KV adjustment according to patient size. FINDINGS: . An aortic dissection is not seen. An aortic aneurysm is not displayed. The celiac, SMA and RYAN are patent . A lung consolidation is not present. A pericardial effusion is not seen. A pleural effusion is not n oted. Fatty liver Spleen, pancreas adrenals kidneys demonstrate no significant abnormality. The appendix is normal. There no evidence diverticulitis. Degenerative changes involve the vertebral endplate of L2 and L3. IMPRESSION: Negative for an aortic dissection.
--- NOTE | 2020-10-09 10:15 | RAD REPORT ---
EXAM DESCRIPTION: US - Abdomen Exam Limited - 10/09/2020 9:02 am CLINICAL HISTORY: Abdominal pain. COMPARISON: None. FINDINGS: Limited evaluation the gallbladder neck. The gallbladder wall is not thickened. A gallston e is not seen. Suboptimal evaluation of the common bile duct secondary to body habitus and overlying bowel gas Fatty liver. IMPRESSION: No gross gallbladder abnormality
--- NOTE | 2020-10-09 10:34 | ER ---
Nurse's Notes [facility] Name: Jose Francisco Machado Age: 55 yrs Sex: Male : 1965 Arrival Date: 10/09/2020 Time: 05:47 Bed 5 Private MD: Diagnosis: Muscle spasm-left sided Presentation: 10/09 05:54 Chief complaint: Patient states: Right side pain, under ribs, radiates to the right sg shoulder, described as sharp and stabbing. pt denies N/V/D/Fever/Chills at this time for triage. pt denies recent injury or trauma. Coronavirus screen: Client denies travel out of the [place] in the last 14 days. At this time, the client does not indicate any symptoms associated with coronavirus-19. Ebola Screen: Patient negative for fever greater than or equal to 101.5 degrees Fahrenheit, and additional compatible Ebola Virus Disease symptoms Patient denies exposure to infectious person. Patient denies travel to an Ebola-affected area in the 21 days before illness onset. No symptoms or risks identified at this time. Initial Sepsis Screen: Does the patient meet any 2 criteria? No. Patient's initial sepsis screen is negative. Does the patient have a suspected source of infection? No. Patient's initial sepsis screen is negative. Risk Assessment: Do you want to hurt yourself or someone else? Patient reports no desire to harm self or others. Onset of symptoms was October 09, 2020. Care prior to arrival: None. Transition of care: patient was not received from another setting of care. 05:54 Method Of Arrival: Ambulatory 05:54 Acuity: SUSI 3 sg Historical: - Allergies: 05:57 Cipro; sg 05:57 Clindamycin; sg 05:57 Percocet; sg 05:57 Vicodin (rash); sg - PMHx: 05:57 Atrial Fib; Diabetes - NIDDM; Hypertension; sg - PSHx: 05:57 Cardiac Albation; Right Shoulder Sx; Hernia repair; Cervical Fusion; Lower Discectomy; sg - Immunization history:: Adult Immunizations up to date. - Social history:: Smoking status: Patient reports the use of cigarette tobacco products, smokes one pack cigarettes per day. - Family history:: not pertinent. Screenin:59 Abuse screen: Denies threats or abuse. Nutritional screening: No deficits noted. ea Tuberculosis screening: No symptoms or risk factors identified. Fall Risk None identified. Assessment: 05:59 General: Appears uncomfortable, Behavior is appropriate for age. Pain: Complains of ea pain in right upper quadrant. Neuro: Level of Consciousness is awake, alert, obeys commands, Oriented to person, place, time, situation. Cardiovascular: Patient's skin is warm and dry. Respiratory: Airway is patent Respiratory effort is even, unlabored, Respiratory pattern is regular, symmetrical. Derm: Skin is pink, warm \T\ dry. 06:37 Reassessment: patient took his home meds (metoprolol and Afib medicine) in ED. provider mg2 informed. 07:44 Reassessment: Patient appears in no apparent distress at this time. Patient and/or tw2 family updated on plan of care and expected duration. Pain level reassessed. Patient is alert, oriented x 3, equal unlabored respirations, skin warm/dry/pink. 09:04 Reassessment: Patient appears in no apparent distress at this time. Patient and/or tw2 family updated on plan of care and expected duration. Pain level reassessed. Patient is alert, oriented x 3, equal unlabored respirations, skin warm/dry/pink. 09:34 Reassessment: pt in CT at this time. tw2 10:25 Reassessment: Patient appears in no apparent distress at this time. Patient and/or tw2 family updated on plan of care and expected duration. Pain level reassessed. Patient is alert, oriented x 3, equal unlabored respirations, skin warm/dry/pink. Vital Signs: 05:58 BP 169 / 97; Pulse 85; Resp 18; Temp 97.5; Pulse Ox 98% ; ea 07:00 BP 153 / 89; Pulse 74; Resp 16; Pulse Ox 97% on R/A; tw2 07:44 BP 158 / 86; Pulse 69; Resp 17; Pulse Ox 95% on R/A; tw2 09:04 BP 148 / 83; Pulse 73; Resp 19; Pulse Ox 96% on R/A; tw2 10:20 BP 139 / 85; Pulse 69; Resp 18; Pulse Ox 97% on R/A; tw2 ED Course: 05:47 Patient arrived in ED. bp1 05:54 Arm band placed on. sg 05:55 Triage completed. sg 05:59 Patient has correct armband on for positive identification. Bed in low position. Call ea light in reach. Side rails up X 1. manager monitoring on. Pulse ox on. NIBP on. 06:07 Inserted saline lock: 20 gauge in right forearm, using aseptic technique. Blood rr5 collected. 06:18 Mckinley Rasmussen MD is Attending Physician. shira 07:10 Attending Physician role handed off by Mckinley Rasmussen MD ma 07:10 Keaton Villar MD is Attending Physician. ma 07:42 Jeannie Lyons, RN is Primary Nurse. tw2 09:37 Abdomen Exam Limited In Process Unspecified. EDMS 09:52 Angio Aorta For Dissection In Process Unspecified. EDMS 10:38 Chest Single View In Process Unspecified. EDMS 11:03 No provider procedures requiring assistance completed. IV discontinued, intact, jl7 bleeding controlled, No redness/swelling at site. Pressure dressing applied. Administered Medications: 06:32 Drug: NS 0.9% 1000 ml Route: IV; Rate: 125 ml/hr; Site: right forearm; mg2 11:05 Follow up: IV Status: Completed infusion jl7 06:32 Drug: Pepcid 20 mg Route: IVP; Site: right forearm; mg2 09:04 Follow up: Response: No adverse reaction tw2 Outcome: 10:33 Discharge ordered by . [facility] 11:03 Discharged to home ambulatory. jl7 11:03 Condition: stable 11:03 Discharge instructions given to patient, Instructed on discharge instructions, follow up and referral plans. medication usage, Demonstrated understanding of instructions, follow-up care, medications, Prescriptions given X 1. 11:03 Patient left the ED. jl7 Signatures: Dispatcher [employer] EDMS Kristofer Cantu, RN Mckinley Brenner MD MD cha Wise, Tara, RN RN tw2 Victorina Perales RN MERCEDES jl7 Ayesha Domingo RN RN ea Alzahri, Mohammad, MD MD sc2 Venancio Bennett, [facility] LONG [facility] Seth Goetz, RN RN rr5 Edna Seth bp1
--- NOTE | 2020-10-09 10:34 | EDPHYS ---
Physician Documentation [facility] Name: Jose Francisco Machado Age: 55 yrs Sex: Male : 1965 Arrival Date: 10/09/2020 Time: 05:47 Bed 5 Private MD: ED Physician Keaton Villar HPI: 10/09 06:28 This 55 yrs old Male presents to ER via Ambulatory with complaints of Side shira Pain, Shoulder Pain. 06:28 The patient or guardian complains of decreased range of motion, pain. right shoulder shira and right trapezius. Context: The problem was sustained at work. 06:28 Onset: The symptoms/episode began/occurred just prior to arrival, this morning. shira Modifying factors: the symptoms are alleviated by remaining still, The symptoms are aggravated by movement, deep breaths. Associated signs and symptoms: The patient has no apparent associated signs or symptoms. The patient or guardian reports chest pain that is located primarily in the anterior chest wall, right. Onset: this morning. The patient presents with abdominal pain in the right upper quadrant. Onset: The symptoms/episode began/occurred this morning. The pain does not radiate. Historical: - Allergies: 05:57 Cipro; sg 05:57 Clindamycin; sg 05:57 Percocet; sg 05:57 Vicodin (rash); sg - PMHx: 05:57 Atrial Fib; Diabetes - NIDDM; Hypertension; sg - PSHx: 05:57 Cardiac Albation; Right Shoulder Sx; Hernia repair; Cervical Fusion; Lower Discectomy; sg - Immunization history:: Adult Immunizations up to date. - Social history:: Smoking status: Patient reports the use of cigarette tobacco products, smokes one pack cigarettes per day. - Family history:: not pertinent. ROS: 06:28 Constitutional: Negative for fever, chills, and weight loss, Eyes: Negative for injury, shira pain, redness, and discharge, ENT: Negative for injury, pain, and discharge, Neck: Negative for injury, pain, and swelling, Cardiovascular: Negative for chest pain, palpitations, and edema, Respiratory: Negative for shortness of breath, cough, wheezing, and pleuritic chest pain, Back: Negative for injury and pain, : Negative for injury, bleeding, discharge, and swelling, MS/Extremity: Negative for injury and deformity, Skin: Negative for injury, rash, and discoloration, Neuro: Negative for headache, weakness, numbness, tingling, and seizure, Psych: Negative for depression, anxiety, suicide ideation, homicidal ideation, and hallucinations, Allergy/Immunology: Negative for hives, rash, and allergies, Endocrine: Negative for neck swelling, polydipsia, polyuria, polyphagia, and marked weight changes, Hematologic/Lymphatic: Negative for swollen nodes, abnormal bleeding, and unusual bruising. 06:28 Abdomen/GI: Positive for abdominal pain, abdominal distension, of the right upper quadrant. Exam: 06:28 Constitutional: This is a well developed, well nourished patient who is awake, alert, shira and in no acute distress. Head/Face: Normocephalic, atraumatic. Eyes: Pupils equal round and reactive to light, extra-ocular motions intact. Lids and lashes normal. Conjunctiva and sclera are non-icteric and not injected. Cornea within normal limits. Periorbital areas with no swelling, redness, or edema. ENT: Nares patent. No nasal discharge, no septal abnormalities noted. Tympanic membranes are normal and external auditory canals are clear. Oropharynx with no redness, swelling, or masses, exudates, or evidence of obstruction, uvula midline. Mucous membranes moist. Neck: Trachea midline, no thyromegaly or masses palpated, and no cervical lymphadenopathy. Supple, full range of motion without nuchal rigidity, or vertebral point tenderness. No Meningismus. Chest/axilla: Normal chest wall appearance and motion. Nontender with no deformity. No lesions are appreciated. Cardiovascular: Regular rate and rhythm with a normal S1 and S2. No gallops, murmurs, or rubs. Normal PMI, no JVD. No pulse deficits. Respiratory: Lungs have equal breath sounds bilaterally, clear to auscultation and percussion. No rales, rhonchi or wheezes noted. No increased work of breathing, no retractions or nasal flaring. Abdomen/GI: Soft, non-tender, with normal bowel sounds. No distension or tympany. No guarding or rebound. No evidence of tenderness throughout. Back: No spinal tenderness. No costovertebral tenderness. Full range of motion. Male : Normal genitalia with no discharge or lesions. Skin: Warm, dry with normal turgor. Normal color with no rashes, no lesions, and no evidence of cellulitis. MS/ Extremity: Pulses equal, no cyanosis. Neurovascular intact. Full, normal range of motion. Neuro: Awake and alert, GCS 15, oriented to person, place, time, and situation. Cranial nerves II-XII grossly intact. Motor strength 5/5 in all extremities. Sensory grossly intact. Cerebellar exam normal. Normal gait. Psych: Awake, alert, with orientation to person, place and time. Behavior, mood, and affect are within normal limits. 06:35 ECG was reviewed by the Attending Physician. shira 07:04 Musculoskeletal/extremity: DVT Exam: No signs of deep vein thrombosis. no pain, no shira swelling, no tenderness, negative Homans' sign noted on exam, no appreciated bluish discoloration, no erythema, no increased warmth. Vital Signs: 05:58 BP 169 / 97; Pulse 85; Resp 18; Temp 97.5; Pulse Ox 98% ; ea 07:00 BP 153 / 89; Pulse 74; Resp 16; Pulse Ox 97% on R/A; tw2 07:44 BP 158 / 86; Pulse 69; Resp 17; Pulse Ox 95% on R/A; tw2 09:04 BP 148 / 83; Pulse 73; Resp 19; Pulse Ox 96% on R/A; tw2 10:20 BP 139 / 85; Pulse 69; Resp 18; Pulse Ox 97% on R/A; tw2 MDM: 06:19 Patient medically screened. shira 06:30 Differential diagnosis: tendonitis, abnormal EKG, anxiety, coronary artery disease shira chest wall pain, cholecystitis, Cholelithiasis costochondritis, pancreatitis, peptic ulcer disease, pleurisy, pulmonary embolus, stable angina, thoracic aortic disection, unstable angina, AAA. HEART Score: History: Slightly Suspicious (0), ECG: Normal (0), Age: > 45 and < 65 years (1), Risk Factors: > or = 3 Risk factors for atherosclerotic disease (2), [Hypertension] [DM] [+ Family HX] [Obesity] Troponin: < or = 1 x Normal Limit (0). The patient was given aspirin in the Emergency Department. The patient's deep vein thrombosis risk score was calculated as follows: Total Score: 0. This patient was found to be at low risk for a deep vein thrombosis by using the Well's assessment criteria. The patient's pulmonary embolism risk score was calculated as follows: Total Score: 0-2 points. This patient was found to be at low risk for a pulmonary embolism by using the Well's assessment criteria. TAMERA Risk Score: TOTAL SCORE = 0. Data reviewed: vital signs, nurses notes, lab test result(s), EKG, radiologic studies, CT scan, plain films, ultrasound. Data interpreted: brand engineer: rate is 85 beats/min, rhythm is regular, Pulse oximetry: on room air is 98 %. Test interpretation: by ED physician or midlevel provider: ECG, plain radiologic studies. Counseling: I had a detailed discussion with the patient and/or guardian regarding: the historical points, exam findings, and any diagnostic results supporting the discharge/admit diagnosis, the presence of at least one elevated blood pressure reading (>120/80) during this emergency department visit, lab results, radiology results. 10/09 05:58 Order name: Basic Metabolic Panel ea 10/09 05:58 Order name: CBC with Diff ea 10/09 05:58 Order name: LFT's ea 10/09 05:58 Order name: Magnesium ea 10/09 05:58 Order name: NT PRO-BNP ea 10/09 05:58 Order name: PT-INR ea 10/09 05:58 Order name: Troponin (emerg Dept Use Only) ea 10/09 05:58 Order name: Lipase ea 10/09 06:27 Order name: Urine Culture [facility] 10/09 07:31 Order name: Urine Dipstick--Ancillary (enter results) 10/09 09:22 Order name: Basic Metabolic Panel EDAK 10/09 09:22 Order name: Liver (Hepatic) Function EDAK 10/09 09:22 Order name: Troponin (Emerg Dept Use Only) EDAK 10/09 09:22 Order name: NT PRO-BNP EDAK 10/09 05:58 Order name: EKG; Complete Time: 12:42 ea 10/09 05:58 Order name: Cardiac monitoring; Complete Time: 05:58 ea 10/09 05:58 Order name: EKG - Nurse/Tech; Complete Time: 06:09 ea 10/09 09:22 Order name: Magnesium EDAK 10/09 09:22 Order name: CBC with Automated Diff EDAK 10/09 09:22 Order name: Protime (+INR) EDMS 10/09 09:37 Order name: Abdomen Exam Limited; Complete Time: 10:30 EDAK 10/09 09:39 Order name: Shoulder Right 2 View; Complete Time: 09:58 EDAK 10/09 09:44 Order name: Angio Aorta For Dissection; Complete Time: 10:30 EDMS 10/09 10:08 Order name: Chest Single View EDAK 10/09 05:58 Order name: IV Saline Lock; Complete Time: 06:09 ea 10/09 05:58 Order name: Labs collected and sent; Complete Time: 06:09 ea 10/09 05:58 Order name: O2 Per Protocol; Complete Time: 05:58 ea 10/09 05:58 Order name: O2 Sat Monitoring; Complete Time: 05:58 ea 10/09 06:27 Order name: Urine Dipstick-Ancillary (obtain specimen); Complete Time: 07:30 shira EC:35 Rate is 77 beats/min. Rhythm is regular. QRS [place] is Normal. TN interval is normal. QRS shira interval is normal. QT interval is normal. No Q waves. T waves are Normal. Clinical impression: NSR w/ Non-specific ST/T Changes and No evidence of ischemia. Interpreted by me. Reviewed by me. Administered Medications: 06:32 Drug: NS 0.9% 1000 ml Route: IV; Rate: 125 ml/hr; Site: right forearm; mg2 11:05 Follow up: IV Status: Completed infusion jl7 06:32 Drug: Pepcid 20 mg Route: IVP; Site: right forearm; mg2 09:04 Follow up: Response: No adverse reaction tw2 Disposition: 10/09/20 10:33 Discharged to Home. Impression: Muscle spasm - left sided. - Condition is Stable. - Discharge Instructions: Muscle Pain, Adult. - Prescriptions for Cyclobenzaprine 10 mg Oral Tablet - take 1 tablet by ORAL route every 8 hours As needed; 30 tablet. - Work release form, SBAR form, Medication Reconciliation Form, Thank You Letter, Antibiotic Education, Prescription Opioid Use form. - Follow up: Private Physician; When: Tomorrow; Reason: If symptoms return, Continuance of care. Signatures: Dispatcher [facility] Kristofer Cantu RN RN sg Anderson, Corey, MD MD cha Leal, Jahala, RN RN jl7 Ayesha Domingo RN Keaton Hamilton ea, MD MD ma2 Venancio Bennett RN RN mg2 Jeannie Lyons RN tw2 Corrections: (The following items were deleted from the chart) 11:03 10:33 10/09/2020 10:33 Discharged to Home. Impression: Muscle spasm - left sided. jl7 Condition is Stable. Forms are SBAR form, Work release form, Medication Reconciliation Form, Thank You Letter, Antibiotic Education, Prescription Opioid Use. Follow up: Private Physician; When: Tomorrow; Reason: If symptoms return, Continuance of care. ma2
--- NOTE | 2020-10-09 10:46 | RAD REPORT ---
EXAM DESCRIPTION: Donna Single View10/09/2020 10:39 am CLINICAL HISTORY: Chest pain COMPARISON: March 2020 FINDINGS: The lungs appear clear of acute infiltrate. The heart is normal size IMPRESSION: No acute abnormalities displayed
[2020-10-09 13:40] LABS: Urine Blood TRACE (NEG); Urine Glucose NEGATIVE (NEG); Urine Protein NEGATIVE (NEG); Urine pH 5.5 (5.0-7.0)
--- NOTE | 2020-10-10 07:18 | EKG ---
Test Date: 2020-10-09 Test Time: 06:04:51 Pipe Or Steam Fitter Furnace Installer: LOTTIE MEASUREMENT RESULTS: Intervals: Rate: 77 [place]: 152 QRSD: 102 QT: 362 QTc: 409 [place]: P: 57 [place]: 152 QRS: 35 T: 63 INTERPRETIVE STATEMENTS: Normal sinus rhythm Normal ECG Compared to ECG 03/11/2020 06:44:53 No significant changes Electronically Signed On 10-10-20 07:09:15 DRY KILN FEEDER by Ryan Dash
== END 2020-10-09 11:03 | disposition home or self-care (01) ==
LOC: ER 05:45
DX: M62.838 Other muscle spasm (principal); M25.511 Pain in right shoulder; F17.210 Nicotine dependence, cigarettes, uncomplicated; I10 Essential (primary) hypertension; Z88.1 Allergy status to other antibiotic agents; Z88.3 Allergy status to other anti-infective agents; Z88.5 Allergy status to narcotic agent
CPT/HCPCS: 96361; 93005; 85025; 80048; 36415; 83735; 85610; 80076; 81003; 84484; 83880; 71275; 74175; 71045; 73030; 76705; 96374; 99284; Q9967; J7030

== ENCOUNTER 2021-04-22 09:52 | Emergency (ER) | payer OTHER ==
--- OUTSIDE RECORDS SUMMARY | 2021-04-22 09:56 | XMS REPORT | Continuity of Care Document ---
:1965 Author Organization [facility] t Address [address] [place] [address] Care Team Providers Name Role Phone Asked, Pcp Primary Care Physician Unavailable Batool HAMILTON, Carol Attending Clinician Doctor Unassigned, Name Attending Clinician Unavailable Efrem HAMILTON Attending Clinician Jak Wen MD Attending Clinician Heaven Vergara Attending Clinician EFREM Admitting Clinician Unavailable Payers Payer Name Policy Type Policy Effective Date Expiration Date Sour ce Number AETNAAETNA [id number] 2018 Anthony HMO,POS,EPO, 00:00:00 Dorian NAIK/[id number]/ [place] Problems Condition Condition Condition Status Onset Resolution Last Treating Co mments Source Name Details Category Date Date Treatment Clinician Date Atrial Atrial Disease Active 2019-11 Thomsa fibrillati fibrillati 1-13 Me thodi on on 00:00: st 00 Allergies, Adverse Reactions, Alerts Allergy Allergy Status Severity Reaction(s) Onset Inactive Treating Comm ents Source Name Type Date Date Clinician Ciproflo Propensi Active Rash 2019-11 [place] xacin ty to 12 Methodi adverse 00:00: st reaction 00 s to drug Social History Social Habit Start Date Stop Date Quantity Comments Source Cigarettes smoked 2020-09-17 2020-09-17 William Alarcon current (pack per 00:00:00 00:00:00 day) - Reported Tobacco Comment 2020-09-14 2020-09-14 "on and off Thomas Judaism 00:00:00 00:00:00 since 17 year old" Sex [birth year] William schaferodist 00:00:00 00:00:00 Smoking Status Start Date Stop Date Source Current every day smoker 2020-09-17 00:00:00 Wilbur ston [facility] Medications Ordered Filled Start Stop Current Ordering [...] (two) times a day with meals. alum-mag 2019-11- No 30mL Q.25D Take 30 mL [place] hydroxide-s 11-15 by mouth 4 M ethodi imeth 00:00: 23:59 (four) st (MAALOX 00 :00 times a PLUS) day before 200-200-20 meals and mg/5 mL nightly suspension for 30 days. benzocaine- 2019-11- No 1{lozen Q2H Apply 1 Anthony menthoL 11-15 ge} lozenge to Metho di (CEPACOL 00:00: 23:[address] MAX) 15-3.6 00 :00 every 2 mg lozenge (two) hours as needed (sore throat) for up to 30 days. colchicine 2019-11- No .3mg Q.5D Take 0.5 [place] 0.6 mg 11-15 tablets Methodi tablet 00:00: 23:59 (0.[address] 00 :00 total) by mouth 2 (two) times a day as needed (post ablation chest pain) for up to 30 days. pantoprazol 2019-11- No 40mg Q.5D Take 1 Wilbur ston e 11-15 tablet (40 Methodi (PROTONIX) 00:00: 23:59 mg total) s t 40 MG EC 00 :00 by mouth 2 tablet (two) times a day for 30 days. Vital Signs Vital Name Observation Time Observation Value Comments Source Systolic blood 2020-09-15 08:18:00 130 mm[Hg] Yesica n Judaism pressure Diastolic blood 2020-09-15 08:18:00 79 mm[Hg] Harry on Judaism pressure Heart rate 2020-09-15 08:18:00 66 /min William Alarcon Body temperature 2020-09-15 07:47:52 37.11 Mariaelena [place] [facility] Oxygen saturation in 2020-09-15 07:47:52 95 /min William Alarcon Arterial blood by Pulse oximetry Respiratory rate 2020-09-15 04:36:02 20 /min Julia Alarcon Body weight 2020-09-15 04:36:02 130.228 kg William Alarcon BMI 2020-09-15 04:36:02 36.86 kg/m2 William Alarcon Body height 2020-09-14 05:50:00 188 cm William Alarcon Procedures Procedure Date / Time Performed Performing Clinician Sourc e HC COMPLETE BLD COUNT 2020-09-15 04:45:00 Manda Licona W/AUTO DIFF BASIC METABOLIC PANEL 2020-09-15 04:00:00 Manda Licona ESTIMATED GFR 2020-09-15 04:00:00 Manda Licona odist POC GLUCOSE 2020-09-14 11:08:00 Manda Licona odist ACTIVATED CLOTTING TIME 2020-09-14 10:50:00 Manda Licona Judaism ACTIVATED CLOTTING TIME 2020-09-14 10:45:00 Manda Licona EP COMPLETE EP STUDY W 2020-09-14 10:42:32 Manda Licona on Judaism ABLATION PULMONARY VEIN ACTIVATED CLOTTING TIME 2020-09-14 10:26:00 Manda Licona Judaism ACTIVATED CLOTTING TIME 2020-09-14 09:49:00 Manda Licona Judaism ACTIVATED CLOTTING TIME 2020-09-14 09:34:00 Manda Licona Judaism ACTIVATED CLOTTING TIME 2020-09-14 09:26:00 Manda Licona Judaism ACTIVATED CLOTTING TIME 2020-09-14 08:37:00 Manda Licona Judaism ARTERIAL LINE 2020-09-14 08:34:35 Cinthya Vergara Me thodist [place] AN ELECTIVE 2020-09-14 08:31:28 Cinthya Vergara Me thodist ENDOTRACHEAL AIRWAY [place] POC GLUCOSE 2020-09-14 06:45:00 Manda Licona odist TYPE AND SCREEN 2020-09-14 06:20:00 Manda Licona odist Plan of Care Planned Activity Planned Date Details Comments Source Future Scheduled 2021-06-02 INFLUENZA VACCINE Yesica Alarcon Test 00:00:00 [code = INFLUENZA VACCINE] Future Scheduled 2014 COLONOSCOPY SCREENING Ho chelo [facility] Test 00:00:00 [code = COLONOSCOPY SCREENING] Future Scheduled 2014 SHINGLES VACCINES [place] [facility] Test 00:00:00 (#1) [code = SHINGLES VACCINES (#1)] Future Scheduled 1982 Hepatitis C screening Jenaro whitney Judaism Test 00:00:00 (procedure) [code = 280753151] Future Scheduled 1976 COVID-19 VACCINE (1) Wilburmark klein [facility] Test 00:00:00 [code = COVID-19 VACCINE (1)] Encounters Start End Encounter Admission Attending Care Care Encounter Source Date/Time Date/Time Type Type Clinicians Facility Department ID 2021-02-15 2021-02-15 [facility] [id number]00 [facility]00[facility] 2021-01-31 2021-01-31 [facility] [id number] 00:00:00 00:00:00 Toy Gomez [id number] [place] [id number] Professenrique [id number] [address] 2021-01-29 2021-01-29 Orders Doctor HENRRY [id number] 00:00:00 00:00:00 Only Unassigned, TASIA [id number] [place] [facility] [id number] 2021-01-28 2021-01-28 Telephone Batool [facility] [id number] 00:00:00 00:00:00 Toy Gomez [id number] Jese [id number] Professio [id number] [address] 2021-01-25 2021-01-25 Office Batool [facility] [id number] 12:58:48 13:55:57 Visit Toy Gomez [id number] Jese [id number] Professio [id number] [address] 2021-01-25 2021-01-25 Ashley Renae [facility] [id number] 00:00:00 00:00:00 Toy Gomez [id number] [place] [id number] Walt [id number] [address] 2021-01-25 2021-01-25 Outpatient [facility] [id number] [facility]00 [facility] 2021-01-04 2021-01-04 Outpatient [facility] [id number] [facility]00 [facility] [place] 2020-09-14 2020-09-15 Outpatient MANDA LICONA [facility] [id number] Anthony 00:00:00 00:00:[address] Results Test Description Test Test Results Result Source Time Comments Comments Electrophysiology 2019-11 -Successful pulmonary veins Anthony procedure -13 isolation x4 with entrance and Judaism 11:12: exit block-Successful PWI 56 isolation-No arrhythmia induced with high-dose Isuprel despite aggressive stimulation. RECOMMENDATIONS:1. Bedrest for 4 hours after sheaths removal2. Restart Xarelto in 4 hours 3. Lasix 20 mg IV when patient in recovery 4. Admit for overnight observationDATE OF OPERATION: September 14, 2020 RN SUPPLEMENTAL: Manda Licona MD PREOPERATIVE DIAGNOSES:-Paroxysmal atrial muesgpwzlwgg-Zjckkrg-Zuiulgtsma e sleep apnea on [facility]-Frcnejdkekhe-Qnm-insulin-d ependent diabetes POSTOPERATIVE DIAGNOSES:-Paroxysmal atrial udyrbueqycap-Jghkznc-Xiuzpquieq e sleep apnea on GDTZ-Pnrcgbeiwavu-Twp-insulin-d ependent diabetes PROCEDURES PERFORMED:-Ultrasound guided vascular access-Afib ablation with PVI and [...] in the fasting state. The patient was prepared and draped in [...] femoral vein using ultrasound guidance without complication. A intracardiac echocardiography catheter (ICE) [...] medium curl Agilis sheath, through which a BarnebysTouch SF catheter, DF curve was advanced to the RA, and a Fast Anatomic Map (FAM) was done for the IVC, RA septum, fossa and SVC. A live wire duodecapolar diagnostic catheter was then advanced into the coronary sinus and lateral lateral cindy. Next, we turned out attention to left sided access.After titrating heparin drip to achieve an ACT > 350 sec, transseptal puncture was performed with Avenue long needle (requiring RF) using ICE guidance. [...] veins isolation. The left pulmonary veins were circumferentially isolated as a common os using RF ablation. Left veins were isolated from the first pass. The right pulmonary veins were circumferentially isolated as a common os using RF ablation. The right pulmonary veins were isolated from the first [...] this time case was successfully concluded. AH measured 91 ms and HV measured 48 ms. Post-procedure ICE showed no change. At this time, GA was stopped and patient was extubated; No immediate complications. Protamine was given at the end of the procedure. Sheaths were pulled in the lab and figure of eight suture was placed. Patient was transferred to the PACU in a stable condition. Arterial line 2019-11 Cinthya Vergara Anthony 11-1409/14/2020 8:35 AMArterial Judaism 08:34: linePerformed by: Ryan VergaraoAuthorized by: Jamin Wen MD Patient Location: [facility] Time: 09/14/2020 8:05 AMEnd Time: 09/14/2020 8:15 AMStaff: Anesthesiologist: Jamin Wen MD Resident/COOKIE PADDER/AA: Cinthya Vergara Performed by: Resident/COOKIE PADDER/AAPre-procedure: patient identified, IV checked, site and side [...] guidance used: Yes Post-procedure: Post-procedure: Sterile dressing applied Post procedure circulation, sensation, movement: Normal and unchangedNotes: Small hematoma after first attempt, pressure held. No hematoma after placement. Airway 2019-11 Jai Cinthya Campruelallison Anthony 11-1409/14/2020 8:34 AMAirway Judaism 08:31: Date/Time: 09/14/2020 8:09 28 AMPerformed by: Jamin Wen MDAuthorized by: Jamin Wen MD Location: ORUrgency: ElectiveDifficult Airway: No Anesthesiologist: Jamin Wen, MDResident/COOKIE PADDER/AA: Wing VergaraaPerformed by: anesthesiologistPreoxygenated with 100% O2: Yes C-spine Precautions Maintained Throughout: Yes Mask Ventilation: Easy maskFinal Airway Type: Endotracheal airwayFinal Endotracheal Airway: ETTCuffed: Yes Technique Used: Video laryngoscopyDevices/Methods Used in Placement: Intubating styletInsertion Site: OralBlade type: Glidescope.Laryngoscope Blade/Videolaryngoscope Blade Size: 4ETT Size (mm): 8.0Cuff at minimum occlusion pressure: Yes Measured from: LipsETT to Lips (cm): 23Placement Verified by: CO2 detection and direct visualization Laryngoscopic view: Grade I - full view of glottisRapid Sequence Induction (RSI): No Modified RSI: No Number of Attempts at Approach: 1 Preoxygenation times five minutes on 100% FiO2. Smooth IV induction. Eyes taped after loss of eyelash reflex. Easy mask ventilation without OPA. DL times 1 with Glidescope 4 (elective use of glidescope due to neck pain, numbness, and tingling), Grade 1 view. ETT passed atraumatically through vocal cords. Cuffed to seal. Positive chest rise, positive mist, positive EtCO2. ETT taped to secure. No damage to lips, teeth, gums or oropharynx. VSS.
--- NOTE | 2021-04-22 11:08 | EDPHYS ---
Physician Documentation [facility] Name: Jose Francisco Machado Age: 55 yrs Sex: Male : 1965 Arrival Date: 04/22/2021 Time: 09:55 Bed 23 Private MD: ED Physician Keaton Villar HPI: 04/22 11:05 This 55 yrs old Male presents to ER via Wheelchair with complaints of Back ma2 Pain, Leg Pain. 11:05 The patient presents with pain that is chronic. Onset: The symptoms/episode ma2 began/occurred gradually, 2 day(s) ago. Associated signs and symptoms: Pertinent negatives: abdominal pain, chest pain, constipation, dysuria, fever, headache, hematuria, incontinence, nausea, numbness, tingling, urinary retention, vomiting, weakness. Severity of symptoms: At their worst the symptoms were mild, in the emergency department the symptoms are unchanged. The patient has experienced similar episodes in the past. Historical: - Allergies: 10:06 Cipro; ll1 10:06 Percocet; ll1 - Home Meds: 10:56 metformin 500 mg Oral tab 1 tab 2 times per day [Active]; valsartan 160 mg oral tab 1 iw tab once daily [Active]; Januvia 100 mg oral tab 1 tab once daily [Active]; hydrochlorothiazide 12.5 mg Oral tab 1 tab once daily [Active]; aspirin 81 mg Oral TbEC 1 tab once daily [Active]; Nucynta 75 mg oral tab as needed [Active]; methylprednisolone 4 mg Oral tab [Active]; - PMHx: 10:06 Atrial Fib; Diabetes - NIDDM; Hypertension; ll1 - PSHx: 10:06 Cardiac Albation; Right Shoulder Sx; Hernia repair; Cervical Fusion; Lower Discectomy; ll1 - Immunization history:: Client reports receiving the 2nd dose of the Covid vaccine, Flu vaccine is up to date. - Social history:: Smoking status: Patient reports the use of cigarette tobacco products, smokes one pack cigarettes per day. - Family history:: not pertinent. ROS: 11:05 Constitutional: Negative for fever, chills, and weight loss. ma2 11:05 All other systems are negative. Exam: 11:05 Constitutional: This is a well developed, well nourished patient who is awake, alert, ma2 and in no acute distress. Neck: Trachea midline, no thyromegaly or masses palpated, and no cervical lymphadenopathy. Supple, full range of motion without nuchal rigidity, or vertebral point tenderness. No Meningismus. Chest/axilla: Normal chest wall appearance and motion. Nontender with no deformity. No lesions are appreciated. Cardiovascular: Regular rate and rhythm with a normal S1 and S2. No gallops, murmurs, or rubs. Normal PMI, no JVD. No pulse deficits. Respiratory: Lungs have equal breath sounds bilaterally, clear to auscultation and percussion. No rales, rhonchi or wheezes noted. No increased work of breathing, no retractions or nasal flaring. Abdomen/GI: Soft, non-tender, with normal bowel sounds. No distension or tympany. No guarding or rebound. No evidence of tenderness throughout. Back: No spinal tenderness. No costovertebral tenderness. Full range of motion. MS/ Extremity: Pulses equal, no cyanosis. Neurovascular intact. Full, normal range of motion. Neuro: Awake and alert, GCS 15, oriented to person, place, time, and situation. Cranial nerves II-XII grossly intact. Motor strength 5/5 in all extremities. Sensory grossly intact. Cerebellar exam normal. Normal gait. Psych: Awake, alert, with orientation to person, place and time. Behavior, mood, and affect are within normal limits. Vital Signs: 10:06 BP 143 / 83; Pulse 87; Resp 17; Temp 98.7; Pulse Ox 100% ; Weight 129.27 kg; Height 6 ll1 ft. 2 in. (187.96 cm); Pain 5/10; 10:06 Body Mass Index 36.59 (129.27 kg, 187.96 cm) ll1 MDM: 10:55 Patient medically screened. ma2 11:05 Differential diagnosis: Fatigue Ligament Injury Osteoarthritis sprain. Data reviewed: md2 vital signs, nurses notes. Counseling: I had a detailed discussion with the patient and/or guardian regarding: the historical points, exam findings, and any diagnostic results supporting the discharge/admit diagnosis, the presence of at least one elevated blood pressure reading (>120/80) during this emergency department visit, the need for outpatient follow up. Response to treatment: the patient's symptoms have markedly improved after treatment. ED course: no red flags low back pain, sent from pcp for musclke relaxers, no trauma . Administered Medications: 11:13 Drug: Valium (diazepam) 10 mg Route: IM; Site: right gluteus; iw 11:25 Follow up: Response: No adverse reaction iw Disposition: 04/22/21 11:07 Discharged to Home. Impression: Low back pain. - Condition is Stable. - Discharge Instructions: Back Pain, Adult, Musculoskeletal Pain. - Prescriptions for Cyclobenzaprine 10 mg Oral Tablet - take 1 tablet by ORAL route every 8 hours As needed; 30 tablet. - Medication Reconciliation Form, Thank You Letter, Antibiotic Education, Prescription Opioid Use form. - Follow up: Private Physician; When: Tomorrow; Reason: If symptoms return, Continuance of care. Signatures: Sabra Sabillon RN RN Keaton Villar MD MD ma2 Neftali Akins RN RN ll1 Corrections: (The following items were deleted from the chart) 11:35 11:07 04/22/2021 11:07 Discharged to Home. Impression: Low back pain. Condition is iw Stable. Forms are Medication Reconciliation Form, Thank You Letter, Antibiotic Education, Prescription Opioid Use. Follow up: Private Physician; When: Tomorrow; Reason: If symptoms return, Continuance of care. [email or web address]
[2021-04-22] MEDS ORDERED: DIAZEPAM 10 MG/2 ML INJ SYRINGE ONE (11:29)
--- NOTE | 2021-04-22 11:36 | ER ---
Nurse's Notes [facility] Name: Jose Francisco Machado Age: 55 yrs Sex: Male : 1965 Arrival Date: 04/22/2021 Time: 09:55 Bed 23 Private MD: Diagnosis: Low back pain Presentation: 04/22 10:06 Chief complaint: Patient states: Low back pain/R hip leg pain since Thursday. Had 6 ll1 injections Thursday to lumbar area. No fever. Coronavirus screen: Client denies travel out of the [place] in the last 14 days. At this time, the client does not indicate any symptoms associated with coronavirus-19. Ebola Screen: Patient denies travel to an Ebola-affected area in the 21 days before illness onset. Initial Sepsis Screen: Does the patient meet any 2 criteria? No. Patient's initial sepsis screen is negative. Does the patient have a suspected source of infection? Yes: Bone or joint infection. Risk Assessment: Do you want to hurt yourself or someone else? Patient reports no desire to harm self or others. Onset of symptoms was April 20, 2021. 10:06 Method Of Arrival: Wheelchair ll1 10:06 Acuity: SUSI 3 ll1 Historical: - Allergies: 10:06 Cipro; ll1 10:06 Percocet; ll1 - Home Meds: 10:56 metformin 500 mg Oral tab 1 tab 2 times per day [Active]; valsartan 160 mg oral tab 1 iw tab once daily [Active]; Januvia 100 mg oral tab 1 tab once daily [Active]; hydrochlorothiazide 12.5 mg Oral tab 1 tab once daily [Active]; aspirin 81 mg Oral TbEC 1 tab once daily [Active]; Nucynta 75 mg oral tab as needed [Active]; methylprednisolone 4 mg Oral tab [Active]; - PMHx: 10:06 Atrial Fib; Diabetes - NIDDM; Hypertension; ll1 - PSHx: 10:06 Cardiac Albation; Right Shoulder Sx; Hernia repair; Cervical Fusion; Lower Discectomy; ll1 - Immunization history:: Client reports receiving the 2nd dose of the Covid vaccine, Flu vaccine is up to date. - Social history:: Smoking status: Patient reports the use of cigarette tobacco products, smokes one pack cigarettes per day. - Family history:: not pertinent. Screenin:54 Abuse screen: Denies threats or abuse. Denies injuries from another. Nutritional iw screening: No deficits noted. Tuberculosis screening: No symptoms or risk factors identified. Fall Risk None identified. Assessment: 10:53 General: Appears in no apparent distress. Behavior is calm, cooperative. Pain: iw Complains of pain in right lower back Pain radiates to right leg Pain currently is 5 out of 10 on a pain scale. Neuro: Level of Consciousness is awake, alert, obeys commands, Oriented to person, place, time, situation, Moves all extremities. Full function. Cardiovascular: Patient's skin is warm and dry. Respiratory: Respiratory effort is even, unlabored, Respiratory pattern is regular, symmetrical. GI: Abdomen is non-distended. Derm: Skin is intact, is healthy with good turgor. Musculoskeletal: Range of motion: intact in all extremities. Musculoskeletal: Reports pain in right leg. Vital Signs: 10:06 BP 143 / 83; Pulse 87; Resp 17; Temp 98.7; Pulse Ox 100% ; Weight 129.27 kg; Height 6 ll1 ft. 2 in. (187.96 cm); Pain 5/10; 10:06 Body Mass Index 36.59 (129.27 kg, 187.96 cm) ll1 ED Course: 09:55 Patient arrived in ED. as 10:06 Arm band placed on. ll1 10:08 Triage completed. ll1 10:45 Sabra Sabillon, RN is Primary Nurse. iw 10:53 Patient has correct armband on for positive identification. iw 10:54 No provider procedures requiring assistance completed. iw 10:55 Keaton Villar MD is Attending Physician. ma2 11:34 Patient did not have IV access during this emergency room visit. iw Administered Medications: 11:13 Drug: Valium (diazepam) 10 mg Route: IM; Site: right gluteus; iw 11:25 Follow up: Response: No adverse reaction iw Outcome: 11:07 Discharge ordered by . ma2 11:34 Discharged to home ambulatory, with family. iw 11:34 Condition: good 11:34 Discharge instructions given to patient, family, Instructed on discharge instructions, follow up and referral plans. medication usage, Demonstrated understanding of instructions, follow-up care, medications, Prescriptions given X 1. 11:35 Patient left the ED. iw Signatures: Dimple Serrano as Sabra Sabillon, MERCEDES RN iw Keaton Villar MD MD ma2 Neftali Akins RN RN ll1 Corrections: (The following items were deleted from the chart) 10:08 10:08 Patient placed in an exam room, on a stretcher, ll1 ll1
[2021-04-22 11:44] VITALS: BP 143/83; TEMP 98.7; O2SAT 100
== END 2021-04-22 11:35 | disposition home or self-care (01) ==
LOC: ER 09:52
DX: M54.5 Low back pain (principal); I48.91 Unspecified atrial fibrillation; E11.9 Type 2 diabetes mellitus without complications; I10 Essential (primary) hypertension; F17.210 Nicotine dependence, cigarettes, uncomplicated; M25.551 Pain in right hip; Z79.84 Long term (current) use of oral hypoglycemic drugs
CPT/HCPCS: 96372; 99283; J3360

== ENCOUNTER 2022-06-08 11:19 | Emergency (ER) | payer OTHER ==
--- OUTSIDE RECORDS SUMMARY | 2022-06-08 11:22 | XMS REPORT | Continuity of Care Document ---
:1965 Author Organization [facility] t Address [address] [place] [address] Care Team Providers Name Role Phone Frankie Rodriguez Primary Care Physician TOY RENAE Attending Clinician Unavailable Toy Renae MD Attending Clinician ANGÉLICA GARCIA Attending Clinician Unavailable Doctor Unassigned, [place] Attending Clinician Unavailable ALISHA WATERMAN Attending Clinician Unavailable MANDA TOPETE Attending Clinician Unavailable MANDA TOPETE Admitting Clinician Unavailable Payers Payer Name Policy Type Policy Number Effective Date Expiration Date S dulce [employer] CHOICE POS [id number] 2018 00:00:00 II Problems Condition Condition Condition Status Onset Resolution Last Treating Co mments Source Name Details Category Date Date Treatment Clinician Date No known No known Disease Unive rs active active ity of problems problems [place] [facility] [place] Allergies, Adverse Reactions, Alerts Allergy Allergy Status Severity Reaction(s) Onset Inactive Treating Comm ents Source Name Type Date Date Clinician Clindamy Propensi Active Hives Univer s srinivas ty to 2-15 ity of adverse 00:00: [place] reaction 00 Medical s Branch Oxycodon Propensi Active Other - See Generali z Univers e-Acetam ty to comments 2-15 ed skin ity o f inophen adverse 00:00: redness [place] reaction 00 and Medical s papules Branch on inner hands CLINDAMY DRUG Active Hives Univers SRINIVAS INGREDI 2-15 ity of 00:00: [place] 00 [facility] OXYCODON DRUG Active Other-Cmnt Univ ers E-ACETAM 2-15 ity of INOPHEN 00:00: [place] 00 [facility] Ciproflo Propensi Active Rash Univer s xacin ty to 07-30 ity of adverse 00:00: [place] reaction 00 [facility] Branch CIPROFLO DRUG Active High Rash Univers XACIN INGREDI 07-30 ity of 00:00: [place] 00 [facility] Social History Social Habit Start Date Stop Date Quantity Comments Source History of tobacco 1988-12-17 Cigarette Smoker University of use 00:00:00 [facility] Alcohol intake 2021-01-25 2021-01-25 .86 /d University of 00:00:00 00:00:00 [facility] Cigarettes smoked 2018-12-17 2018-12-17 Univers ity of current (pack per 00:00:00 00:00:00 [facility] ) - Reported Branch Cigarette 2018-12-17 2018-12-17 University of pack-years 00:00:00 00:00:00 [facility] Tobacco use and 2018-12-17 2018-12-17 Never used Universit y of exposure 00:00:00 00:00:00 [facility] Sex [birth year] At [birth year] Universit y of 00:00:00 00:00:00 [facility] Smoking Status Start Date Stop Date Source Current every day smoker 2018-12-17 00:00:00 Uni versity of [facility] Medications Ordered Filled Start Stop Current Ordering Indication Dosage Frequency Signature Comments Components Source Medication Medication Date Date Medication? Clinician (SIG) Name Name TRISHA Giles Yes [id number] TAKE 1 Univers mg tablet 9-24 TABLET BY ity o f 00:00: MOUTH [place] 00 EVERY DAY [facility] blood sugar Yes [id number] Use Daily. Univers diagnostic 3-29 Dx E11.9 ity o f (ACCU-CHEK 00:00: [place] GUIDE TEST 00 Medical STRIPS) Branch strip Lancets Yes [id number] Use Daily. Univers (ACCU-CHEK 3-29 Dx E11.9 ity o f FASTCLIX 00:00: [place] LANCET 00 Medical DRUM) Misc Branch metFORMIN Yes [id number] 500mg Take 1 U nivers 500 mg 3-26 tablet by ity of tablet 00:00: mouth 2 [place] 00 (two) Medical times Branch daily with meals. testosteron Yes [id number] 40.5mg Apply 2 Univers e 3-26 Pump to ity of (ANDROGEL) 00:00: area(s) [place] 20.25 00 daily. Medical mg/1.25 Branch gram (1.62 %) gel pump SITagliptin 0 2020- No 100mg Take 1 Un shanice (JANUVIA) 3-26 09-24 tablet by ity of 100 mg 00:00: 00:00 mouth [place] tablet 00 :00 daily. Medical Branch Pantoprazol 2019-11 Yes 40mg Take 40 mg Univers e 40 mg 1-20 by mouth ity of delayed-rel 15:53: daily. [place] 42 Medical suspension Branch ALBUTEROL 2019-11 Yes Inhale. Unive rs INHALE 1-20 ity of 15:53: [place] [address] Medical Branch metoprolol 2019-11 Yes 25mg Take 25 mg U nivers succinate 1-20 by mouth ity of XL 25 mg 24 15:53: daily. [place] hr tablet Medical Branch tapentadoL 2019-11 Yes Take by Univ ers 75 mg 1-20 mouth. ity of tablet 15:53: [place] [address] Medical Branch cholecalcif 2019-11 Yes Take by Uni vers jeet, 1-20 mouth. ity of vitamin D3, 15:53: [place] 50 [facility] 42 Medical (2,000 Branch unit) Chew rivaroxaban Yes Take by Uni vers (XARELTO 4-03 mouth. ity of ORAL) 09:46: [place] 54 Medical Branch cyclobenzap 2019-0 Yes Take by Uni vers rine HCl 4-03 mouth 3 ity of (FLEXERIL 09:45: (three) [place] ORAL) 33 times Medical daily as Branch needed. valsartan Yes 160mg Take 160 Uni vers 160 mg 2-14 mg by ity of tablet 00:00: mouth [place] 00 daily. Medical Branch hydroCHLORO Yes 12.5mg Take 12.5 Univers thiazide 8-09 mg by ity of 12.5 mg 10:04: mouth [place] capsule 40 daily. [facility] Immunizations Ordered Immunization Filled Immunization Date Status Commen ts Source Name Name SARS-COV-2 COVID-19 2021-02-08 Completed Unive rsity of PFIZER VACCINE 00:00:00 [facility] SARS-COV-2 COVID-19 2021-01-18 Completed Unive rsity of PFIZER VACCINE 00:00:00 [facility] Zoster Vaccine 2019-01-28 Completed University of Recombinant 00:00:00 [facility] [place] [facility] Influenza Virus 2016-07-23 Completed Universit y of Vaccine (3+ yrs) 00:00:00 [facility] Influenza Virus 2015-07-27 Completed Universit y of Vaccine 00:00:00 [facility] [place] [facility] Influenza Virus 2015-07-27 Completed Universit y of Vaccine (3+ yrs) 00:00:00 [facility] Pneumococcal 2015-07-27 Completed University o f Polysaccharide, 00:00:00 [facility] PPSV23 (PNEUMOVAX) [place] TDAP 2015-07-27 Completed University of 00:00:00 [facility] [place] [facility] Meningococcal 2015-03-05 Completed University of Polysaccharide 00:00:00 [facility] (groups A, C, Y and Branc h W-135) conjugate vaccine (MCV4P) Pneumococcal 13 2014-09-14 Completed Universit y of Conjugate, PCV13 00:00:00 [facility] (Prevnar 13) [place] Influenza Virus 2014-09-01 Completed Universit y of Vaccine 00:00:00 [facility] [place] [facility] Tetanus/Diptheria 2010-12-05 Completed Univers ity of 00:00:00 [facility] [place] [facility] HEP B, Adult Dosage 2003-09-14 Completed Unive rsity of 00:00:00 [facility] [place] [facility] MMR 2003-09-14 Completed University of 00:00:00 [facility] [place] [facility] Procedures This patient has no known procedures. Encounters Start End Encounter Admission Attending Care Care Encounter Source Date/Time Date/Time Type Type Clinicians Facility Department ID 2021-11-27 [facility] [id number] Common 12:36:54 [id number] [facility] 2021-08-02 2021-08-02 Outpatient Mervin RENAE [facility] [id number] Univers 15:00:00 15:00:00 TOY [id number] ity [facility] 2021-08-02 2021-08-02 [facility] [id number] Univers 15:00:00 15:00:00 TOY elis [facility] 2021-07-24 2021-07-24 [facility] [id number] Univers 00:00:00 00:00:00 Toy Gomez [id number] i ty of [place] [id number] Profess[place] [phone] [place] [address] 2021-02-15 2021-02-15 Outpatient STLMLC [facility] [id number] Common 00:00:00 00:00:00 [facility] 2021-02-08 2021-02-08 [facility] [id number] Univers 15:10:00 15:10:00 ANGÉLICA elis [facility] 2021-01-31 2021-01-31 [facility] [id number] 00:00:00 00:00:00 Toy Gomez [id number] [place] [id number] Professio [phone] [address] 2021-01-29 2021-01-29 Orders Doctor HENRRY [id number] 00:00:00 00:00:00 Only Unassigned, TASIA [id number] [place] [facility] [id number] 2021-01-28 2021-01-28 [facility] [id number] 00:00:00 00:00:00 Toy Gomez [id number] [place] [id number] Professio [phone] [address] 2021-01-25 2021-01-25 [facility] [id number] 12:58:48 13:55:57 Visit Toy Gomez [id number] [place] [id number] Professio [phone] nal [address] [facility] 2021-01-25 2021-01-25 Outpatient Mervin RENAE [facility] [id number] Univers 13:00:00 13:00:00 TOY [facility] 2021-01-25 2021-01-25 Outpatient Mervin RENAE [facility] [id number] Univers 13:00:00 13:00:00 TOY [id number] [facility] 2021-01-25 2021-01-25 Outpatient STLMLC ST[facility] [id number] Common 00:00:00 00:00:00 [facility] 2021-01-25 2021-01-25 [facility] [id number] 00:00:00 00:00:00 Toy Gomez [id number] [place] [id number] Professio [phone] [facility], [facility] 2021-01-18 2021-01-18 Outpatient [facility] [id number] Univers 16:00:00 16:00:00 [id number] [facility] 2021-01-18 2021-01-18 [facility] [id number] Univers 15:00:00 15:00:00 ALISHA [facility] 2021-01-04 2021-01-04 Outpatient STLMLC STLMLC [id number] Common 00:00:00 00:00:00 [facility] 2020-11-09 2020-11-09 Outpatient [facility] [id number] Univers 13:00:00 13:00:00 [facility] 2020-09-21 2020-09-21 [facility] [id number] Univers 16:00:00 16:00:00 TOY [facility] 2020-09-21 2020-09-21 [facility] [id number] Univers 16:00:00 16:00:00 TOY [facility] 2020-09-14 2020-09-15 Outpatient MANDA TOPETE [facility] [id number] [place] 00:00:00 00:00:[id number] 2020-08-10 2020-08-10 Outpatient Mervin RENAE [facility] [id number] Univers 10:00:00 10:00:00 TOY [id number] [facility] 2020-08-10 2020-08-10 Outpatient Mervin RENAE [facility] [id number] [facility] 10:00:00 10:00:00 TOY [facility] 2020-02-03 2020-02-03 Outpatient Mervin RENAE [facility] [id number] Univers 09:30:00 09:30:00 TOY [id number] [facility] 2020-02-03 2020-02-03 Outpatient Mervin RENAE [facility] [id number] [facility] 09:30:00 09:30:00 TOY [facility] Results Test Description Test Time Test Comments Results Result Comments Source SARS-COV2/RT-PCR ([facility]) 2020-03-11 00:42:00 Test Item Value Reference Range Interpretation Comme nts SARS-COV2/RT-PCR (test code = [id number]) Not Detected Not Detected, N egative SARS-COV-2 PERFORMING LAB (test code = [facility] [id number]) Negative results do not preclude SARS-CoV-2 infection and should not be used as the sole basis for patient management decisions. Negative results must be combined with clinical observations, patient history, and epidemiological information. A false negative result may occur if a specimen is improperly collected, transported or handled.The limit of detection for this assay is 250 copies/mL.This SARS CoV-2 test is a rapid, real-time RT-PCR test intended for the qualitative detection of nucleic acid from SARS-CoV-2 in a nasopharyngeal swab specimen collected from individuals suspected of COVID-19 by their healthcare provider.This test has not been Food and Drug Administration (FDA) cleared or approved and has been authorized by FDA under an Emergency Use Authorization (EUA). This EUA will be effective until the declaration that circumstances exist justifying the authorization of the emergency use of in vitro diagnostic tests for detection and/or diagnosis of COVID-19 is terminated under Section 564(b)(2) of the Act or the EUA is revoked under Section 564(g) of the Act.Fact Sheet for Healthcare Pro viders:https://www.Av[employer]ide/Documents/Xpert%20Xpress%20SARS%20CoV-2/Fact%20Sh eets/3023802%69ZAYR-LRZ-5%20HEALTHCARE%20PROVIDERS%20FACT%20SHEET.pdfFact Sheet for Healthcare Patients:https://www.ET Water/Documents/Xpert%20Xpress%20SARS%20CoV-2/Fact%20Sheets/3023801%20SARS-COV -2%20PATIENT%20FACT%20SHEET.pdfPerforming Laboratory:[facility] [place] [address]
--- NOTE | 2022-06-08 13:01 | EDPHYS ---
Physician Documentation [facility] Name: Jose Francisco Machado Age: 56 yrs Sex: Male : 1965 Arrival Date: 06/08/2022 Time: 11:20 Bed 20 Private MD: EVELIA Physician Mckinley Rasmussen HPI: 06/08 13:04 This 56 yrs old Male presents to ER via Ambulatory with complaints of r/o jl9 covid. C/o fatigue and mild cough. . 13:04 Onset: The symptoms/episode began/occurred yesterday. Associated signs and symptoms: jl9 Pertinent positives: cough. Modifying factors: The patient symptoms are alleviated by nothing, the patient symptoms are aggravated by nothing. Historical: - Allergies: 11:33 Cipro; ll1 11:33 Percocet; ll1 - PMHx: 11:33 Atrial Fib; Diabetes - NIDDM; Hypertension; Hypercholesterolemia; ll1 - PSHx: 11:33 2 back SX, neck SX, shoulder SX; hernia repair x 3; Ablation for A Fib; ll1 - Immunization history:: Client reports receiving the 2nd dose of the Covid vaccine, Pneumococcal vaccine is up to date, Flu vaccine is up to date. - Social history:: Smoking status: Patient reports the use of cigarette tobacco products, smokes one pack cigarettes per day. ROS: 13:05 Constitutional: Negative for fever, chills, and weight loss. jl9 13:05 Eyes: Negative for injury, pain, redness, and discharge, ENT: Negative for injury, pain, and discharge, Neck: Negative for injury, pain, and swelling, Cardiovascular: Negative for chest pain, palpitations, and edema. 13:05 Cardiovascular: Negative for chest pain, palpitations, and edema. 13:05 Abdomen/GI: Negative for abdominal pain, nausea, vomiting, diarrhea, and constipation, Back: Negative for injury and pain, : Negative for injury, bleeding, discharge, and swelling, MS/Extremity: Negative for injury and deformity, Skin: Negative for injury, rash, and discoloration, Neuro: Negative for headache, weakness, numbness, tingling, and seizure. 13:05 Respiratory: Positive for cough, with no reported sputum. Exam: 13:06 Constitutional: This is a well developed, well nourished patient who is awake, alert, jl9 and in no acute distress. Head/Face: Normocephalic, atraumatic. Eyes: Pupils equal round and reactive to light, extra-ocular motions intact. Lids and lashes normal. Conjunctiva and sclera are non-icteric and not injected. Cornea within normal limits. Periorbital areas with no swelling, redness, or edema. ENT: Mucous membranes moist. Neck: Trachea midline, no thyromegaly or masses palpated, and no cervical lymphadenopathy. Supple, full range of motion without nuchal rigidity, or vertebral point tenderness. No Meningismus. Chest/axilla: Normal chest wall appearance and motion. Nontender with no deformity. No lesions are appreciated. Cardiovascular: Regular rate and rhythm with a normal S1 and S2. No gallops, murmurs, or rubs. Normal PMI, no JVD. No pulse deficits. Respiratory: Lungs have equal breath sounds bilaterally, clear to auscultation and percussion. No rales, rhonchi or wheezes noted. No increased work of breathing, no retractions or nasal flaring. Abdomen/GI: Soft, non-tender, with normal bowel sounds. No distension or tympany. No guarding or rebound. No evidence of tenderness throughout. Back: No spinal tenderness. No costovertebral tenderness. Full range of motion. Skin: Warm, dry with normal turgor. Normal color with no rashes, no lesions, and no evidence of cellulitis. MS/ Extremity: Pulses equal, no cyanosis. Neurovascular intact. Full, normal range of motion. Neuro: Awake and alert, GCS 15, oriented to person, place, time, and situation. Cranial nerves II-XII grossly intact. Motor strength 5/5 in all extremities. Sensory grossly intact. Cerebellar exam normal. Normal gait. Psych: Awake, alert, with orientation to person, place and time. Behavior, mood, and affect are within normal limits. Vital Signs: 11:35 BP 127 / 86; Pulse 97; Resp 18; Temp 99.7; Pulse Ox 94% on R/A; Weight 123.38 kg; ll1 Height 6 ft. 2 in. (187.96 cm); Pain 3/10; 11:35 Body Mass Index 34.92 (123.38 kg, 187.96 cm) ll1 MDM: 11:25 Patient medically screened. jl9 13:06 Data reviewed: vital signs, nurses notes, lab test result(s), radiologic studies. 13:06 Counseling: I had a detailed discussion with the patient and/or guardian regarding: the jl9 historical points, exam findings, and any diagnostic results supporting the discharge/admit diagnosis, the need for outpatient follow up, to return to the emergency department if symptoms worsen or persist or if there are any questions or concerns that arise at home. 06/08 11:49 Order name: SARS-COV-2 RT PCR (Document "Date of Onset" if Symptomatic); Complete Time: jl9 13:16 06/08 11:49 Order name: Flu; Complete Time: 12:48 jl9 Administered Medications: No medications were administered Disposition Summary: 06/08/22 13:00 Discharge Ordered Location: Home jl9 Condition: Stable jl9 Diagnosis - SARS-associated coronavirus as the cause of diseases classified elsewhere jl9 Followup: jl9 - With: Private Physician - When: 1 - 2 days - Reason: Recheck today's complaints, Continuance of care, Re-evaluation by your physician Discharge Instructions: - Discharge Summary Sheet jl9 - COVID-19 jl9 Forms: - Work release form iw - Medication Reconciliation Form jl9 - Thank You Letter jl9 - Antibiotic Education jl9 - Prescription Opioid Use jl9 Prescriptions: - Paxlovid (EUA) 150 mg x 2- 100 mg Oral tablet - take 3 tablet by ORAL route 2 times per day for 5 days per package directions; jl9 30 tablet; Refills: 0, Product Selection Permitted - albuterol sulfate 90 mcg/actuation Inhalation HFA aerosol inhaler - inhale 2 puff by INHALATION route every 4-6 hours As needed; 18 gram; Refills: jl9 0, Product Selection Permitted - [id number] 4-10-20 mg/5 mL Oral liquid - take 5 milliliter by ORAL route every 4-6 hours as needed; 100 milliliter; jl9 Refills: 0, Product Selection Permitted Signatures: Dispatcher [employer] Neftali Sewell RN RN ll1 Ciro Ryan jl9
--- NOTE | 2022-06-08 13:01 | ER ---
Nurse's Notes [facility] Name: Jose Francisco Machado Age: 56 yrs Sex: Male : 1965 Arrival Date: 06/08/2022 Time: 11:20 Bed 20 Private MD: Diagnosis: SARS-associated coronavirus as the cause of diseases classified elsewhere Presentation: 06/08 11:35 Chief complaint: Patient states: Cough, FAGAN, body aches, fatigue started today. had ll1 positive covid test Thursday. Denies N/V/D. Coronavirus screen: Vaccine status: Patient reports receiving the 2nd dose of the covid vaccine. Client denies travel out of the [place] in the last 14 days. congestion, fatigue, fever, headache, muscle pain, Client presents with at least one sign or symptom that may indicate coronavirus-19. Standard/surgical mask placed on the client. Ebola Screen: Patient denies travel to an Ebola-affected area in the 21 days before illness onset. Initial Sepsis Screen: Does the patient meet any 2 criteria? HR > 90 bpm. No. Patient's initial sepsis screen is negative. Does the patient have a suspected source of infection? Yes: Productive cough/pneumonia. Risk Assessment: Do you want to hurt yourself or someone else? Patient reports no desire to harm self or others. Onset of symptoms was June 08, 2022. 11:35 Method Of Arrival: Ambulatory ll1 11:35 Acuity: SUSI 4 ll1 Triage Assessment: 11:37 General: Appears in no apparent distress. Behavior is calm, cooperative, appropriate ll1 for age. Pain: Complains of pain in head Pain currently is 3 out of 10 on a pain scale. Quality of pain is described as aching, Pain began 4 hours ago. Neuro: Reports headache weakness. Respiratory: Reports cough that is. Historical: - Allergies: 11:33 Cipro; ll1 11:33 Percocet; ll1 - PMHx: 11:33 Atrial Fib; Diabetes - NIDDM; Hypertension; Hypercholesterolemia; ll1 - PSHx: 11:33 2 back SX, neck SX, shoulder SX; hernia repair x 3; Ablation for A Fib; ll1 - Immunization history:: Client reports receiving the 2nd dose of the Covid vaccine, Pneumococcal vaccine is up to date, Flu vaccine is up to date. - Social history:: Smoking status: Patient reports the use of cigarette tobacco products, smokes one pack cigarettes per day. Screenin:38 Abuse screen: Denies threats or abuse. Nutritional screening: No deficits noted. ll1 Tuberculosis screening: No symptoms or risk factors identified. Fall Risk Total Belle Fall Scale indicates No Risk (0-24 pts). Assessment: 12:00 Reassessment: No changes from previously documented assessment. Patient and/or family ll1 updated on plan of care and expected duration. Pain level reassessed. 13:00 Reassessment: No changes from previously documented assessment. Patient and/or family ll1 updated on plan of care and expected duration. Pain level reassessed. Vital Signs: 11:35 BP 127 / 86; Pulse 97; Resp 18; Temp 99.7; Pulse Ox 94% on R/A; Weight 123.38 kg; ll1 Height 6 ft. 2 in. (187.96 cm); Pain 3/10; 11:35 Body Mass Index 34.92 (123.38 kg, 187.96 cm) ll1 ED Course: 11:20 Patient arrived in ED. am2 11:23 Arm band placed on Patient placed in an exam room, on a stretcher. ll1 11:25 [facility] jl9 11:25 Mckinley Rasmussen MD is Attending Physician. jl9 11:33 Neftali Akins, MERCEDES is Primary Nurse. ll1 11:37 Triage completed. ll1 11:38 Patient has correct armband on for positive identification. Bed in low position. Call ll1 light in reach. Side rails up X 1. Pulse ox on. NIBP on. 12:09 SARS-COV-2 RT PCR (Document "Date of Onset" if Symptomatic) Sent. iw 12:09 Flu Sent. iw 13:17 No provider procedures requiring assistance completed. Patient did not have IV access ll1 during this emergency room visit. Administered Medications: No medications were administered Medication: 11:38 VIS not applicable for this client. ll1 Outcome: 13:00 Discharge ordered by . [email or web address] 13:17 Discharged to home ambulatory. ll1 13:17 Condition: stable 13:17 Discharge instructions given to patient, Instructed on discharge instructions, follow up and referral plans. no drinking with medication, no driving heavy equipment, medication usage, Demonstrated understanding of instructions, follow-up care, medications, Prescriptions given X 3. 13:18 Patient left the ED. ll1 Signatures: Sabra Sabillon RN RN iw Moreno, Amanda am2 Neftali Akins RN RN ll1 Ciro Ryan jl9
[2022-06-08 13:23] VITALS: BP 127/86; TEMP 99.7; O2SAT 94
== END 2022-06-08 13:18 | disposition home or self-care (01) ==
LOC: ER 11:19
DX: U07.1 COVID-19 (principal); E11.9 Type 2 diabetes mellitus without complications; I10 Essential (primary) hypertension; F17.210 Nicotine dependence, cigarettes, uncomplicated; Z88.1 Allergy status to other antibiotic agents; Z88.5 Allergy status to narcotic agent
CPT/HCPCS: 87804 ×2; 99283; U0003